=== PATIENT | male | born 1995 | race Caucasian/White ===

== ENCOUNTER 2021-03-04 10:44 | Emergency (ER) | payer BC, SELFPAY ==
[2021-03-04 10:45] VITALS: BP 155/87; PULSE 81; RESP 19; TEMP 36.8; O2SAT 98; BMI 39.4
--- NOTE | 2021-03-04 11:49 | HMH.EDUTC ---
[facility] [place]ression: Exposure to COVID-19 virus Disposition: Home, Self-Care Condition on Discharge: Good Instructions: Preventing the Spread of Coronavirus Discharge Instructions Additional Instructions: You have been tested for COVID19. Based on your history of exposure, please go ahead and assume you are positive and quarantine yourself. [facility] will contact you with further instructions. Referrals: Provider,Referral, [Primary Care Provider] - Time of Disposition: 11:57 Medical Decision Making - Reginald Inquiry Pt receiving controlled substance: No Vital Signs: 03/04/21 10:45 Temperature 98.2 F Temperature Source Oral Pulse Rate [Left Radial] 81 Respiratory Rate 19 Blood Pressure [Right Arm] 155/87 H Blood Pressure Mean [Right Arm] 109 Blood Pressure Source [Right Arm] Automatic Cuff Blood Pressure Position [Right Arm] Sitting 02 Sat by Pulse Oximetry 98 Oxygen Delivery Method Room Air Orders (Tests/Meds): ORDERS Category Date Time Status Covid-19 Nasal PCR ([facility]) Routine Lab 03/04/21 11:10 [place] [facility] [place] - General Stated complaint: covid test Time Seen by Provider: 03/04/21 11:55 Mode of Arrival: Ambulatory Source of Information: Patient Limitations: No Limitations Description of Symptoms (Recalled from Triage Doc. by RN): c/o headache, runny nose, cough, body aches and was exposed to someone with covid HEENT Symptoms (Recalled from RN notes): Yes Resp Symptoms (Recalled from RN notes): Yes Skin Symptoms (Recalled from RN notes): No MS Symptoms (Recalled from RN notes): No Functional Status (Recalled from RN notes): wnl - History of Present Illness Provider Complaint: Headache, runny nose, sore throat, cough. Started yesterday. No fever. Has been exposed to COVID19. Onset (ago): day(s) (1) Location: head Relieving factors: none Exacerbating factors: none Associated symptoms: cough, headaches, malaise Treatments prior to arrival: none - Related Data Allergies Allergy/AdvReac Type Severity Reaction Status Date / Time No Known Allergies Allergy Verified 03/04/21 11:22 - Worker's Comp Is this a Worker's Comp case?: No [facility] History - Hepatitis A Screen Drug use history?: No High risk sexual behaviors?: No History of sexually transmitted infection?: No Currently employed?: No Childcare worker?: No Do you have indoor plumbing?: Yes Do you have electricity?: Yes Attestation statement:: This patient has been screened for Hepatitis A risk factors. I have reviewed the patient's past medical history: Yes ROS Obtained: Yes All systems reviewed & no additional complaints - Constitutional Constitutional: Reports body ache, Reports chills, Reports headache(s), Reports malaise - ENT Ears, Nose, Mouth, and Throat: Reports nasal congestion, Reports sore throat - Respiratory Respiratory: Reports cough Physical Exam - General General appearance: alert, in no apparent distress - Head Head exam: normocephalic - Eye Eye exam: Present: PERRL - ENT ENT exam: Present: normal oropharynx, TM's normal bilaterally - Neck Neck exam: Present: normal inspection. Absent: lymphadenopathy - Chest Chest inspection: Present: symmetric chest wall rise - Respiratory Respiratory exam: Present: normal lung sounds bilaterally - Cardiovascular Cardiovascular exam: Present: regular rate, normal rhythm - Neurological Exam Neurological exam: Present: alert, oriented X3 - Psychiatric Psychiatric exam: Present: normal affect, normal mood - Skin Skin exam: Present: warm, dry, intact
[2021-03-04 12:07] VITALS: BP 155/87; PULSE 81; RESP 19; TEMP 36.8; O2SAT 98
== END 2021-03-04 12:08 | disposition home or self-care (01) ==
PROVIDERS: Emergency Provider Physician Assistant
DX: Z20.822 Contact with and (suspected) exposure to COVID-19 (principal); R05 Cough; R51.9 Headache, unspecified
CPT/HCPCS: 99202; G0463; U0003

== ENCOUNTER 2021-03-09 10:18 | Emergency (ER) | payer BC, SELFPAY ==
[2021-03-09 10:19] VITALS: BP 154/86; PULSE 85; RESP 19; TEMP 37; O2SAT 98; BMI 39.4
--- NOTE | 2021-03-09 11:03 | HMH.EDUTC ---
[facility] [place] Disposition Clinical Impression: Exposure to COVID-19 virus Disposition: Home, Self-Care Condition on Discharge: Good Instructions: DI for COVID-19 (Suspected or Confirmed ), Preventing the Spread of Coronavirus Discharge Instructions Additional Instructions: *Monitor Temp, Over the counter Motrin or Tylenol as directed/as needed Tylenol every 4 hours and Motrin every 6 hours (as long as your family doctor has told you that you can take it) for fever or pain. and straight to ER if unable to lower temp less than 101.0 after medication given *Warm salt water gargles may help to soothe the throat *Throat Lozenges *Warm fluids like tea with honey may help to soothe the throat *Sleep elevated *Humidifier/Vaporizer Follow up IMMEDIATELY for new or worsening symptoms or no Noticeable improvement over the next 48-72 hours. 911 for difficulty breathing or swallowing You were tested for today for COVID19 your test result should be back in the next 24-48 hours, you may call to the [facility] to see if your test results are back in the next 48 hours [phone] [facility] hours are 9am-9pm You was given a handout with instructions for Self Quarantine and Self isolation for while you wait on test results and what to do if they are positive If you are positive the Health Dept will be contacting you also Prescriptions: Brompheniramine/Pseudoephed/Dm [Bromfed Dm Cough Syrup] 5 - 10 ml PO Q46H PRN #200 ml PRN Reason: Cough Transmission Status: Pending to [facility] #[id number] Referrals: Provider,Referral, [Primary Care Provider] - As needed Forms: Work/School Release Time of Disposition: 11:10 Medical Decision Making - Reginald Inquiry Pt receiving controlled substance: No Reginald was queried for this patient: No Vital Signs: 03/09/21 10:19 Temperature 98.6 F Temperature Source Oral Pulse Rate [Left Radial] 85 Respiratory Rate 19 Blood Pressure [Right Arm] 154/86 H Blood Pressure Mean [Right Arm] 108 Blood Pressure Source [Right Arm] Automatic Cuff Blood Pressure Position [Right Arm] Sitting 02 Sat by Pulse Oximetry 98 Oxygen Delivery Method Room Air [facility] [place] HPI - General Stated complaint: covid exposure, symptoms Time Seen by Provider: 03/09/21 11:03 Mode of Arrival: Ambulatory Source of Information: Patient Limitations: No Limitations Description of Symptoms (Recalled from Triage Doc. by RN): c/o runny nose, sore throat since this moring, exposed to friend 3 days ago HEENT Symptoms (Recalled from RN notes): Yes Resp Symptoms (Recalled from RN notes): No Skin Symptoms (Recalled from RN notes): No MS Symptoms (Recalled from RN notes): No Functional Status (Recalled from RN notes): NA - History of Present Illness Provider Complaint: Patient states that he was around friend about 3 days ago that tested positive for COVID States that he woke up this morning with runny nose, sore throat and cough States that he is wanting to get tested for COVID Denies SOA, Denies chest pain - Related Data Previous Rx's Medication Instructions Recorded Brompheniramine/Pseudoephed/Dm 5 - 10 ml PO Q46H PRN #200 ml 03/09/21 [Bromfed Dm Cough Syrup] Allergies Allergy/AdvReac Type Severity Reaction Status Date / Time No Known Allergies Allergy Verified 03/04/21 11:22 - Worker's Comp Is this a Worker's Comp case?: No [facility] History - Hepatitis A Screen Drug use history?: No High risk sexual behaviors?: No History of sexually transmitted infection?: No Currently employed?: No Childcare worker?: No Do you have indoor plumbing?: Yes Do you have electricity?: Yes Attestation statement:: This patient has been screened for Hepatitis A risk factors. I have reviewed the patient's past medical history: Yes ROS Obtained: Yes All systems reviewed & no additional complaints, Yes Systems reviewed as appropriate & no additional complaints - Constitutional Constitutional: Reports system reviewed and no additional co
[2021-03-09 11:34] VITALS: BP 154/86; PULSE 85; RESP 19; TEMP 37; O2SAT 98
== END 2021-03-09 11:36 | disposition home or self-care (01) ==
PROVIDERS: Emergency Provider Nurse Practitioner
DX: Z20.822 Contact with and (suspected) exposure to COVID-19 (principal); R05 Cough; J02.9 Acute pharyngitis, unspecified
CPT/HCPCS: 99202; G0463; U0003

== ENCOUNTER 2021-04-24 08:33 | Emergency (ER) | payer BC, MEDICAID, SELFPAY ==
[2021-04-24 08:34] VITALS: BP 153/87; PULSE 111; RESP 20; TEMP 37; O2SAT 100; BMI 39.9
--- NOTE | 2021-04-24 08:46 | XR_ITS ---
PROCEDURE: XR FOOT RT MIN 3V CLINICAL INDICATION: trauma COMPARISON: No exams were available for comparison FINDINGS: No fracture or dislocation. No lytic or blastic change. There is normal mineralization. The joint spaces are well-preserved. No significant degenerative/arthritic changes. No erosive changes evident. Other findings:None. IMPRESSION: No acute findings. Dictated by: Quan Molina MD 04/24/2021 09:46 Quan Molina MD in [place] 04/24/2021 09:46
--- NOTE | 2021-04-24 09:16 | HMH.EDEXTP ---
ED Disposition Clinical Impression: Sprain of right foot Qualifiers: Encounter type: initial encounter Qualified Code(s): S93.601A - Unspecified sprain of right foot, initial encounter Disposition: Home, Self-Care Condition on Discharge: Good Instructions: DI for Foot Sprain Prescriptions: Ibuprofen [Ibuprofen 800mg Tablet] 800 mg PO TIDP PRN #20 tab PRN Reason: Moderate Pain Transmission Status: Pending to [facility] #[id number] Referrals: Provider,Referral, [Primary Care Provider] - - Critical Care Critical Care Time: No Attestation: On 04/24/21, the high probability of a clinically significant, sudden or life threatening deterioration of the following system(s) required my full and direct attention, intervention and personal management. The time I documented below is in addition to time spent performing reported procedures but includes the following listed in this critical care notation. Medical Decision Making - Medical Records Medical records reviewed: Yes: I reviewed the patient's medical records. - Reginald Inquiry Pt receiving controlled substance: No Vital Signs: 04/24/21 08:34 Temperature 98.6 F Temperature Source Oral Pulse Rate [Left Radial] 111 H Respiratory Rate 20 Blood Pressure [Right Arm] 153/87 H Blood Pressure Mean [Right Arm] 109 Blood Pressure Source [Right Arm] Automatic Cuff Blood Pressure Position [Right Arm] Sitting 02 Sat by Pulse Oximetry 100 Oxygen Delivery Method Room Air Orders (Tests/Meds): ED MEDICATIONS Discontinued Medications Generic Name Dose Route Start Last Admin Trade Name Freq PRN Reason Stop Dose Admin Ibuprofen 800 mg 04/24/21 08:46 04/24/21 08:50 Ibuprofen 400 Mg Tablet PO 04/24/21 08:47 800 mg ONCE ONE Administration - Radiology Data #1 Image(s): Foot/Toes Image Reviewed: Yes I reviewed the patient's radiology results, Yes I reviewed the patient's radiology image, Yes I have reviewed radiologist's interpretation Preliminary Findings: Normal/NAD - Reevaluation(s) Time: 10:00 Reevaluation #1: On reevaluation, patient's pain is improved. There is no evidence of fracture. Patient discharged short course of analgesics. Given musculoskeletal precautions and strict return precautions. Verbalized understanding. Medical Decision Narrative: 25-year-old male presenting with some right foot pain. Patient had an injury on Saturday. Concern for fracture versus sprain. Work-up initiated. Extremity Problem HPI - General Chief complaint: Extremity Problem,Nontraumatic Stated complaint: right foot pain, unknown orgin Time Seen by Provider: 04/24/21 08:40 Mode of Arrival: Ambulatory Limitations: No Limitations Description of Symptoms (Recalled from ER Triage Doc. by RN): c/o right foot pain denies any injury, STates that he stepped off a ladder on Saturday and felt pain in his foot but it went away and then returned Saturday. Some swelling noted to the top of his foot - History of Present Illness HPI Narrative: This is a 25-year-old male presented to the emergency department with some right foot pain. Patient states that he stepped off a ladder on Saturday and felt some pain instantly in the midfoot. He states that the pain slightly improved through the weekend, however when he was working today he felt worsening pain in his foot. He states it is dull in nature. It stays in his foot. No radiation. Worse when he tries to walk. He is not having any swelling. No pain at the ankle. Denies any chest pain or shortness of breath. Abdominal pain or vomiting. No headache or change in vision. - Related Data Previous Rx's Medication Instructions Recorded Brompheniramine/Pseudoephed/Dm 5 - 10 ml PO Q46H PRN #200 ml 03/09/21 [Bromfed Dm Cough Syrup] Ibuprofen [Ibuprofen 800mg 800 mg PO TIDP PRN #20 tab 04/24/21 Tablet] Allergies Allergy/AdvReac Type Severity Reaction Status Date / Time No Known [place]
[2021-04-24 10:21] VITALS: BP 155/70; PULSE 70; RESP 16; TEMP 36.8; O2SAT 98
== END 2021-04-24 10:22 | disposition home or self-care (01) ==
PROVIDERS: Emergency Provider Emergency Medicine
DX: S93.601A Unspecified sprain of right foot, initial encounter (principal); W11.XXXA Fall on and from ladder, initial encounter; Y92.019 Unspecified place in single-family (private) house as the place of occurrence of the external cause
CPT/HCPCS: 73630; 99282

== ENCOUNTER 2021-05-08 20:34 | Emergency (ER) | payer BC, OTHER, SELFPAY ==
[2021-05-08 20:35] VITALS: BP 137/95; PULSE 120; RESP 21; TEMP 36.8; O2SAT 98; BMI 39.9
[2021-05-08 21:00] VITALS: BP 126/93; PULSE 108; O2SAT 97
--- NOTE | 2021-05-08 21:05 | CT_ITS ---
PROCEDURE INFORMATION: Exam: CT Abdomen And Pelvis With Contrast Exam date and time: 05/08/2021 9:05 PM Age: 26 years old Clinical indication: Nausea and vomiting; Abdominal pain; Generalized; Patient HX: Abd pain with n/v TECHNIQUE: Imaging protocol: Computed tomography of the abdomen and pelvis with contrast. Radiation optimization: All CT scans at this facility use at least one of these dose optimization techniques: automated exposure control; mA and/or kV adjustment per patient size (includes targeted exams where dose is matched to clinical indication); or iterative reconstruction. Contrast material: ISOVUE; Contrast volume: 75 ml; Contrast route: IV; Other contrast: Oral, gastro; COMPARISON: No relevant prior studies available. FINDINGS: Lungs: Lung bases are clear. Liver: There is enlargement of the liver, measuring 25 cm. There is a diffuse decrease in hepatic parenchymal density, consistent with fatty infiltration. The liver is otherwise unremarkable. Gallbladder and bile ducts: Normal. No calcified stones. No ductal dilation. Pancreas: Normal. No ductal dilation. Spleen: Normal. No splenomegaly. Adrenal glands: Normal. No mass. Kidneys and ureters: Normal. No hydronephrosis. Stomach and bowel: Unremarkable. No obstruction. No mucosal thickening. Appendix: No evidence of appendicitis. Intraperitoneal space: Unremarkable. No free air. No significant fluid collection. Vasculature: Unremarkable. No abdominal aortic aneurysm. Lymph nodes: Unremarkable. No enlarged lymph nodes. Urinary bladder: Unremarkable as visualized. Reproductive: Unremarkable as visualized. Bones/joints: Unremarkable. No acute fracture. Soft tissues: Unremarkable. IMPRESSION: Negative for acute abdominopelvic pathology.
[2021-05-08 21:09] LABS: Microscopic, Urine URINE MICROSCOPIC (MICROSCOPIC)
[2021-05-08 21:11] LABS: Appearance,Urine CLEAR (Clear); Basophils # 0.1 K/mm3 (0-0.2); Basophils % 0.6 % (0.1-2.0); Bilirubin,Urine Negative (Negative); Blood, Urine TRACE-I (Negative); Color,Urine YELLOW (Yellow); Eosinophils # 0.2 K/mm3 (0.0-0.4); Eosinophils % 0.9 % (0.1-12.0); Glucose,Urine (UA) Negative (Negative); Hematocrit 46.8 % (42.0-52.0); Hemoglobin 15.3 g/dL (14.1-18.0); Ketones,Urine Negative (Negative); Leukocyte Esterase,Urine Negative (Negative); Lymphocytes # 4.7 K/mm3 (0.7-4.5); Lymphocytes % 24.7 % (10-50); Mean Corpuscular HGB Conc 32.8 g/dL (31.8-35.4); Mean Corpuscular Hemoglobin 27.4 pg (27.0-31.2); Mean Corpuscular Volume 83.6 fl (80-94); Mean Platelet Volume 7.2 fl (7.4-10.4); Monocytes # 0.8 K/mm3 (0.1-1.0); Neutrophils # 13.3 K/mm3 (1.8-7.8); Neutrophils % 69.7 % (37.0-80.0); Nitrate,Urine Negative (Negative); PH,Urine 5.5 (5.0-8.5); Platelet Count 536 K/mm3 (142-424); Protein,Urine Negative (Negative); Red Cell Distribution Width 13.4 % (11.5-17.5); Specific Gravity, Urine >= 1.030 (1.005-1.030); Urobilinogen,Urine 0.2 EU/dl (0.2)
--- NOTE | 2021-05-08 21:16 | HMH.EDNVD ---
ED Disposition Clinical Impression: Abdominal pain Qualifiers: Abdominal location: generalized Qualified Code(s): R10.84 - Generalized abdominal pain Disposition: Home, Self-Care Condition on Discharge: Good Instructions: DI for Acute Abdominal Pain Additional Instructions: call gi in am for follow up Referrals: Provider,Referral, [Primary Care Provider] - - Critical Care Critical Care Time: No Attestation: On 05/08/21, the high probability of a clinically significant, sudden or life threatening deterioration of the following system(s) required my full and direct attention, intervention and personal management. The time I documented below is in addition to time spent performing reported procedures but includes the following listed in this critical care notation. Medical Decision Making - Medical Records Medical records reviewed: Yes: I reviewed the patient's medical records. - Reginald Inquiry Pt receiving controlled substance: No Vital Signs: 05/08/21 20:35 05/08/21 21:00 05/08/21 21:30 Temperature 98.2 F Temperature Source Oral Pulse Rate 108 H 96 H Pulse Rate [Right Radial] 120 H Respiratory Rate 21 Blood Pressure 126/93 H 139/76 Blood Pressure [Right Arm] 137/95 H Blood Pressure Mean [Right Arm] 109 Blood Pressure Source [Right Arm] Automatic Cuff Blood Pressure Position [Right Arm] Sitting 02 Sat by Pulse Oximetry 98 97 97 Oxygen Delivery Method Room Air Room Air Room Air 05/08/21 22:00 05/08/21 22:30 Temperature Temperature Source Pulse Rate 89 88 Pulse Rate [Right Radial] Respiratory Rate Blood Pressure 120/78 133/66 Blood Pressure [Right Arm] Blood Pressure Mean [Right Arm] Blood Pressure Source [Right Arm] Blood Pressure Position [Right Arm] 02 Sat by Pulse Oximetry 98 96 Oxygen Delivery Method Room Air Room Air - Lab Data Lab results reviewed: Yes: I reviewed the patient's lab results. Lab Results 05/08/21 20:51: WBC 19.0 H, RBC 5.60, Hgb 15.3, Hct 46.8, MCV 83.6, MCH 27.4, MCHC 32.8, RDW 13.4, Plt Count 536 H, MPV 7.2 L, Neut % (Auto) 69.7, Lymph % (Auto) 24.7, [place] % (Auto) 4.0, Eos % (Auto) 0.9, Baso % (Auto) 0.6, Neut # (Auto) 13.3 H, Lymph # (Auto) 4.7 H, [place] # (Auto) 0.8, Eos # (Auto) 0.2, Baso # (Auto) 0.1, Total Counted 100, Neutrophils % (Manual) 67, Lymphocytes % (Manual) 24, Monocytes % (Manual) 8, Eosinophils % (Manual) 1, Platelet Estimate Slight increase, RBC Morphology Normal, ESR 9 05/08/21 20:51: Sodium 139, Potassium 3.9, Chloride 106, Carbon Dioxide 24, Anion Gap 12.9, BUN 10, Creatinine 0.60 L, Estimated Creat Clear 390 H, Estimated GFR 166, Est GFR ( Amer) 200, Glucose 107 H, Calcium 9.2, Total Bilirubin 1.1, AST 31, ALT 34, Alkaline Phosphatase 68, C-Reactive Protein 8.6 H, Total Protein 8.1, Albumin 4.5, Globulin 3.6 H, Albumin/Globulin Ratio 1.3, Amylase 63, Lipase 45, Procalcitonin 0.064 05/08/21 20:51: Urine Color Yellow, Urine Appearance Clear, Urine pH 5.5, Ur Specific [place] >= 1.030, Urine Protein Negative, Urine Glucose (UA) Negative, Urine Ketones Negative, Urine Blood Trace-i, Urine Nitrate Negative, Urine Bilirubin Negative, Urine Urobilinogen 0.2, Ur Leukocyte Esterase Negative, Urine RBC 3-5, Urine WBC Occasional, Ur Squamous Epith Cells Occasional, Urine Bacteria None Result diagrams: 05/08/21 20:51 05/08/21 20:51 Orders (Tests/Meds): ED MEDICATIONS Generic Name Dose Route Start Last Admin Trade Name Freq PRN Reason Stop Dose Admin Lactated Ringer's 1,000 mls @ 999 mls/hr 05/08/21 21:15 05/08/21 21:15 Lactated Ringer's 1000 Ml Bag IV 05/08/21 22:15 999 mls/hr .Q1H1M ARISTEO Administration Sodium Chloride 8 ml 05/08/21 21:08 Sodium Chloride 0.9% 10ml Vial IV 06/07/21 21:07 NEEDED PRN dilute pepcid Discontinued Medications Generic Name Dose Route Start Last Admin Trade Name Freq PRN Reason Stop Dose Admin Famotidine 20 mg 05/08/21 21:08 05/08/21 21:16 Famoti
--- NOTE | 2021-05-08 21:17 | PC.NURSE ---
Pt finished PO contrast at this time
[2021-05-08 21:19] LABS: MANUAL DIFFERENTIAL MANUAL DIFFERENTIAL (MANUAL DIFF)
[2021-05-08 21:23] LABS: WBC,Urine Occasional #/hpf (0-3)
[2021-05-08 21:24] LABS: Alanine Aminotransferase 34 U/L (12-78); Albumin Level 4.5 g/dl (3.5-5.0); Albumin/Globulin Ratio 1.3 (1.1-1.8); Alkaline Phosphatase 68 U/L (38-126); Amylase 63 U/L (30-110); Anion Gap 12.9 mEq/L (5-15); Aspartate Amino Transferase 31 U/L (17-59); Bilirubin,Total 1.1 mg/dl (0.2-1.3); Blood Urea Nitrogen 10 mg/dl (9-20); Calcium 9.2 mg/dl (8.4-10.2); Carbon Dioxide 24 mmol/L (22.0-30.0); Chloride 106 mmol/L (98-107); Creatinine Clearance Estimated 390 mL/min (50-200); Estimated Glomerular Filt Rate 166 ml/min (>60); GFR (African American) 200 ML/MIN (>60); Globulin 3.6 g/dL (1.3-3.2); Glucose 107 mg/dl (74-100); Lipase 45 U/L (23-300); Potassium 3.9 mmoL/L (3.5-5.1); Sodium 139 mmol/L (136-145); Squamous Epithelial Cell,Urine Occasional #/hpf (0-5); Total Protein,Serum 8.1 g/dl (6.3-8.2)
[2021-05-08 21:30] VITALS: BP 139/76; PULSE 96; O2SAT 97
[2021-05-08 21:31] LABS: Eosinophils % 1 % (0-3); Lymphocytes % 24 % (10-50); Monocytes % 8 % (2-9); Neutrophils % 67 % (42-76); Total Cells Counted 100
[2021-05-08 21:32] LABS: Platelet Estimate Slight Increase; RBC Morphology Normal
[2021-05-08 21:37] LABS: C-Reactive Protein 8.6 mg/L (0-4)
[2021-05-08 21:48] LABS: Erythrocyte Sedimentation Rate 9 mm/hr (0-15)
[2021-05-08 21:50] LABS: Procalcitonin 0.064 ng/mL (0.0-2.0)
[2021-05-08 22:00] VITALS: BP 120/78; PULSE 89; O2SAT 98
[2021-05-08 22:30] VITALS: BP 133/66; PULSE 88; O2SAT 96
[2021-05-09 00:30] VITALS: BP 130/88; PULSE 92; RESP 16; TEMP 36.7; O2SAT 96
== END 2021-05-09 00:33 | disposition home or self-care (01) ==
PROVIDERS: Emergency Provider Emergency Medicine
DX: R10.9 Unspecified abdominal pain (principal)
CPT/HCPCS: 74177; 80053; 81001; 82150; 83690; 84145; 85007; 85025; 85651; 86140; 96365; 96375; 99283; J2405; Q9967

== ENCOUNTER 2021-07-24 11:31 | Emergency (ER) | payer OTHER, SELFPAY ==
[2021-07-24 13:12] VITALS: BP 0/0; PULSE 0; RESP 0; TEMP -17.7; TEMP 0
== END 2021-07-24 13:16 | disposition left against medical advice (07) ==
LOC: UTC 11:33
PROVIDERS: Emergency Provider Nurse Practitioner
DX: Z53.21 Procedure and treatment not carried out due to patient leaving prior to being seen by health care provider (principal)

== ENCOUNTER 2021-07-27 20:21 | Emergency (ER) | payer OTHER, SELFPAY ==
[2021-07-27 20:44] VITALS: BP 160/95; PULSE 102; RESP 14; TEMP 36.8; O2SAT 96; BMI 39.9
--- NOTE | 2021-07-27 20:48 | HMH.EDUTC ---
[facility] – [place], [place] Disposition Clinical Impression: Strep throat Disposition: Home, Self-Care Condition on Discharge: Good Instructions: Strep Throat, DI for Strep Throat Additional Instructions: *Monitor Temp, Over the counter Motrin or Tylenol as directed/as needed Tylenol every 4 hours and Motrin every 6 hours (as long as your family doctor has told you that you can take it) for fever or pain. and straight to ER if unable to lower temp less than 101.0 after medication given *Warm salt water gargles may help to soothe the throat *Throat Lozenges *Warm fluids like tea with honey may help to soothe the throat *Sleep elevated *Humidifier/Vaporizer *If you did not take Penicillin shot or was unable to, start taking antibiotic immediately and make sure that you take it for the FULL length of time although you should start to feel better in 24-48 hours *change toothbrush and toothpaste 24-48 hours after starting to take antibiotics so you do not reinfect yourself Monitor Temp. Tylenol and/or Ibuprofen as needed. ER if fever is no less than 101 despite alternating Tylenol and Ibuprofen * Encourage fluids, water, Gatorade, powerade, pedialyte if infant/toddler/or child *Cold fluids, popsicles and ice cream may feel good on his throat * Follow up IMMEDIATELY for new or worsening symptoms or no Noticeable improvement over the next 48-72 hours. 911 for difficulty breathing or swallowing You were tested for today for COVID19 your test result should be back in the next 24-48 hours, you may check your results on the [facility] My Health Portal if you have trouble logging on you may call You was given a handout with instructions for Self Quarantine and Self isolation for while you wait on test results and what to do if they are positive If you are positive the Health Dept will be contacting you also Make sure to take your Vitamins Vit. C Vit D and Zinc if you can take them Prescriptions: Benzonatate [Benzonatate 100mg cap] 100 mg PO Q8HP PRN #15 cap PRN Reason: Cough Transmission Status: Pending to [facility] # Amoxicillin [Amoxicillin 500mg Cap] 500 mg PO TID #30 cap Transmission Status: Pending to [facility] # Ondansetron [Zofran 4mg ODT] 4 mg PO TIDP PRN #10 tab PRN Reason: Vomiting Transmission Status: Pending to [facility] #[id number] Referrals: Provider,Referral, [Primary Care Provider] - As needed Time of Disposition: 21:29 Medical Decision Making - Reginald Inquiry Pt receiving controlled substance: No Reginald was queried for this patient: No Vital Signs: 07/27/21 20:44 07/27/21 21:17 Temperature 98.2 F 98.2 F Temperature Source Oral Pulse Rate 102 H Pulse Rate [Left] 102 H Respiratory Rate 14 14 Blood Pressure 160/95 H Blood Pressure [Right Arm] 160/95 H Blood Pressure Mean [Right Arm] 116 02 Sat by Pulse Oximetry 96 - Lab Data Lab results reviewed: Yes: I reviewed the patient's lab results. Lab Results 07/27/21 20:48: Influenza Type A Ag Negative, Influenza Type B Ag Negative 07/27/21 20:48: Strep Scn Rapid Clinic Positive A [facility] [place] [place] HPI - General Stated complaint: cough, headache congestion loss of taste, congesti Time Seen by Provider: 07/27/21 20:49 Mode of Arrival: Ambulatory Source of Information: Patient Limitations: No Limitations Description of Symptoms (Recalled from Triage Doc. by RN): pt c/o a fever, cough, loss of taste, sore throat, and n/v/d. pt finished his covid quarentine 07/12 HEENT Symptoms (Recalled from RN notes): Yes (sore throat) Resp Symptoms (Recalled from RN notes): Yes (cough) Skin Symptoms (Recalled from RN notes): No MS Symptoms (Recalled from RN notes): No Functional Status (Recalled from RN notes): wnl - History of Present Illness Provider Complaint: Patient state that he just got off quarantine for COVID on 07/12 States that he hasnt been able to taste States that for the last few days he has been having sore throat and hurts w
[2021-07-27 21:04] LABS: UTC Influenza A Antigen Negative (Negative); UTC Strep Screen (Rapid) Positive (Negative)
[2021-07-27 21:05] LABS: UTC Influenza B Antigen Negative (Negative)
[2021-07-27 21:17] VITALS: BP 160/95; PULSE 102; RESP 14; TEMP 36.8
== END 2021-07-27 21:43 | disposition home or self-care (01) ==
PROVIDERS: Emergency Provider Nurse Practitioner
DX: J02.0 Streptococcal pharyngitis (principal)
CPT/HCPCS: 87804; 87880; 99203; G0463

== ENCOUNTER → 2022-03-16 11:52 | Outpatient (CLI) | payer BC, OTHER, SELFPAY ==
--- NOTE | 2022-03-16 11:58 | XR_ITS ---
FINAL REPORT CLINICAL HISTORY: RT HIP PAIN FINDINGS: RIGHT HIP Two views of the right hip with an AP pelvis demonstrate no acute fracture or dislocation. The joint spaces appear normal. The visualized bony structures are well aligned. No soft tissue abnormality is seen. IMPRESSION: No acute bony abnormality. Reviewed, Interpreted and Dictated by Aubrey Sprague III, MD Transcribed by Caity Martinez Authenticated and . [facility]
== END ==
PROVIDERS: PCP Family Medicine; Visit Provider Family Medicine
DX: M25.551 Pain in right hip (principal)
CPT/HCPCS: 73502

== ENCOUNTER 2022-06-07 08:53 | Emergency (ER) | payer BC, SELFPAY ==
--- NOTE | 2022-06-07 09:16 | EXP.UTC ---
Discharge Plan Disposition Patient Disposition: Home, Self-Care Condition: Good Prescriptions Prescriptions: New srthnuwyhzapbgn-tujmzjfmm-HM [Bromfed DM] 2-30-10 mg/5 mL Syrup 5 ml PO Q6H PRN (Reason: Cough) Qty: 240 0RF amoxicillin-pot clavulanate 875-125 mg Tablet 1 tab PO Q12H Qty: 20 0RF methylprednisolone 4 mg Tablets,Dose Pack 4 mg PO DIRECTED Qty: 21 0RF No Action amoxicillin 500 MG capsule 500 mg PO TID Qty: 30 0RF benzonatate 100 MG capsule 100 mg PO Q8HP PRN (Reason: Cough) Qty: 15 0RF ondansetron 4 MG tablet,disintegrating 4 mg PO TIDP PRN (Reason: Vomiting) Qty: 10 0RF Referrals Follow up/Referrals: Karsten Draper MD [Primary Care Provider] - See instructions Activity Restrictions/Add. Instructions Additional Instructions/Restrictions: Drink plenty of fluids. Take tylenol or ibuprofen for pain or fever. Take the medications as directed. Follow up with your regular doctor. GO TO THE ER FOR ANY WORSENING SYMPTOMS Throw your tooth brush away and get a new one. Clinical Impressions Clinical Impression: Strep throat Instructions Patient Instructions: Strep Throat, DI for Strep Throat Discharge ED Provider: Kyle Galeano [facility] General Stated complaint: Sore throat, fever Time Seen by Provider: 06/07/22 09:16 History of Present Illness Provider Complaint: He states that he has had a sore throat, fever and body aches for the past 2 days. Related Data Previous Rx's Medication Instructions Recorded amoxicillin 500 mg capsule 500 mg PO TID #30 caps 07/27/21 benzonatate 100 mg capsule 100 mg PO Q8HP PRN Cough #15 caps 07/27/21 ondansetron 4 mg disintegrating 4 mg PO TIDP PRN Vomiting #10 tabs 07/27/21 tablet amoxicillin 875 mg-potassium 1 tab PO Q12H #20 tabs 06/07/22 clavulanate 125 mg tablet tcqkehkkfpziewj-ptzjzqrvqhyraad-JZ 5 ml PO Q6H PRN Cough #240 mL 06/07/22 2 mg-30 mg-10 mg/5 mL oral syrup (Bromfed DM) methylprednisolone 4 mg tablets in 4 mg PO DIRECTED #21 tabs 06/07/22 a dose pack Allergies Allergy/AdvReac Type Severity Reaction Status Date / Time No Known Allergies Allergy Verified 06/07/22 09:25 PFSH PFS Social History Smoking Status: Never smoker alcohol intake: never current occupational status: employed Travel in the last 8 weeks: None ROS Obtained: Yes All systems reviewed & no additional complaints except as documented Constitutional Constitutional: Reports chills and Reports fever(s) Eyes Eyes: Denies eye discharge ENT Ears, Nose, Mouth, and Throat: Reports as per HPI Cardiovascular Cardiovascular: Denies chest pain Respiratory Respiratory: Denies chest congestion and Reports cough Gastrointestinal Gastrointestingal: Reports nausea; Denies abdominal pain, constipation, cramping, diarrhea or vomiting Musculoskeletal Musculoskeletal: Denies arthralgias Integumentary/Breasts Skin/Breast: Denies rash Neurologic Neurologic: Denies paresthesias Physical Exam General General appearance: alert and in no apparent distress Head Head exam: atraumatic, normocephalic and normal inspection Eye Eye exam: Present normal appearance, PERRL and EOMI ENT ENT exam: Present mucous membranes moist and normal external ear exam Expanded ENT Exam TM/Canal exam: Bilateral TM: erythema and bulging Nose exam: Absent sinus tenderness Mouth exam: Present normal external inspection; Absent drooling Teeth exam: Present normal inspection Throat exam: Present tonsillar erythema, tonsillomegaly and tonsillar exudate Neck Neck exam: Present normal inspection, full ROM and trachea midline; Absent tenderness, meningismus or lymphadenopathy Chest Chest inspection: Present normal inspection and symmetric chest wall rise; Absent tenderness Respiratory Respiratory exam: Present normal lung sounds bilaterally; Absent respiratory distress, wheezes or stridor Cardiova
[2022-06-07 09:23] VITALS: BP 150/79; PULSE 90; RESP 18; TEMP 36.9; O2SAT 98; BMI 39.1
[2022-06-07 09:29] LABS: UTC Strep Screen (Rapid) Positive (Negative)
[2022-06-07 09:57] VITALS: BP 150/79; PULSE 90; RESP 18; TEMP 36.9
== END 2022-06-07 10:03 | disposition home or self-care (01) ==
PROVIDERS: Emergency Provider Nurse Practitioner Family; PCP Family Medicine
DX: J02.0 Streptococcal pharyngitis (principal); B95.0 Streptococcus, group A, as the cause of diseases classified elsewhere; R50.9 Fever, unspecified; M79.10 Myalgia, unspecified site; R05.9 Cough, unspecified; Z79.52 Long term (current) use of systemic steroids; Z79.899 Other long term (current) drug therapy
CPT/HCPCS: 87880; 99213; G0463

== ENCOUNTER 2022-11-06 19:27 | Emergency (ER) | payer BC, SELFPAY ==
[2022-11-06 19:29] VITALS: BP 171/100; PULSE 115; RESP 20; TEMP 37; O2SAT 99; BMI 40.6
--- NOTE | 2022-11-06 19:37 | CT_ITS ---
PROCEDURE INFORMATION: Exam: CT Head Without Contrast Exam date and time: 11/06/2022 7:58 PM Age: 27 years old Clinical indication: Injury or trauma; Additional info: Hit head TECHNIQUE: Imaging protocol: Computed tomography of the head without contrast. Radiation optimization: All CT scans at this facility use at least one of these dose optimization techniques: automated exposure control; mA and/or kV adjustment per patient size (includes targeted exams where dose is matched to clinical indication); or iterative reconstruction. REPORTING DATA: Count of CT and Cardiac NM exams in prior 12 months: This patient has received 0 known CTs and 0 known cardiac nuclear medicine studies in the 12 months prior to the current study. COMPARISON: No relevant prior studies available. FINDINGS: Brain: Normal. No hemorrhage. Unremarkable white matter. No mass effect. Cerebral ventricles: No ventriculomegaly. Paranasal sinuses: Visualized sinuses are unremarkable. No fluid levels. Mastoid air cells: Visualized mastoid air cells are well aerated. Bones/joints: Unremarkable. No acute fracture. Soft tissues: Unremarkable. IMPRESSION: No acute intracranial abnormality.
[2022-11-06 19:51] LABS: Coronavirus 19, PCR Not Detected (NotDetected); Influenza A, PCR Not Detected (NotDetected); Influenza B, PCR Not Detected (NotDetected)
[2022-11-06 19:56] LABS: Basophils # 0.1 K/mm3 (0-0.2); Basophils % 0.6 % (0.1-2.0); Chloride 100 mmol/L (98-107); Eosinophils # 0.2 K/mm3 (0.0-0.4); Eosinophils % 1.3 % (0.1-12.0); Hematocrit 45.3 % (42.0-52.0); Hemoglobin 14.9 g/dL (14.1-18.0); Lymphocytes # 2.9 K/mm3 (0.7-4.5); Mean Corpuscular HGB Conc 32.9 g/dL (31.8-35.4); Mean Corpuscular Hemoglobin 26.8 pg (27.0-31.2); Mean Corpuscular Volume 81.4 fl (80-94); Monocytes # 0.9 K/mm3 (0.1-1.0); Monocytes % 7.7 % (1.7-9.3); Neutrophils # 7.5 K/mm3 (1.8-7.8); Neutrophils % 65.3 % (37.0-80.0); Platelet Count 439 K/mm3 (142-424); Potassium 3.4 mmoL/L (3.5-5.1); Red Blood Count 5.57 M/mm3 (4.60-6.20); Red Cell Distribution Width 13.5 % (11.5-17.5); Sodium 140 mmol/L (136-145); White Blood Count 11.4 K/mm3 (4.8-10.8)
[2022-11-06 19:58] LABS: Amylase 58 U/L (30-110); Blood Urea Nitrogen 14 mg/dl (9-20); Creatinine Clearance Estimated 235 mL/min (50-200); Estimated Glomerular Filt Rate 91 ml/min (>60); GFR (African American) 110 ML/MIN (>60)
[2022-11-06 19:59] LABS: Alanine Aminotransferase 51 U/L (12-78); Albumin Level 4.7 g/dl (3.5-5.0); Albumin/Globulin Ratio 1.4 (1.1-1.8); Alkaline Phosphatase 67 U/L (38-126); Anion Gap 16.4 mEq/L (5-15); Aspartate Amino Transferase 40 U/L (17-59); Bilirubin,Total 1.5 mg/dl (0.2-1.3); Calcium 8.9 mg/dl (8.4-10.2); Carbon Dioxide 27 mmol/L (22.0-30.0); Globulin 3.3 g/dL (1.3-3.2); Glucose 96 mg/dl (74-100); Lipase 56 U/L (23-300)
[2022-11-06 20:05] LABS: C-Reactive Protein 32.7 mg/L (0-4)
[2022-11-06 20:31] VITALS: BP 129/75; PULSE 98; O2SAT 96
[2022-11-06 20:35] LABS: Procalcitonin 0.161 ng/mL (0.0-2.0)
[2022-11-06 20:42] LABS: Erythrocyte Sedimentation Rate 15 mm/hr (0-15)
[2022-11-06 21:00] VITALS: BP 122/67; PULSE 101; O2SAT 97
--- NOTE | 2022-11-06 21:14 | PC.NURSE ---
in room at this time speaking with patient
--- NOTE | 2022-11-06 21:17 | HMH.EDTRAUMA ---
Discharge Plan Disposition Patient Disposition: Home, Self-Care Chief Complaint: Head Injury Prescriptions Prescriptions: No Action No Known Home Medications Referrals Follow up/Referrals: Karsten Draper MD [Primary Care Provider] - See instructions Clinical Impressions Clinical Impression: Head injury due to trauma, Post-concussional syndrome Instructions Patient Instructions: DI for Closed Head Injury Discharge ED Provider: Corey PEREZ)Ludwig Trauma Alert The Trauma Alert Section documentation for [id number] Justin Lopez was populated with data that defaulted in from the production supervisor in the Trauma Alert Triage Assessment on f_Reg Service Date] to provide within this report, the status of the patient on arrival to the ED during the Trauma Alert. Arrival Mode of Arrival: Ambulatory Information Source: Patient, Spouse and Medical Record Limitations: No Limitations Description of Symptoms (Recalled from ER Triage Doc. by RN): pt states yesterday was bend over and rised up and hit head on mantle. pt c/o KANG, n/v and fever. Height/Weight/BMI Height: 1.91 m Weight: 147.418 kg Body Mass Index: 40.6 Immunization Status Hx Immunizations Up to Date: Yes Trauma HPI General Chief Complaint: Head Injury Stated Complaint: AO 11/05@1300 [address],KANG,Nausa Time Seen by Provider: 11/06/22 21:18 Mode of Arrival: Ambulatory Source of Information: Patient, Spouse and Medical Record Limitations: No Limitations Description of Symptoms (Recalled from ER Triage Doc. by RN): pt states yesterday was bend over and rised up and hit head on mantle. pt c/o KANG, n/v and fever. History of Present Illness HPI narrative: raised up and hit head yesterday at 1300 - no loc but has kang but no neck pain and has nausea and vomiting but no visual or speech sx and no sensory or motor sx - temp of 100 at home complaint: injury Onset (ago): day(s) Loss of Consciousness: no Location: head Severity: moderate Associated symptoms: headaches, nausea and vomiting Related Data Home Medications Medication Instructions Recorded Confirmed No Known Home Medications 11/06/22 11/06/22 Allergies Allergy/AdvReac Type Severity Reaction Status Date / Time No Known Allergies Allergy Verified 06/07/22 09:25 [facility] Disclaimer: The information contained in this section may have been updated after the patient was seen, as this information can be updated by other users. Social History (Updated 06/07/22 @ 09:38 by Kyle Galeano APRN) Smoking Status: Never smoker alcohol intake: never current occupational status: employed Travel in the last 8 weeks: None ROS Obtained: Yes All systems reviewed & no additional complaints except as documented Physical Exam General General appearance: alert Head Head exam: normocephalic and normal inspection Eye Eye exam: Present PERRL and EOMI; Absent nystagmus ENT ENT exam: Present mucous membranes moist Neck Neck exam: Present trachea midline Respiratory Respiratory exam: Present normal lung sounds bilaterally; Absent respiratory distress Cardiovascular Cardiovascular exam: Present regular rate Abdominal Exam Abdominal exam: Present soft Extremities Exam Extremities exam: Present full ROM Neurological Exam Neurological exam: Present alert, oriented X3, CN II-XII intact, normal gait and other (gcs=15); Absent motor sensory deficit Psychiatric Psychiatric exam: Present normal affect Skin Skin exam: Absent rash Medical Decision Making Medical Records Medical records reviewed: Yes I reviewed the patient's medical records. Reginald Inquiry Pt receiving controlled substance: No Vital Signs: 11/06/22 19:29 11/06/22 20:31 Temperature 98.6 F Temperature Source Oral Pulse Rate 98 H Pulse Rate [Right] 115 H Respiratory Rate 20 Blood Pressure 129/75 Blood Pressure [Right Arm] 171/100 H Blood Pressure Mean [Right Arm] 123 02 Sat by Pulse Oximetry
[2022-11-06 21:20] VITALS: BMI 40.6
[2022-11-06 21:30] VITALS: BP 140/78; PULSE 100; O2SAT 96
--- NOTE | 2022-11-06 21:32 | PC.NURSE ---
spoke with dr burnett re: follow up
[2022-11-06 21:36] VITALS: BP 126/80; PULSE 81; RESP 17; TEMP 36.6; O2SAT 98
== END 2022-11-06 21:39 | disposition home or self-care (01) ==
PROVIDERS: Emergency Provider Emergency Medicine; PCP Family Medicine
DX: F07.81 Postconcussional syndrome (principal); R11.0 Nausea; W01.190A Fall on same level from slipping, tripping and stumbling with subsequent striking against furniture, initial encounter
CPT/HCPCS: 70450; 80053; 82150; 83690; 84145; 85025; 85651; 86140; 96360; 96374; 99284; 99285; C9803; J2405; U0003; U0005

== ENCOUNTER → 2023-02-01 13:06 | Outpatient (CLI) | payer BC, SELFPAY | PROVIDERS: PCP Family Medicine; Visit Provider Family Medicine | DX: G47.30 Sleep apnea, unspecified (principal); I10 Essential (primary) hypertension; E66.01 Morbid (severe) obesity due to excess calories | CPT/HCPCS: G0399 ==

== ENCOUNTER → 2023-04-16 16:00 | Outpatient (CLI) | payer BC, SELFPAY ==
[2023-04-16 18:23] LABS: Adenovirus,PCR Not Detected (NotDetected); Bordetella Pertussis Not Detected (NotDetected); Chlamydophila Pneumoniae, PCR Not Detected (NotDetected); Coronavirus 19, PCR Not Detected (NotDetected); Coronavirus 229E Not Detected (NotDetected); Coronavirus NL63 Not Detected (NotDetected); Coronavirus OC43 Not Detected (NotDetected); Coronovirus HKU1,PCR Not Detected (NotDetected); Human Metapneumovirus Not Detected (NotDetected); Influenza A, PCR Not Detected (NotDetected); Influenza AH1, 2009 Not Detected (NotDetected); Influenza AH1, PCR Not Detected (NotDetected); Influenza AH3,PCR Not Detected (NotDetected); Influenza B, PCR Not Detected (NotDetected); Mycoplasma Pneumoniae, PCR Not Detected (NotDetected); Parainfluenza 1, PCR Not Detected (NotDetected); Parainfluenza 2, PCR Not Detected (NotDetected); Parainfluenza 3, PCR Not Detected (NotDetected); Parainfluenza 4, PCR Not Detected (NotDetected); Respiratory Syncytial Virus Not Detected (NotDetected); Rhinovirus/Enterovirus Not Detected (NotDetected)
== END ==
LOC: LAB.DROPOF 04-17 08:01
PROVIDERS: PCP Nurse Practitioner Family; Visit Provider Nurse Practitioner Family
DX: J02.9 Acute pharyngitis, unspecified (principal); R50.9 Fever, unspecified; R19.7 Diarrhea, unspecified
CPT/HCPCS: 87070; 87581; 87632; 87798

== ENCOUNTER 2023-06-04 02:19 | Emergency (ER) | payer BC, SELFPAY ==
[2023-06-04 02:20] VITALS: BP 153/91; PULSE 97; RESP 21; TEMP 36.5; O2SAT 100; BMI 39.9
[2023-06-04 02:49] LABS: Basophils # 0.1 K/mm3 (0-0.2); Basophils % 0.9 % (0.1-2.0); Eosinophils # 0.2 K/mm3 (0.0-0.4); Eosinophils % 1.7 % (0.1-12.0); Hematocrit 44.7 % (42.0-52.0); Hemoglobin 15.1 g/dL (14.1-18.0); Lymphocytes # 5.8 K/mm3 (0.7-4.5); Lymphocytes % 41.5 % (10-50); Mean Corpuscular HGB Conc 33.8 g/dL (31.8-35.4); Mean Corpuscular Hemoglobin 27.9 pg (27.0-31.2); Mean Corpuscular Volume 82.6 fl (80-94); Mean Platelet Volume 7.2 fl (7.4-10.4); Monocytes # 0.8 K/mm3 (0.1-1.0); Monocytes % 5.5 % (1.7-9.3); Neutrophils # 7.1 K/mm3 (1.8-7.8); Neutrophils % 50.5 % (37.0-80.0); Platelet Count 422 K/mm3 (142-424); Red Blood Count 5.41 M/mm3 (4.60-6.20); Red Cell Distribution Width 13.6 % (11.5-17.5)
[2023-06-04 02:51] LABS: Chloride 103 mmol/L (98-107); Potassium 3.7 mmoL/L (3.5-5.1); Sodium 140 mmol/L (136-145)
[2023-06-04 02:53] LABS: Blood Urea Nitrogen 13 mg/dl (9-20); Creatinine Clearance Estimated 287 mL/min (50-200); Estimated Glomerular Filt Rate 117 ml/min (>60); GFR (African American) 141 ML/MIN (>60)
[2023-06-04 02:54] LABS: Alanine Aminotransferase 49 U/L (12-78); Albumin Level 4.6 g/dl (3.5-5.0); Albumin/Globulin Ratio 1.3 (1.1-1.8); Alkaline Phosphatase 63 U/L (38-126); Anion Gap 12.7 mEq/L (5-15); Aspartate Amino Transferase 42 U/L (17-59); Carbon Dioxide 28 mmol/L (22.0-30.0); Globulin 3.5 g/dL (1.3-3.2); Glucose 115 mg/dl (74-100); Lipase 52 U/L (23-300); Total Protein,Serum 8.1 g/dl (6.3-8.2)
--- NOTE | 2023-06-04 04:11 | HMH.EDGENADL ---
Discharge Plan Disposition Patient Disposition: Home, Self-Care Prescriptions Prescriptions: New ondansetron HCl 4 mg tablet 4 mg PO Q8H PRN (Reason: nausea and vomiting) 5 Days Qty: 30 0RF Referrals Follow up/Referrals: Karsten Draper MD [Primary Care Provider] - See instructions Activity Restrictions/Add. Instructions Additional Instructions/Restrictions: Please follow-up with your primary care provider. Please return to the emergency department if you develop any new or worsening symptoms or become concerned for your health. Clinical Impressions Clinical Impression: Abdominal pain Qualifiers: Abdominal location: generalized Qualified Code(s): R10.84 - Generalized abdominal pain Instructions Patient Instructions: DI for Acute Abdominal Pain Discharge ED Provider: Jose Holman Adult HPI General Chief complaint: Abdominal Pain Stated complaint: Stomach pain with vomiting Time Seen by Provider: 06/04/23 02:20 Mode of Arrival: Ambulatory Source of Information: Patient and Spouse Limitations: No Limitations Description of Symptoms (Recalled from ER Triage Doc. by RN): Patient reports diffuse abdominal pain that started approximately 9pm that is intermittent in intensity. Patient has had N/V/D. Patient reports he has had similar episodes approximately 1 year previous with extensive workup and no diagnoses, states that this feels similar. History of Present Illness HPI narrative: 28-year-old male presents with abdominal pain. Reports it is generalized in nature. He is unable to further localize it. He reports that it is associated with nausea vomiting and diarrhea. It began at approximately 9 PM. It was sudden in onset. He reports that he has had numerous episodes like this in the past, it happened much more frequently a few years ago. The episodes always start the same. He reports that he belches a weird taste, and then has onset of abdominal pain vomiting and sometimes has diarrhea. He reports she has been seen by his PCP as well as multiple specialist, has had scopes, scans, blood work, biopsies, without any elucidation of etiology. He reports that every time I come to the ER with the symptoms I get a CT scan and it is always negative . He denies any recent fever or illness. Denies any blood in the vomiting or stool. He reports that the pain will often stop on its own after many hours, but sometimes he cannot take it and he comes to the ER. He reports that morphine usually helps make the pain stop. Related Data Previous Rx's Medication Instructions Recorded ondansetron HCl 4 mg tablet 4 mg PO Q8H PRN nausea and 06/04/23 vomiting 5 days #30 tabs Allergies Allergy/AdvReac Type Severity Reaction Status Date / Time No Known Allergies Allergy Verified 04/16/23 15:55 [facility] Disclaimer: The information contained in this section may have been updated after the patient was seen, as this information can be updated by other users. 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 (Updated 06/04/23 @ 04:11 by Jose Holman MD) Abdominal pain Exposure to COVID-19 virus Head injury due to trauma No significant past medical history Patient left before triage assessment Post-concussional syndrome Sprain of right foot Strep throat Surgical History (Updated 04/16/23 @ 15:56 by Dieter Crowell) No significant past surgical history Family History (Updated 04/16/23 @ 15:56 by Dieter Crowell) Other No significant family history Social History (Updated 06/07/22 @ 09:38 by Kyle Galeano APRN) Smoking Status: Never smoker alcohol intake: never current occupational status: employed Travel in the last 8 weeks: None ROS Obtained: Yes All systems reviewed & no additional complaints except as documented Physical Exam General General appearance: alert, in no apparent distress and obese Head Head exam: atraumatic and normocephalic Eye Eye exam: Present normal appearance, PERRL and EOMI ENT EN
[2023-06-04 04:18] VITALS: BP 130/81; PULSE 80; RESP 15; TEMP 36.6; O2SAT 98
== END 2023-06-04 04:20 | disposition home or self-care (01) ==
PROVIDERS: Emergency Provider Emergency Medicine; PCP Family Medicine
DX: R10.9 Unspecified abdominal pain (principal); R11.2 Nausea with vomiting, unspecified; R19.7 Diarrhea, unspecified
CPT/HCPCS: 80053; 83690; 85025; 96361; 96374; 96375; 99285; J2405

== ENCOUNTER 2023-07-31 16:28 | Emergency (ER) | payer BC, SELFPAY ==
[2023-07-31 17:30] VITALS: BP 158/79; PULSE 95; RESP 18; TEMP 37.1; O2SAT 99; BMI 27.5
[2023-07-31 17:59] LABS: UTC Strep Screen (Rapid) Negative (Negative)
[2023-07-31 18:00] LABS: UTC Influenza A Antigen Negative (Negative); UTC Influenza B Antigen Negative (Negative)
--- NOTE | 2023-07-31 18:01 | EXP.UTC ---
Discharge Plan Disposition Patient Disposition: Home, Self-Care Condition: Good Prescriptions Prescriptions: New bytgysywrthlllu-ppqxdowje-FC [Bromfed DM] 2-30-10 mg/5 mL syrup 5 ml PO QID PRN (Reason: cold symptoms) 3 Days Qty: 118 0RF No Action ondansetron HCl 4 mg tablet 4 mg PO Q8H PRN (Reason: nausea and vomiting) 5 Days Qty: 30 0RF Referrals Follow up/Referrals: Karsten Draper MD [Primary Care Provider] - See instructions Activity Restrictions/Add. Instructions Additional Instructions/Restrictions: No sign of a bacterial infection. Likely viral. Viruses can take 7-14 days to run their course. Nasal saline and bulb syringe or nose Mariela to remove nasal drainage to help with nasal congestion. Hard to eat, drink, sleep with nasal congestion so important to keep this cleaned out. Monitor temp. Tylenol or Motrin as needed for pain or fever Encourage fluids, water, Gatorade, Powerade, Pedialyte if /toddler/child Warm salt water gargles Warm fluids Sore throat lozenges Sleep elevated Humidifier/vaporizer Follow-up immediately for new or worsening symptoms or no noticeable improvement over the next 48-72 hours. Clinical Impressions Clinical Impression: URI (upper respiratory infection) Qualifiers: URI type: unspecified viral URI Qualified Code(s): J06.9 - Acute upper respiratory infection, unspecified Instructions Patient Instructions: DI for Viral Upper Respiratory Infection -- Adult [facility]charge [facility] HPI General Stated complaint: vomiting, rafita Mode of Arrival: Ambulatory Source of Information: Patient Limitations: No Limitations Time Seen by Provider: 07/31/23 18:01 Description of Symptoms (Recalled from Triage Doc. by RN): congestion, vomiting, sore throat, and body aches HEENT Symptoms (Recalled from RN notes): Yes Resp Symptoms (Recalled from RN notes): No Skin Symptoms (Recalled from RN notes): No MS Symptoms (Recalled from RN notes): No Functional Status (Recalled from RN notes): n/a History of Present Illness Provider Complaint: 28 yr old male presents for congestion, vomiting, sore throat, and body aches for 2 days Related Data Previous Rx's Medication Instructions Recorded ondansetron HCl 4 mg tablet 4 mg PO Q8H PRN nausea and 06/04/23 vomiting 5 days #30 tabs xkztjpwhvoxyhju-dxzefkamlbrtwtz-EE 5 ml PO QID PRN cold symptoms 3 07/31/23 2 mg-30 mg-10 mg/5 mL oral syrup days #118 mL (Bromfed DM) Allergies Allergy/AdvReac Type Severity Reaction Status Date / Time No Known Allergies Allergy Verified 07/31/23 17:52 Worker's Comp Is this a Worker's Comp case?: No [facility] Disclaimer: The information contained in this section may have been updated after the patient was seen, as this information can be updated by other users. 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) Smoking Status: Never smoker alcohol intake: never current occupational status: employed Travel in the last 8 weeks: None ROS Obtained: Yes All systems reviewed & no additional complaints except as documented Constitutional Constitutional: Reports system reviewed and no additional complaints, except as documented, Reports as per HPI and Reports body ache Eyes Eyes: Reports system reviewed and no additional complaints, except as documented ENT Ears, Nose, Mouth, and Throat: Reports system reviewed and no additional complaints, except as documented, Reports as per HPI, Reports nasal congestion and Reports sore throat Cardiovascular Cardiovascular: Reports system reviewed and no additional complaints, except as documented Respiratory Respiratory: Reports system reviewed and no additional complaints, except as documented Gastrointestinal Gastrointestingal: Reports system reviewed and no additional complaints, except as documented, as per HPI and vomiting Musculoskeletal Musculoskeletal: Reports system reviewed and no additional complaints, except as documented Neurologic Neurologic: Reports system reviewed and no additional complaints, except as documented Endocrine Endocrine: Reports system reviewed and no additional complaints, except as documented Hematologic/Lymphatic Henatologic/Lymphatic: Reports system reviewed and no additional complaints, except as documented Allergic/Immunologic Allergic/Immunologic: Reports system reviewed and no additional complaints, except as documented Physical Exam General General appearance: alert and in no apparent distress Head Head exam: atraumatic Eye Eye exam: Present normal appearance and PERRL ENT ENT exam: Present normal exam, normal oropharynx, mucous membranes moist and TM's normal bilaterally Respiratory Respiratory exam: Present normal lung sounds bilaterally Cardiovascular Cardiovascular exam: Present regular rate and normal rhythm Neurological Exam Neurological exam: Present alert and oriented X3 Skin Skin exam: Present warm Medical Decision Making Medical Records Medical records reviewed: Yes I reviewed the patient's medical records. Reginald Inquiry Pt receiving controlled substance: No Reginald was queried for this patient: No Vital Signs: 07/31/23 17:30 Temperature 98.8 F Temperature Source Oral Pulse Rate [Right Radial] 95 H Respiratory Rate 18 Blood Pressure [Right Arm] 158/79 H Blood Pressure Mean [Right Arm] 105 Blood Pressure Source [Right Arm] Automatic Cuff Blood Pressure Position [Right Arm] Sitting 02 Sat by Pulse Oximetry 99 Oxygen Delivery Method Room Air Lab Data Lab results reviewed: Yes I reviewed the patient's lab results. Lab Results 07/31/23 17:42: Influenza Type A Ag Negative, Influenza Type B Ag Negative, Strep Scn Rapid Clinic Negative Orders (Tests/Meds): ORDERS Category Date Time Status Strep Screen Confirmation Stat Micro 07/31/23 17:42 Received
[2023-07-31 18:10] VITALS: BP 158/79; PULSE 95; RESP 18; TEMP 37.1; O2SAT 99
[2023-07-31 18:17] LABS: Adenovirus,PCR Not Detected (NotDetected); Coronavirus 19, PCR Not Detected (NotDetected); Coronavirus 229E Not Detected (NotDetected); Coronavirus NL63 Not Detected (NotDetected); Coronavirus OC43 Not Detected (NotDetected); Coronovirus HKU1,PCR Not Detected (NotDetected); Human Metapneumovirus Not Detected (NotDetected); Influenza A, PCR Not Detected (NotDetected); Influenza AH1, 2009 Not Detected (NotDetected); Influenza AH1, PCR Not Detected (NotDetected); Influenza AH3,PCR Not Detected (NotDetected); Influenza B, PCR Not Detected (NotDetected); Parainfluenza 2, PCR Not Detected (NotDetected); Parainfluenza 3, PCR Not Detected (NotDetected); Parainfluenza 4, PCR Not Detected (NotDetected); Rhinovirus/Enterovirus Not Detected (NotDetected)
[2023-08-01 03:48] LABS: Parainfluenza 1, PCR Detected (NotDetected); Respiratory Syncytial Virus Detected (NotDetected)
== END 2023-07-31 18:10 | disposition home or self-care (01) ==
PROVIDERS: Emergency Provider Nurse Practitioner Family; PCP Family Medicine
DX: R11.2 Nausea with vomiting, unspecified (principal); B97.4 Respiratory syncytial virus as the cause of diseases classified elsewhere; R09.81 Nasal congestion; R07.0 Pain in throat; M79.18 Myalgia, other site
CPT/HCPCS: 87581; 87632; 87635; 87798; 87804; 87880; 99212; 99214; G0463

== ENCOUNTER 2024-01-09 16:31 | Emergency (ER) | payer BC, SELFPAY ==
[2024-01-09 16:40] VITALS: BP 156/94; PULSE 120; RESP 21; TEMP 37.6; O2SAT 97; BMI 42.3
[2024-01-09 16:50] LABS: UTC Strep Screen (Rapid) Positive (Negative)
--- NOTE | 2024-01-09 16:50 | EXP.UTC ---
Discharge Plan Disposition Patient Disposition: Home, Self-Care Condition: Good Prescriptions Prescriptions: New azithromycin 500 mg tablet 500 mg PO DAILY 5 Days Qty: 5 0RF No Action pantoprazole 40 mg tablet,delayed release (DR/EC) 40 mg PO DAILY irbesartan 150 mg tablet 150 mg PO DAILY duloxetine 60 mg capsule,delayed release(DR/EC) 60 mg PO DAILY Referrals Follow up/Referrals: Karsten Draper MD [Primary Care Provider] - See instructions Clinical Impressions Clinical Impression: Acute streptococcal pharyngitis Instructions Patient Instructions: DI for Strep Throat Discharge ED Provider: Quyen Valdes [facility] [place] General Stated complaint: Sore throat,Fever Mode of Arrival: Ambulatory Source of Information: Patient Limitations: No Limitations Time Seen by Provider: 01/09/24 16:45 Description of Symptoms (Recalled from Triage Doc. by RN): PATIENT C/O SORE THROAT, FEVER AND BODY ACHES THAT STARTED YESTERDAY HEENT Symptoms (Recalled from RN notes): Yes Resp Symptoms (Recalled from RN notes): No Skin Symptoms (Recalled from RN notes): No MS Symptoms (Recalled from RN notes): No Functional Status (Recalled from RN notes): WNL History of Present Illness Provider Complaint: Pt reports that he started with a sore throat yesterday that became worse today. He states that he now has body aches and fever. He states that he took Tylenol about 2 hours ago. Related Data Home Medications Medication Instructions Recorded Confirmed duloxetine 60 mg capsule,delayed 60 mg PO DAILY 01/09/24 01/09/24 release irbesartan 150 mg tablet 150 mg PO DAILY 01/09/24 01/09/24 pantoprazole 40 mg tablet,delayed 40 mg PO DAILY 01/09/24 01/09/24 release Previous Rx's Medication Instructions Recorded azithromycin 500 mg tablet 500 mg PO DAILY 5 days #5 tabs 01/09/24 Allergies Allergy/AdvReac Type Severity Reaction Status Date / Time No Known Allergies Allergy Verified 07/31/23 17:52 Worker's Comp Is this a Worker's Comp case?: No [facility] Disclaimer: The information contained in this section may have been updated after the patient was seen, as this information can be updated by other users. 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 (Updated 01/09/24 @ 16:56 by Quyen Valdes APRN) GERD (gastroesophageal reflux disease) Hypertension Depression Anxiety Post-concussional syndrome Head injury due to trauma Strep throat Patient left before triage assessment Abdominal pain Sprain of right foot Exposure to COVID-19 virus Surgical History No significant past surgical history Family History , DRAMATIC DIRECTOR) No significant family history Social History , DRAMATIC DIRECTOR) Smoking Status: Never smoker alcohol intake: never current occupational status: employed Travel in the last 8 weeks: None ROS Obtained: Yes All systems reviewed & no additional complaints except as documented Constitutional Constitutional: Reports system reviewed and no additional complaints, except as documented, Reports fever(s) and Reports malaise Eyes Eyes: Reports system reviewed and no additional complaints, except as documented ENT Ears, Nose, Mouth, and Throat: Reports system reviewed and no additional complaints, except as documented and Reports sore throat Cardiovascular Cardiovascular: Reports system reviewed and no additional complaints, except as documented Respiratory Respiratory: Reports system reviewed and no additional complaints, except as documented Gastrointestinal Gastrointestingal: Reports system reviewed and no additional complaints, except as documented Genitourinary Male Genitourinary: Reports system reviewed and no additional complaints, except as documented Musculoskeletal Musculoskeletal: Reports system reviewed and no additional complaints, except as documented Integumentary/Breasts Skin/Breast: Reports system reviewed and no additional complaints, except as documented Neurologic Neurologic: Reports system reviewed and no additional complaints, except as documented Endocrine Endocrine: Reports system reviewed and no additional complaints, except as documented Hematologic/Lymphatic Henatologic/Lymphatic: Reports system reviewed and no additional complaints, except as documented Allergic/Immunologic Allergic/Immunologic: Reports system reviewed and no additional complaints, except as documented Physical Exam General General appearance: alert Comment: ill appearing Head Head exam: atraumatic and normocephalic Eye Eye exam: Present normal appearance Expanded ENT Exam External ear exam: Present normal external inspection Nasal speculum exam: Bilateral: normal Mouth exam: Present normal external inspection Teeth exam: Present normal inspection Throat exam: Present tonsillar erythema, tonsillomegaly and tonsillar exudate Comment: Tonsils 3+ Neck Neck exam: Present lymphadenopathy Chest Chest inspection: Present normal inspection and symmetric chest wall rise Respiratory Respiratory exam: Present normal lung sounds bilaterally Cardiovascular Cardiovascular exam: Present tachycardia and normal heart sounds Abdominal Exam Abdominal exam: Present soft and normal bowel sounds Extremities Exam Extremities exam: Present normal inspection Back Exam Back exam: Present normal inspection Neurological Exam Neurological exam: Present alert and oriented X3 Psychiatric Psychiatric exam: Present normal affect and normal mood Skin Skin exam: Present warm, dry and intact Lymphatic Lymphatic Findings: no adenopathy Medical Decision Making Reginald Inquiry Pt receiving controlled substance: No Reginald was queried for this patient: No Vital Signs: 01/09/24 16:40 Temperature 99.6 F Temperature Source Oral Pulse Rate [Left Brachial] 120 H Respiratory Rate 21 Blood Pressure [Left Arm] 156/94 H Blood Pressure Mean [Left Arm] 114 Blood Pressure Source [Left Arm] Automatic Cuff Blood Pressure Position [Left Arm] Sitting 02 Sat by Pulse Oximetry 97 Oxygen Delivery Method Room Air Lab Data Lab results reviewed: Yes I reviewed the patient's lab results.
[2024-01-09 16:57] VITALS: BP 156/94; PULSE 120; RESP 21; TEMP 37.6; O2SAT 97
== END 2024-01-09 17:00 | disposition home or self-care (01) ==
PROVIDERS: Emergency Provider Nurse Practitioner Family; PCP Family Medicine
DX: J02.0 Streptococcal pharyngitis (principal); R07.0 Pain in throat; R50.9 Fever, unspecified
CPT/HCPCS: 87880; 99212; 99214; G0463

== ENCOUNTER 2024-03-02 12:32 | Outpatient (CLI) | payer BC, SELFPAY ==
[2024-03-03 08:54] LABS: Estradiol 21.6 pg/mL (7.6-42.6); FSH 2.8 mIU/mL (1.5-12.4); LH 3.8 mIU/mL (1.7-8.6); Testosterone,Total 181 ng/dL (264-916)
[2024-03-18 15:28] LABS: Dihydrotestosterone DHT 7.7
== END 2024-03-02 23:59 | disposition home or self-care (01) ==
LOC: LAB 12:32
PROVIDERS: PCP Family Medicine; Visit Provider Urology
DX: R68.82 Decreased libido (principal); R53.83 Other fatigue
CPT/HCPCS: 36415; 82626; 82670; 83001; 83002; 84146; 84270; 84403

== ENCOUNTER 2024-03-11 13:55 | Emergency (ER) | payer BC, SELFPAY ==
[2024-03-11 14:00] VITALS: BP 162/79; PULSE 128; RESP 23; TEMP 37.5; O2SAT 98; BMI 42.3
--- NOTE | 2024-03-11 14:06 | EXP.UTC ---
Discharge Plan Disposition Patient Disposition: Home, Self-Care Condition: Good Prescriptions Prescriptions: New amoxicillin 875 mg tablet 875 mg PO Q12H Qty: 20 0RF [id number]-[id number] [Bromfed DM] 2-30-10 mg/5 mL Syrup 5 ml PO Q6H PRN (Reason: Cough) Qty: 240 0RF ondansetron 4 mg Tablet,Disintegrating 4 mg PO Q8H PRN (Reason: Nausea) Qty: 12 0RF No Action pantoprazole 40 mg tablet,delayed release (DR/EC) 40 mg PO DAILY irbesartan 150 mg tablet 150 mg PO DAILY duloxetine 60 mg capsule,delayed release(DR/EC) 60 mg PO DAILY Referrals Follow up/Referrals: Karsten Draper MD [Primary Care Provider] - See instructions Activity Restrictions/Add. Instructions Additional Instructions/Restrictions: Drink plenty of fluids. Take tylenol or ibuprofen for pain or fever. Take the medications as directed. Follow up with your regular doctor. GO TO THE ER FOR ANY WORSENING SYMPTOMS Clinical Impressions Clinical Impression: Sinusitis, Acute viral syndrome Stand Alone Forms Stand Alone Forms: Work/School Release Instructions Patient Instructions: Sinusitis, DI for Sinusitis Print Language Print Language: [place] Discharge ED Provider: Kyle Galeano [facility] General Stated complaint: fever, diarrhea, congestion Time Seen by Provider: 03/11/24 14:06 Related Data Home Medications ?Medication ?Instructions ?Recorded ?Confirmed duloxetine 60 mg capsule,delayed 60 mg PO DAILY 01/09/24 03/11/24 release irbesartan 150 mg tablet 150 mg PO DAILY 01/09/24 03/11/24 pantoprazole 40 mg tablet,delayed 40 mg PO DAILY 01/09/24 03/11/24 release Previous Rx's ?Medication ?Instructions ?Recorded amoxicillin 875 mg tablet 875 mg PO Q12H #20 tabs 03/11/24 rejfibikybhepmd-dzgqldwfwaopnav-WV 5 ml PO Q6H PRN Cough #240 mL 03/11/24 2 mg-30 mg-10 mg/5 mL oral syrup (Bromfed DM) ondansetron 4 mg disintegrating 4 mg PO Q8H PRN Nausea #12 tabs 03/11/24 tablet Allergies Allergy/AdvReac Type Severity Reaction Status Date / Time No Known Allergies Allergy Verified 03/02/24 11:34 [facility] Disclaimer: The information contained in this section may have been updated after the patient was seen, as this information can be updated by other users. 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 GERD (gastroesophageal reflux disease) Hypertension Depression Anxiety Post-concussional syndrome Head injury due to trauma Strep throat Patient left before triage assessment Abdominal pain Sprain of right foot Exposure to COVID-19 virus Surgical History No significant past surgical history Family History Other No significant family history Social History Smoking Status: Never smoker alcohol intake: never current occupational status: employed Travel in the last 8 weeks: None ROS Obtained: Yes All systems reviewed & no additional complaints except as documented Constitutional Constitutional: Reports chills and Reports fever(s) Eyes Eyes: Denies eye discharge ENT Ears, Nose, Mouth, and Throat: Reports as per HPI Cardiovascular Cardiovascular: Denies chest pain Respiratory Respiratory: Denies chest congestion and Reports cough Gastrointestinal Gastrointestingal: Reports nausea; Denies abdominal pain, constipation, cramping, diarrhea or vomiting Musculoskeletal Musculoskeletal: Denies arthralgias Integumentary/Breasts Skin/Breast: Denies rash Neurologic Neurologic: Denies paresthesias Physical Exam General General appearance: alert and in no apparent distress Head Head exam: atraumatic, normocephalic and normal inspection Eye Eye exam: Present normal appearance, PERRL and EOMI ENT ENT exam: Present mucous membranes moist and normal external ear exam Expanded ENT Exam TM/Canal exam: Bilateral TM: erythema and bulging Nose exam: Absent sinus tenderness Mouth exam: Present normal external inspection; Absent drooling Teeth exam: Present normal inspection Throat exam: Present tonsillar erythema, tonsillomegaly and tonsillar exudate Neck Neck exam: Present normal inspection, full ROM and trachea midline; Absent tenderness, meningismus or lymphadenopathy Chest Chest inspection: Present normal inspection and symmetric chest wall rise; Absent tenderness Respiratory Respiratory exam: Present normal lung sounds bilaterally; Absent respiratory distress, wheezes, stridor or accessory muscle use Cardiovascular Cardiovascular exam: Present regular rate and normal rhythm; Absent systolic murmur or diastolic murmur Abdominal Exam Abdominal exam: Present soft and normal bowel sounds; Absent distention, tenderness, guarding, rebound or rigidity Extremities Exam Extremities exam: Present normal inspection and normal capillary refill; Absent calf tenderness Back Exam Back exam: Present normal inspection and full ROM; Absent tenderness, CVA tenderness (R) or CVA tenderness (L) Neurological Exam Neurological exam: Present alert, oriented X3 and CN II-XII intact Psychiatric Psychiatric exam: Present normal affect and normal mood Skin Skin exam: Present warm, dry, intact and normal color Medical Decision Making Medical Records Medical records reviewed: No I reviewed the patient's medical records. Reginald Inquiry Pt receiving controlled substance: No Lab Data Lab results reviewed: Yes I reviewed the patient's lab results.
[2024-03-11 14:21] LABS: UTC Influenza A Antigen Negative (Negative)
[2024-03-11 14:22] LABS: UTC Influenza B Antigen Negative (Negative)
[2024-03-11 14:59] VITALS: BP 162/79; PULSE 128; RESP 23; TEMP 37.5
== END 2024-03-11 15:01 | disposition home or self-care (01) ==
PROVIDERS: Emergency Provider Nurse Practitioner Family; PCP Family Medicine
DX: J01.90 Acute sinusitis, unspecified (principal); R50.9 Fever, unspecified; B34.9 Viral infection, unspecified
CPT/HCPCS: 87635; 87804; 99212; 99214; G0463

== ENCOUNTER 2024-04-13 09:07 | Outpatient (CLI) | payer BC, SELFPAY ==
[2024-04-13 09:35] LABS: Basophils # 0.1 K/mm3 (0-0.2); Basophils % 0.9 % (0.1-2.0); Eosinophils # 0.1 K/mm3 (0.0-0.4); Eosinophils % 1.2 % (0.1-12.0); Hematocrit 46.3 % (42.0-52.0); Hemoglobin 14.4 g/dL (14.1-18.0); Lymphocytes # 3.6 K/mm3 (0.7-4.5); Lymphocytes % 29.9 % (10-50); Mean Corpuscular Hemoglobin 26.1 pg (27.0-31.2); Mean Corpuscular Volume 84.3 fl (80-94); Mean Platelet Volume 7.4 fl (7.4-10.4); Monocytes # 0.6 K/mm3 (0.1-1.0); Monocytes % 5.2 % (1.7-9.3); Neutrophils # 7.5 K/mm3 (1.8-7.8); Neutrophils % 62.7 % (37.0-80.0); Platelet Count 423 K/mm3 (142-424); Red Blood Count 5.49 M/mm3 (4.60-6.20); Red Cell Distribution Width 14.3 % (11.5-17.5)
[2024-04-14 08:35] LABS: Sex Hormone Binding Globulin 17.3 nmol/L (16.5-55.9); Testosterone,Total 509 ng/dL (264-916)
== END 2024-04-13 23:59 | disposition home or self-care (01) ==
LOC: LAB 09:09
PROVIDERS: PCP Family Medicine; Visit Provider Urology
DX: R79.89 Other specified abnormal findings of blood chemistry (principal); N39.0 Urinary tract infection, site not specified
CPT/HCPCS: 36415; 84270; 84403; 85025

== ENCOUNTER 2024-05-06 09:41 | Emergency (ER) | payer BC, SELFPAY ==
[2024-05-06 09:42] VITALS: BP 151/100; PULSE 100; RESP 20; TEMP 36.6; O2SAT 96; BMI 42.5
--- NOTE | 2024-05-06 09:59 | HMH.EDGENADL ---
Discharge Plan Disposition Patient Disposition: Home, Self-Care Prescriptions Prescriptions: New ondansetron 4 mg tablet,disintegrating 4 mg PO Q8H PRN (Reason: nausea and vomiting) 4 Days Qty: 12 0RF No Action clomiphene citrate [Clomid] 50 mg tablet 50 mg PO .COMPLEX 30 Days Qty: 30 3RF Rx Instructions: 50 mg orally; Take one every other day. pantoprazole 40 mg tablet,delayed release (DR/EC) 40 mg PO DAILY irbesartan 150 mg tablet 150 mg PO DAILY duloxetine 60 mg capsule,delayed release(DR/EC) 60 mg PO DAILY Referrals Follow up/Referrals: Karsten Draper MD [Primary Care Provider] - See instructions Clinical Impressions Clinical Impression: Gastroenteritis, Abdominal pain, Nausea vomiting and diarrhea, Enteritis Stand Alone Forms Stand Alone Forms: Work/School Release Instructions Patient Instructions: DI for Acute Abdominal Pain Print Language Print Language: Albanian Discharge ED Provider: Neo Ortega General Adult HPI General Chief complaint: Abdominal Pain Stated complaint: severe stomach pain, nausea, diarrhea, vomiting Time Seen by Provider: 05/06/24 09:59 Mode of Arrival: Ambulatory Source of Information: Patient Limitations: No Limitations Description of Symptoms (Recalled from ER Triage Doc. by RN): pt woke up with central abd pain that is achy in nature, pt has had n/v/d this morning, pt states it starte at 0600 got better at 0730 but then got worse again at 0800 History of Present Illness HPI narrative: Neo Lopez is a 29y male with past medical history significant for recurrent nausea, vomiting and diarrhea and abdominal pain, GERD, obesity presents to the emergency department for complaints of abdominal pain, nausea, vomiting and diarrhea that occurred suddenly at 0600 this morning. Patient said he woke up and then began to have severe mid abdominal pain as well as 1 episode of nonbloody nonbilious vomiting after this. He does report that he has had nonbloody diarrhea since his pain started. He has not taken any medications for it. He notes that he has had episodes like this intermittently over the past 10 years, most recently 1 year ago. He reports that he is followed by gastroenterology and had upper and lower scopes done and was put on a PPI but was told that everything else looked okay. He denies any known history of IBS or Crohn's disease. He denies any chest pain or fevers. He states that morphine typically helps his pain with these episodes in the past. Related Data Home Medications ?Medication ?Instructions ?Recorded ?Confirmed duloxetine 60 mg capsule,delayed 60 mg PO DAILY 01/09/24 04/13/24 release irbesartan 150 mg tablet 150 mg PO DAILY 01/09/24 04/13/24 pantoprazole 40 mg tablet,delayed 40 mg PO DAILY 01/09/24 04/13/24 release Previous Rx's ?Medication ?Instructions ?Recorded clomiphene citrate 50 mg tablet 50 mg PO .COMPLEX 30 days #30 tabs 04/13/24 (Clomid) ondansetron 4 mg disintegrating 4 mg PO Q8H PRN nausea and 05/06/24 tablet vomiting 4 days #12 tabs Allergies Allergy/AdvReac Type Severity Reaction Status Date / Time No Known Allergies Allergy Verified 04/13/24 08:49 [facility] Disclaimer: The information contained in this section may have been updated after the patient was seen, as this information can be updated by other users. 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 GERD (gastroesophageal reflux disease) Hypertension Depression Anxiety Post-concussional syndrome Head injury due to trauma Strep throat Patient left before triage assessment Abdominal pain Sprain of right foot Exposure to COVID-19 virus Surgical History No significant past surgical history Family History Other No significant family history Social History Smoking Status: Never smoker alcohol intake: never current occupational status: employed Travel in the last 8 weeks: None Other 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 Have you received the Flu Vaccine for this season: No Have you received the Pneumonia Vaccine: No ROS Obtained: Yes Systems reviewed as appropriate & no additional complaints except as documented Physical Exam General General appearance: alert and obese Comment: Appears uncomfortable, diaphoretic Head Head exam: atraumatic Eye Eye exam: Present normal appearance ENT ENT exam: Present normal external ear exam Neck Neck exam: Present full ROM Chest Chest inspection: Present symmetric chest wall rise Respiratory Respiratory exam: Present normal lung sounds bilaterally; Absent respiratory distress, wheezes or stridor Cardiovascular Cardiovascular exam: Present regular rate and normal rhythm Abdominal Exam Abdominal exam: Present soft and tenderness; Absent distention or guarding Abdominal tenderness: Present epigastrium and diffuse exam: Present deferred Extremities Exam Extremities exam: Present normal inspection Back Exam Back exam: Present normal inspection Neurological Exam Neurological exam: Present alert and oriented X3 Psychiatric Psychiatric exam: Present normal affect Skin Skin exam: Present warm, dry and diaphoresis Medical Decision Making Medical Records Medical records reviewed: Yes I reviewed the patient's medical records. Screening: Per USPSTF and CDC recommendations, given the prevalence of disease in our region, it is our hospital?s policy to screen for HIV and viral Hepatitis for all patients aged 18 and over and those with ongoing risk factors. Reginald Inquiry Pt receiving controlled substance: No Vital Signs: 05/06/24 09:42 05/06/24 10:16 Temperature 97.9 F Temperature Source Oral Pulse Rate 111 H Pulse Rate [Right Radial] 100 H Respiratory Rate 20 Blood Pressure 171/110 H Blood Pressure [Right Arm] 151/100 H Blood Pressure Mean 128 Blood Pressure Mean [Right Arm] 117 02 Sat by Pulse Oximetry 96 99 Oxygen Delivery Method Room Air Room Air Lab Data Lab Results 05/06/24 09:47: Urine Color Yellow, Urine Appearance Clear, Urine pH 6.0, Ur Specific Gallion >= 1.030, Urine Protein Negative, Urine Glucose (UA) Negative, Urine Ketones Negative, Urine Blood Negative, Urine Nitrate Negative, Urine Bilirubin Negative, Urine Urobilinogen 0.2, Ur Leukocyte Esterase Negative, Urine RBC None, Urine WBC None, Ur Squamous Epith Cells None, Urine Bacteria None 05/06/24 10:00: WBC 8.7, RBC 5.92, Hgb 16.0, Hct 47.8, MCV 80.8, MCH 27.0, MCHC 33.5, RDW 14.2, Plt Count 374, MPV 6.7 L, Neut % (Auto) 66.4, Lymph % (Auto) 25.3, Mcdonough % (Auto) 5.8, Eos % (Auto) 1.5, Baso % (Auto) 1.0, Neut # (Auto) 5.8, Lymph # (Auto) 2.2, Mcdonough # (Auto) 0.5, Eos # (Auto) 0.1, Baso # (Auto) 0.1, Sodium 138, Potassium 4.0, Chloride 104, Carbon Dioxide 24, Anion Gap 14.0, BUN 12, Creatinine 0.70, Estimated Creat Clear 189, Estimated GFR 135, Est GFR ( Amer) 164, Glucose 118 H, Calcium 9.3, Total Bilirubin 0.8, AST 42, ALT 43, Alkaline Phosphatase 78, Total Protein 7.7, Albumin 4.3, Globulin 3.4 H, Albumin/Globulin Ratio 1.3, Lipase 59 05/06/24 10:00 05/06/24 10:00 Orders (Tests/Meds): ED MEDICATIONS Discontinued Medications Generic Name Dose Route Start Last Admin Trade Name Freq PRN Reason Stop Dose Admin Dicyclomine HCl 20 mg 05/06/24 10:24 05/06/24 10:26 Dicyclomine 10mg Capsule PO 05/06/24 10:25 20 mg ONCE ONE Administration Iopamidol 75 ml 05/06/24 10:37 05/06/24 10:40 Iopamidol-370 (76%);100ml Bottle IV 05/06/24 10:38 75 ml ONCE ONE Administration Morphine Sulfate 4 mg 05/06/24 10:06 05/06/24 10:12 Morphine 4mg/Ml Syringe IV 05/06/24 10:07 4 mg ONCE ONE Administration Ondansetron HCl 4 mg 05/06/24 10:06 05/06/24 10:12 Ondansetron 4mg/2ml Vial IV 05/06/24 10:07 4 mg ONCE ONE Administration Sodium Chloride 10 ml 05/06/24 10:37 05/06/24 10:40 Sodium Chloride 0.9% 10ml Syr (Rad Only) IV 05/06/24 10:38 10 ml ONCE ONE Administration ORDERS Category Date Time Status CT abdomen pelvis w con Stat Cat Scan 05/06/24 10:06 Completed CBC w/Auto Diff [Complete Blood Count Auto Diff] Stat Lab 05/06/24 10:00 Completed CMP [Comprehensive Metabolic Panel] Stat Lab 05/06/24 10:00 Completed HIV (1&2) Antibody Rapid Stat Lab 05/06/24 10:00 Received Hep C Ab with Reflex to RNA Stat Lab 05/06/24 10:00 Received Lipase Stat Lab 05/06/24 10:00 Completed Urinalysis and Microscopic Stat Lab 05/06/24 09:47 Completed Medical Decision Narrative: Justin Lopez is a 29-year-old male with a history of hypertension, depression, anxiety, GERD, recurrent abdominal pain/nausea/vomiting/diarrhea presenting to the emergency department for acute onset abdominal pain, nausea, vomiting and diarrhea at 0600 this morning. Patient reports that this episode feels similar to previous episodes in the past. On arrival, patient is tachycardic with heart rate of 111, hypertensive with blood pressure 171/110, breathing comfortably on room air with oxygen saturation at 99%. Afebrile. Physical exam, stated above, revealed an obese male who appears uncomfortable and is mildly diaphoretic. He has diffuse abdominal tenderness more focal in the epigastric region. He denies any history of abdominal surgeries. Differential diagnosis includes: Crohn's disease, acute cholecystitis, pancreatitis, small bowel obstruction, GERD, viral gastroenteritis, appendicitis, peptic ulcer disease, among others. Patient was initially treated with 4 mg of IV Zofran as well as 4 mg of IV morphine for pain, however his pain worsened and he was given 20 mg p.o. Bentyl after this for spasms. Patient's workup included: CBC with differential, CMP, lipase, urinalysis, CT abdomen pelvis with IV contrast Patient's workup in the emergency department normal white blood cell count, no anemia, electrolytes within normal limits, no LANETTE, liver enzymes within normal limits, lipase normal at 59, urine without evidence of infection or blood. CT abdomen pelvis with IV contrast was interpreted by me personally. There is multiple fluid-filled bowel loops could represent enteritis. Radiology report concurs that these findings are worrisome for enteritis. Given the patient's nausea, nonbloody vomiting and diarrhea in the setting of abdominal pain that began this morning, it is likely that this is viral in nature and will improve over time with symptomatic treatment. Patient was encouraged to continue hydrating well by drinking plenty of fluids and is being sent with a prescription for Zofran to help with nausea and vomiting. He was instructed to take Tylenol and ibuprofen to help with symptomatic relief. He was also instructed to follow-up with his primary care physician and set up mold technician as he may need workup for H. pylori. Return precautions were given, then included over 10 episodes of diarrhea in a 24-hour period, bloody diarrhea, fever. All questions were answered. He demonstrated understanding and was in agreement this plan and on reassessment, he had some improvement of his symptoms. Given this, is felt that he is appropriate for discharge at this time and patient was subsequently discharged from the emergency department in stable condition. Critical Care Critical Care Time Critical Care Time: No
--- NOTE | 2024-05-06 10:06 | CT_ITS ---
FINAL REPORT CLINICAL HISTORY: Abdominal pain, epigastric, N/V/D COMPARISON: 05/09/2021 FINDINGS: CT OF THE ABDOMEN AND PELVIS WITH CONTRAST Axial CT images of the abdomen and pelvis were obtained after the administration of oral and iv contrast. Coronal reformatted images were also obtained and reviewed.This study was performed with techniques to keep radiation doses as low as reasonably achievable (ALARA). Individualized dose reduction techniques using automated exposure control or adjustment of mA and/or kV according to the patient's size were employed. Abdomen: The lung bases are clear. The heart is normal in size. There is mild fatty and felt patient of the liver. The spleen is unremarkable. No adrenal mass is present. The pancreas has an unremarkable appearance. The kidneys are normal, without evidence of mass or hydronephrosis. The aorta is normal in caliber. There are multiple fluid-filled bowel loops which are nonspecific and worrisome for enteritis. Multiple mildly enlarged mesenteric lymph nodes are seen and were present on the prior exam. These are favored to be reactive. No mass or abnormal fluid collection is seen. Pelvis: The appendix normal. The urinary bladder is unremarkable. No inflammatory process is seen. There is no evidence of mass or adenopathy. There is no evidence of bowel obstruction. IMPRESSION: Findings worrisome for enteritis. Reviewed, Interpreted and Dictated by Aubrey Sprague III, MD Transcribed by Mildred Curry Authenticated and [facility]
[2024-05-06] MEDS: MORPHINE 4MG/ML SYRINGE 4 MG IV (10:12)
[2024-05-06] MEDS: ONDANSETRON 4MG/2ML VIAL 4 MG IV (10:12)
[2024-05-06 10:13] LABS: Microscopic, Urine URINE MICROSCOPIC (MICROSCOPIC)
[2024-05-06 10:15] LABS: Basophils # 0.1 K/mm3 (0-0.2); Eosinophils # 0.1 K/mm3 (0.0-0.4); Eosinophils % 1.5 % (0.1-12.0); Hematocrit 47.8 % (42.0-52.0); Lymphocytes # 2.2 K/mm3 (0.7-4.5); Lymphocytes % 25.3 % (10-50); Mean Corpuscular HGB Conc 33.5 g/dL (31.8-35.4); Mean Corpuscular Volume 80.8 fl (80-94); Mean Platelet Volume 6.7 fl (7.4-10.4); Monocytes # 0.5 K/mm3 (0.1-1.0); Monocytes % 5.8 % (1.7-9.3); Neutrophils # 5.8 K/mm3 (1.8-7.8); Neutrophils % 66.4 % (37.0-80.0); Platelet Count 374 K/mm3 (142-424); Red Blood Count 5.92 M/mm3 (4.60-6.20); Red Cell Distribution Width 14.2 % (11.5-17.5); White Blood Count 8.7 K/mm3 (4.8-10.8)
[2024-05-06 10:16] VITALS: BP 171/110; PULSE 111; O2SAT 99
[2024-05-06 10:17] LABS: Albumin Level 4.3 g/dl (3.5-5.0); Chloride 104 mmol/L (98-107); Sodium 138 mmol/L (136-145)
[2024-05-06 10:20] LABS: Alanine Aminotransferase 43 U/L (12-78); Albumin/Globulin Ratio 1.3 (1.1-1.8); Alkaline Phosphatase 78 U/L (38-126); Aspartate Amino Transferase 42 U/L (17-59); Bilirubin,Total 0.8 mg/dl (0.2-1.3); Blood Urea Nitrogen 12 mg/dl (9-20); Calcium 9.3 mg/dl (8.4-10.2); Carbon Dioxide 24 mmol/L (22.0-30.0); Creatinine Clearance Estimated 189 mL/min (50-200); Estimated Glomerular Filt Rate 135 ml/min (>60); GFR (African American) 164 ML/MIN (>60); Globulin 3.4 g/dL (1.3-3.2); Glucose 118 mg/dl (74-100); Lipase 59 U/L (23-300); Total Protein,Serum 7.7 g/dl (6.3-8.2)
[2024-05-06 10:22] LABS: Appearance,Urine CLEAR (Clear); Bilirubin,Urine Negative (Negative); Blood, Urine Negative (Negative); Color,Urine YELLOW (Yellow); Glucose,Urine (UA) Negative (Negative); Ketones,Urine Negative (Negative); Leukocyte Esterase,Urine Negative (Negative); Nitrate,Urine Negative (Negative); Protein,Urine Negative (Negative); Specific Gravity, Urine >= 1.030 (1.005-1.030); Urobilinogen,Urine 0.2 EU/dl (0.2)
[2024-05-06] MEDS: DICYCLOMINE 10MG CAPSULE 20 MG PO (10:26)
--- NOTE | 2024-05-06 10:31 | PC.NURSE ---
patient gone to CT at this time.
[2024-05-06] MEDS: IOPAMIDOL-370 (76%);100ML BOTTLE 75 ML IV (10:40)
[2024-05-06] MEDS: SODIUM CHLORIDE 0.9% 10ML SYR (RAD ONLY) 10 ML IV (10:40)
--- NOTE | 2024-05-06 10:43 | PC.NURSE ---
Patient is back in the room from CT at this time.
[2024-05-06 11:56] VITALS: BP 130/72; PULSE 98; RESP 20; TEMP 36.7; O2SAT 95
[2024-05-06 14:41] LABS: HIV (1&2) Antibody Rapid NONREACTIVE (NONREACTIVE)
[2024-05-07 05:14] LABS: HCV Ab Non Reactive (Non Reactive)
== END 2024-05-06 11:57 | disposition home or self-care (01) ==
PROVIDERS: Emergency Provider Student in an Organized Health Care Education/Training Program; PCP Family Medicine
DX: K52.9 Noninfective gastroenteritis and colitis, unspecified (principal); R10.9 Unspecified abdominal pain; R11.2 Nausea with vomiting, unspecified
CPT/HCPCS: 74177; 80053; 81001; 83690; 85025; 86803; 87389; 96374; 96375; 99285; J2270; J2405; Q9967

== ENCOUNTER 2024-05-07 06:03 | Emergency (ER) | payer BC, SELFPAY ==
[2024-05-07 06:12] VITALS: BP 155/94; PULSE 115; RESP 16; TEMP 36.9; O2SAT 98; BMI 42.5
--- NOTE | 2024-05-07 06:15 | ED_ITS ---
Discharge Plan Disposition Patient Disposition: Home, Self-Care Chief Complaint: Abdominal Pain Prescriptions Prescriptions: No Action clomiphene citrate [Clomid] 50 mg tablet 50 mg PO .COMPLEX 30 Days Qty: 30 3RF Rx Instructions: 50 mg orally; Take one every other day. pantoprazole 40 mg tablet,delayed release (DR/EC) 40 mg PO DAILY irbesartan 150 mg tablet 150 mg PO DAILY duloxetine 60 mg capsule,delayed release(DR/EC) 60 mg PO DAILY ondansetron 4 mg tablet,disintegrating 4 mg PO Q8H PRN (Reason: nausea and vomiting) 4 Days Qty: 12 0RF Referrals Follow up/Referrals: Karsten Draper MD [Primary Care Provider] - See instructions Aroldo Dawkins II, MD [Staff Physician] - See instructions (Random recurrent episodes of midepigastric pain radiating to the back with nausea, vomiting but reassuring workups) Activity Restrictions/Add. Instructions Additional Instructions/Restrictions: Call your family doctor to establish care for this visit to the emergency department and schedule follow-up within 48 hours to ensure improvement. If you have any worsening of your condition or any other concerning signs or symptoms, return to the emergency department or your primary care doctor for further evaluation. Gastroenterology information with Dr. Dawkins is here, call for further evaluation. Clinical Impressions Clinical Impression: Abdominal pain, Vomiting Instructions Patient Instructions: DI for Acute Abdominal Pain Print Language Print Language: Frisian Discharge ED Provider: Roscoe Mcgee General Adult HPI <Raghav Lobo MD - Last Filed: 05/07/24 07:33> General Chief complaint: Abdominal Pain Stated complaint: adb pain, vomitting Time Seen by Provider: 05/07/24 06:05 History of Present Illness HPI narrative: 29-year-old male with history of stomach problems on duloxetine and pantoprazole presents to the ER for mid abdominal/epigastric abdominal pain with 2 episodes of vomiting. Patient presented for the same symptoms yesterday. He had broad workup including CT that demonstrated findings of enteritis but reassuring lab workup according to my review of that visit. He reports the antispasm medication he received yesterday improved his symptoms. He states he went home feeling somewhat better and through the day continued to feel improved. Last night he ate a normal dinner but this morning around 5 AM he woke up with the severe cramping sensation in his mid upper abdomen again. He had emesis of dark material with a few white balls in it that he does not know what they are. Patient states anytime he gets these episodes he has a similar tasting/smelling burp and his symptoms are always the exact same. He states he has been evaluated multiple times and followed up with GI previously without an answer as to what causes his symptoms. He came to the ER due to significant pain. He states the pain does not radiate he has no chest pain or shortness of breath, no headache or dizziness, no numbness, tingling, weakness. No diarrhea or constipation. He states symptoms are 100% identical to those that he presented with yesterday. Related Data Home Medications ?Medication ?Instructions ?Recorded ?Confirmed duloxetine 60 mg capsule,delayed 60 mg PO DAILY 01/09/24 04/13/24 release irbesartan 150 mg tablet 150 mg PO DAILY 01/09/24 04/13/24 pantoprazole 40 mg tablet,delayed 40 mg PO DAILY 01/09/24 04/13/24 release Previous Rx's ?Medication ?Instructions ?Recorded clomiphene citrate 50 mg tablet 50 mg PO .COMPLEX 30 days #30 tabs 04/13/24 (Clomid) ondansetron 4 mg disintegrating 4 mg PO Q8H PRN nausea and 05/06/24 tablet vomiting 4 days #12 tabs Allergies Allergy/AdvReac Type Severity Reaction Status Date / Time No Known Allergies Allergy Verified 04/13/24 08:49 [facility] <Raghav Lobo MD - Last Filed: 05/07/24 07:33> [facility] Disclaimer: The information contained in this section may have been updated after the patient was seen, as this information can be updated by other users. 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 GERD (gastroesophageal reflux disease) Hypertension Depression Anxiety Post-concussional syndrome Head injury due to trauma Strep throat Patient left before triage assessment Abdominal pain Sprain of right foot Exposure to COVID-19 virus Surgical History No significant past surgical history Family History Other No significant family history Social History Smoking Status: Never smoker alcohol intake: never current occupational status: employed Travel in the last 8 weeks: None Other 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 Have you received the Flu Vaccine for this season: No Have you received the Pneumonia Vaccine: No <Raghav Lobo MD - Last Filed: 05/07/24 07:33> ROS Obtained: Yes All systems reviewed & no additional complaints except as documented Positive ROS per HPI Physical Exam <Raghav Lobo MD - Last Filed: 05/07/24 07:33> General General appearance: alert, in no apparent distress and obese Head Head exam: atraumatic and normocephalic Eye Eye exam: Present PERRL and EOMI ENT ENT exam: Present mucous membranes moist Neck Neck exam: Present normal inspection and full ROM Chest Chest inspection: Present symmetric chest wall rise Respiratory Respiratory exam: Absent respiratory distress or stridor Cardiovascular Cardiovascular exam: Present regular rate and normal rhythm Abdominal Exam Abdominal exam: Present soft; Absent distention, tenderness, guarding or rebound Extremities Exam Extremities exam: Present full ROM Back Exam Back exam: Absent CVA tenderness (R) or CVA tenderness (L) Neurological Exam Neurological exam: Present alert and oriented X3; Absent motor sensory deficit Psychiatric Psychiatric exam: Present normal affect and normal mood Skin Skin exam: Present warm and dry Medical Decision Making <Raghav Lobo MD - Last Filed: 05/07/24 07:33> Medical Records Medical records reviewed: Yes I reviewed the patient's medical records. Screening: Per USPSTF and CDC recommendations, given the prevalence of disease in our region, it is our hospital?s policy to screen for HIV and viral Hepatitis for all patients aged 18 and over and those with ongoing risk factors. MR Comment: See HPI for details Reginald Inquiry Pt receiving controlled substance: No Vital Signs: 05/07/24 06:12 05/07/24 07:05 05/07/24 07:30 Temperature 98.5 F Temperature Source Oral Pulse Rate 103 H 101 H Pulse Rate [Left Radial] 115 H Respiratory Rate 16 18 24 Blood Pressure 135/74 144/80 H Blood Pressure [Right Arm] 155/94 H Blood Pressure Mean [Right Arm] 114 Blood Pressure Source [Right Arm] Automatic Cuff 02 Sat by Pulse Oximetry 98 96 96 Oxygen Delivery Method Room Air 05/07/24 08:00 Temperature Temperature Source Pulse Rate 105 H Pulse Rate [Left Radial] Respiratory Rate 22 Blood Pressure 136/86 Blood Pressure [Right Arm] Blood Pressure Mean [Right Arm] Blood Pressure Source [Right Arm] 02 Sat by Pulse Oximetry 96 Oxygen Delivery Method Lab Data Lab Results 05/07/24 06:28: WBC 10.4, RBC 5.62, Hgb 15.5, Hct 46.0, MCV 81.9, MCH 27.5, MCHC 33.6, RDW 14.2, Plt Count 376, MPV 6.9 L, Neut % (Auto) 62.6, Lymph % (Auto) 26.5, [place] % (Auto) 7.5, Eos % (Auto) 2.6, Baso % (Auto) 0.8, Neut # (Auto) 6.5, Lymph # (Auto) 2.7, [place] # (Auto) 0.8, Eos # (Auto) 0.3, Baso # (Auto) 0.1, Sodium 138, Potassium 3.8, Chloride 104, Carbon Dioxide 23, Anion Gap 14.8, BUN 14, Creatinine 0.70, Estimated Creat Clear 189, Estimated GFR 135, Est GFR ( Amer) 164, Glucose 138 H, Lactate 1.3, Calcium 8.8, Total Bilirubin 0.9, AST 34, ALT 40, Alkaline Phosphatase 66, Troponin I < 0.01, Total Protein 7.3, Albumin 4.1, Globulin 3.2, Albumin/Globulin Ratio 1.3, Lipase 54 05/07/24 06:28 05/07/24 06:28 Orders (Tests/Meds): ED MEDICATIONS Discontinued Medications Generic Name Dose Route Start Last Admin Trade Name Rosa PRN Reason Stop Dose Admin Acetaminophen 1,000 mg 05/07/24 06:34 05/07/24 06:36 Acetaminophen 500mg Tab PO 05/07/24 06:35 1,000 mg ONCE ONE Administration Dicyclomine HCl 10 mg 05/07/24 06:14 05/07/24 06:35 Dicyclomine 10mg Capsule PO 05/07/24 06:15 10 mg ONCE ONE Administration Droperidol 2.5 mg 05/07/24 06:51 05/07/24 06:59 Droperidol 5mg/2ml Vial IV 05/07/24 06:52 2.5 mg ONCE ONE Administration Ketorolac Tromethamine 15 mg 05/07/24 06:31 05/07/24 06:35 Ketorolac 30mg/Ml Vial IV 05/07/24 06:32 15 mg ONCE ONE Administration Ondansetron HCl 4 mg 05/07/24 06:14 05/07/24 06:35 Ondansetron 4mg/2ml Vial IV 05/07/24 06:15 4 mg ONCE ONE Administration ORDERS Category Date Time Status CBC w/Auto Diff [Complete Blood Count Auto Diff] Stat Lab 05/07/24 06:28 Completed CMP [Comprehensive Metabolic Panel] Stat Lab 05/07/24 06:28 Completed HIV (1&2) Antibody Rapid Stat Lab 05/07/24 06: Received Hep C Ab with Reflex to RNA Stat Lab 05/07/24 06:28 Received Lactic Acid Stat Lab 05/07/24 06:28 Completed Lipase Stat Lab 05/07/24 06:28 Completed Trop I [Troponin I] Stat Lab 05/07/24 06:28 Completed Troponin I Q3H Lab 05/07/24 09:30 Ordered Troponin I Q3H Lab 05/07/24 12:30 Ordered Medical Decision Narrative: In summary, this 29-year-old male with comorbidities as listed in HPI presents to the emergency department today with midepigastric abdominal pain with vomiting. On initial evaluation patient is hemodynamically stable, afebrile, despite the location of patient's pain, he has no tenderness to palpation even on deep palpation, no CVA tenderness, cardiopulmonary exam benign, remainder of exam reassuring. Differential diagnosis includes but is not limited to enteritis, viral syndrome, electrolyte abnormality, pancreatitis, lactic acidosis, I considered the possibility of biliary pathology, mass, among others however patient had broad workup yesterday which included his reassuring CT scan that did not demonstrate acute intra-abdominal pathology. I considered performing CT today however with reassuring scan yesterday and symptoms identical to those today I have extremely low suspicion for new intra-abdominal pathology that would be identified on reimaging today so it will not be performed. Based on these concerns, I ordered serum labs. Patient is never been evaluated for cardiac abnormality and it is possible though much less likely that this is an atypical presentation of ACS so ECG, troponin will be ordered. Since patient symptoms really started yesterday, if initial troponin is not detectable, serial troponin should not be indicated Patient had received dicyclomine yesterday which he reported improved symptoms. This is being administered to the patient along with Zofran. He continue complaining of pain and received Tylenol, Toradol. Labs personally reviewed demonstrate CBC with no leukocytosis or anemia, normal platelets, CMP with no findings of kidney dysfunction or electrolyte abnormality, initial troponin undetectably low at less than 0.01, significantly reassuring in the setting of patient not actually having chest pain as well as having multiple days of symptoms. Lipase normal at 54, reassuring against pancreatitis. ECG personally interpreted demonstrates normal sinus rhythm, rate 98, normal axis, normal MO and QTc, no STEMI. On reassessment after initial medications, he continued complaining of discomfort and nausea. Droperidol administered. Patient was placed into ED observation at 0730 for continued symptomatic monitoring and management in an attempt to control his symptoms to preclude unnecessary admission. Patient added off to Dr. Mcgee for continued management and disposition. <Roscoe Mcgee MD - Last Filed: 05/07/24 08:41> Vital Signs: 05/07/24 06:12 05/07/24 07:05 05/07/24 07:30 Temperature 98.5 F Temperature Source Oral Pulse Rate 103 H 101 H Pulse Rate [Left Radial] 115 H Respiratory Rate 16 18 24 Blood Pressure 135/74 144/80 H Blood Pressure [Right Arm] 155/94 H Blood Pressure Mean [Right Arm] 114 Blood Pressure Source [Right Arm] Automatic Cuff 02 Sat by Pulse Oximetry 98 96 96 Oxygen Delivery Method Room Air 05/07/24 08:00 Temperature Temperature Source Pulse Rate 105 H Pulse Rate [Left Radial] Respiratory Rate 22 Blood Pressure 136/86 Blood Pressure [Right Arm] Blood Pressure Mean [Right Arm] Blood Pressure Source [Right Arm] 02 Sat by Pulse Oximetry 96 Oxygen Delivery Method Lab Data Lab Results 05/07/24 06:28: WBC 10.4, RBC 5.62, Hgb 15.5, Hct 46.0, MCV 81.9, MCH 27.5, MCHC 33.6, RDW 14.2, Plt Count 376, MPV 6.9 L, Neut % (Auto) 62.6, Lymph % (Auto) 26.5, [place] % (Auto) 7.5, Eos % (Auto) 2.6, Baso % (Auto) 0.8, Neut # (Auto) 6.5, Lymph # (Auto) 2.7, [place] # (Auto) 0.8, Eos # (Auto) 0.3, Baso # (Auto) 0.1, Sodium 138, Potassium 3.8, Chloride 104, Carbon Dioxide 23, Anion Gap 14.8, BUN 14, Creatinine 0.70, Estimated Creat Clear 189, Estimated GFR 135, Est GFR ( Amer) 164, Glucose 138 H, Lactate 1.3, Calcium 8.8, Total Bilirubin 0.9, AST 34, ALT 40, Alkaline Phosphatase 66, Troponin I < 0.01, Total Protein 7.3, Albumin 4.1, Globulin 3.2, Albumin/Globulin Ratio 1.3, Lipase 54 Orders (Tests/Meds): ED MEDICATIONS Discontinued Medications Generic Name Dose Route Start Last Admin Trade Name Freq PRN Reason Stop Dose Admin Acetaminophen 1,000 mg 05/07/24 06:34 05/07/24 06:36 Acetaminophen 500mg Tab PO 05/07/24 06:35 1,000 mg ONCE ONE Administration Dicyclomine HCl 10 mg 05/07/24 06:14 05/07/24 06:35 Dicyclomine 10mg Capsule PO 05/07/24 06:15 10 mg ONCE ONE Administration Droperidol 2.5 mg 05/07/24 06:51 05/07/24 06:59 Droperidol 5mg/2ml Vial IV 05/07/24 06:52 2.5 mg ONCE ONE Administration Ketorolac Tromethamine 15 mg 05/07/24 06:31 05/07/24 06:35 Ketorolac 30mg/Ml Vial IV 05/07/24 06:32 15 mg ONCE ONE Administration Ondansetron HCl 4 mg 05/07/24 06:14 05/07/24 06:35 Ondansetron 4mg/2ml Vial IV 05/07/24 06:15 4 mg ONCE ONE Administration ORDERS Category Date Time Status CBC w/Auto Diff [Complete Blood Count Auto Diff] Stat Lab 05/07/24 06:28 Completed CMP [Comprehensive Metabolic Panel] Stat Lab 05/07/24 06:28 Completed HIV (1&2) Antibody Rapid Stat Lab 05/07/24 06:28 Received Hep C Ab with Reflex to RNA Stat Lab 05/07/24 06:28 Received Lactic Acid Stat Lab 05/07/24 06:28 Completed Lipase Stat Lab 05/07/24 06:28 Completed Trop I [Troponin I] Stat Lab 05/07/24 06:28 Completed Troponin I Q3H Lab 05/07/24 09:30 Ordered Troponin I Q3H Lab 05/07/24 12:30 Ordered Medical Decision Narrative: In summary, this 29-year-old male with comorbidities as listed in HPI presents to the emergency department today with midepigastric abdominal pain with vomiting. On initial evaluation patient is hemodynamically stable, afebrile, despite the location of patient's pain, he has no tenderness to palpation even on deep palpation, no CVA tenderness, cardiopulmonary exam benign, remainder of exam reassuring. Differential diagnosis includes but is not limited to enteritis, viral syndrome, electrolyte abnormality, pancreatitis, lactic acidosis, I considered the possibility of biliary pathology, mass, among others however patient had broad workup yesterday which included his reassuring CT scan that did not demonstrate acute intra-abdominal pathology. I considered performing CT today however with reassuring scan yesterday and symptoms identical to those today I have extremely low suspicion for new intra-abdominal pathology that would be identified on reimaging today so it will not be performed. Based on these concerns, I ordered serum labs. Patient is never been evaluated for cardiac abnormality and it is possible though much less likely that this is an atypical presentation of ACS so ECG, troponin will be ordered. Since patient symptoms really started yesterday, if initial troponin is not detectable, serial troponin should not be indicated Patient had received dicyclomine yesterday which he reported improved symptoms. This is being administered to the patient along with Zofran. He continue complaining of pain and received Tylenol, Toradol. Labs personally reviewed demonstrate CBC with no leukocytosis or anemia, normal platelets, CMP with no findings of kidney dysfunction or electrolyte abnormality, initial troponin undetectably low at less than 0.01, significantly reassuring in the setting of patient not actually having chest pain as well as having multiple days of symptoms. Lipase normal at 54, reassuring against pancreatitis. ECG personally interpreted demonstrates normal sinus rhythm, rate 98, normal axis, normal MO and QTc, no STEMI. On reassessment after initial medications, he continued complaining of discomfort and nausea. Droperidol administered. Patient was placed into ED observation at 0730 for continued symptomatic monitoring and management in an attempt to control his symptoms to preclude unnecessary admission. Patient added off to Dr. Mcgee for continued management and disposition. Everardo: I assumed primary responsibility for this patient after signout from previous physician. On my evaluation, patient states that he is feeling better, ambulated to the restroom. Patient remains tachycardic, after chart review, patient pretty consistently tachycardic and states that his heart rate usually runs high. Not currently in pain. I feel he is appropriate for outpatient management. Dr. Dawkins, gastroenterology, information referral was placed. Patient was observed for a period of nearly 2 hours after droperidol with return to baseline. Independent interpretation of workup with nonactionable hematologic labs. Because patient at baseline without signs or symptoms of clinical decompensation, deemed appropriate for discharge. Results were relayed to patient who voiced understanding and were agreeable to outpatient management and follow up. I discussed my clinical impression with patient and answered all questions. At this time, the evidence for any other entities in the differential is insufficient to warrant any further testing or ED observation. This was explained as well. Advisory was given that persistent or worsening symptoms require further evaluation. I confirmed the understanding of this discussion. Critical Care <Raghav Lobo MD - Last Filed: 05/07/24 07:33> Critical Care Time Critical Care Time: No
[2024-05-07] MEDS: DICYCLOMINE 10MG CAPSULE 10 MG PO (06:35)
[2024-05-07] MEDS: ONDANSETRON 4MG/2ML VIAL 4 MG IV (06:35)
[2024-05-07] MEDS: KETOROLAC 30MG/ML VIAL 15 MG IV (06:35)
[2024-05-07] MEDS: ACETAMINOPHEN 500MG TAB 1000 MG PO (06:36)
[2024-05-07 06:45] LABS: Basophils # 0.1 K/mm3 (0-0.2); Basophils % 0.8 % (0.1-2.0); Eosinophils # 0.3 K/mm3 (0.0-0.4); Eosinophils % 2.6 % (0.1-12.0); Hemoglobin 15.5 g/dL (14.1-18.0); Lymphocytes # 2.7 K/mm3 (0.7-4.5); Lymphocytes % 26.5 % (10-50); Mean Corpuscular HGB Conc 33.6 g/dL (31.8-35.4); Mean Corpuscular Hemoglobin 27.5 pg (27.0-31.2); Mean Corpuscular Volume 81.9 fl (80-94); Mean Platelet Volume 6.9 fl (7.4-10.4); Monocytes # 0.8 K/mm3 (0.1-1.0); Monocytes % 7.5 % (1.7-9.3); Neutrophils # 6.5 K/mm3 (1.8-7.8); Neutrophils % 62.6 % (37.0-80.0); Platelet Count 376 K/mm3 (142-424); Red Blood Count 5.62 M/mm3 (4.60-6.20); Red Cell Distribution Width 14.2 % (11.5-17.5); White Blood Count 10.4 K/mm3 (4.8-10.8)
[2024-05-07 06:51] LABS: Albumin Level 4.1 g/dl (3.5-5.0); Chloride 104 mmol/L (98-107); Sodium 138 mmol/L (136-145)
[2024-05-07 06:52] LABS: Potassium 3.8 mmoL/L (3.5-5.1)
[2024-05-07 06:54] LABS: Alanine Aminotransferase 40 U/L (12-78); Albumin/Globulin Ratio 1.3 (1.1-1.8); Alkaline Phosphatase 66 U/L (38-126); Anion Gap 14.8 mEq/L (5-15); Aspartate Amino Transferase 34 U/L (17-59); Bilirubin,Total 0.9 mg/dl (0.2-1.3); Blood Urea Nitrogen 14 mg/dl (9-20); Carbon Dioxide 23 mmol/L (22.0-30.0); Creatinine Clearance Estimated 189 mL/min (50-200); Estimated Glomerular Filt Rate 135 ml/min (>60); GFR (African American) 164 ML/MIN (>60); Globulin 3.2 g/dL (1.3-3.2); Lipase 54 U/L (23-300); Total Protein,Serum 7.3 g/dl (6.3-8.2)
[2024-05-07 06:55] LABS: Calcium 8.8 mg/dl (8.4-10.2); Glucose 138 mg/dl (74-100)
[2024-05-07 06:56] LABS: Lactic Acid 1.3 mmol/L (0.7-2.1)
--- NOTE | 2024-05-07 06:56 | ECG_ITS ---
APPROVED REPORT Exam: Resting ECG HR:98 bpm ECG Measurements Heart Rate 98 AXES HI 148 P 32 QRSd 101 QRS 26 QT 327 T 4 QTc 382 Conclusion SINUS RHYTHM NONSPECIFIC T-WAVE ABNORMALITY No STEMI Electronically signed by : MADELEINE WATSON, 05/08/2024 03:22:00
[2024-05-07] MEDS: droPERidol 5MG/2ML VIAL 2.5 MG IV (06:59)
[2024-05-07 07:05] VITALS: BP 135/74; PULSE 103; RESP 18; O2SAT 96
[2024-05-07 07:07] LABS: Troponin I < 0.01 ng/ml (0.00-0.034)
[2024-05-07 07:30] VITALS: BP 144/80; PULSE 101; RESP 24; O2SAT 96
[2024-05-07 08:00] VITALS: BP 136/86; PULSE 105; RESP 22; O2SAT 96
--- NOTE | 2024-05-07 08:21 | PC.NURSE ---
pt assisted to br
[2024-05-07 08:50] VITALS: BP 163/101; PULSE 120; RESP 18; TEMP 36.7; O2SAT 99
[2024-05-07 15:57] LABS: HIV (1&2) Antibody Rapid NONREACTIVE (NONREACTIVE)
[2024-05-08 09:15] LABS: HCV Ab Non Reactive (Non Reactive)
== END 2024-05-07 08:50 | disposition home or self-care (01) ==
PROVIDERS: Emergency Medicine; Emergency Provider Emergency Medicine; PCP Family Medicine
DX: R10.13 Epigastric pain (principal); R11.11 Vomiting without nausea
CPT/HCPCS: 80053; 83605; 83690; 84484; 85025; 86803; 87389; 93005; 96374; 96375; 99283; J1790; J1885; J2405

== ENCOUNTER 2024-05-08 21:54 | Observation (INO) | payer BC, SELFPAY ==
[2024-05-08 22:02] VITALS: BP 149/106; PULSE 103; RESP 18; TEMP 36.8; O2SAT 97; BMI 42.5
[2024-05-08 22:16] LABS: Basophils # 0.1 K/mm3 (0-0.2); Basophils % 0.7 % (0.1-2.0); Eosinophils # 0.3 K/mm3 (0.0-0.4); Eosinophils % 2.3 % (0.1-12.0); Hematocrit 47.7 % (42.0-52.0); Hemoglobin 15.8 g/dL (14.1-18.0); Lymphocytes # 4.7 K/mm3 (0.7-4.5); Lymphocytes % 32.7 % (10-50); Mean Corpuscular HGB Conc 33.2 g/dL (31.8-35.4); Mean Corpuscular Hemoglobin 27.1 pg (27.0-31.2); Mean Corpuscular Volume 81.7 fl (80-94); Mean Platelet Volume 6.9 fl (7.4-10.4); Monocytes # 0.9 K/mm3 (0.1-1.0); Neutrophils # 8.4 K/mm3 (1.8-7.8); Neutrophils % 58.3 % (37.0-80.0); Platelet Count 397 K/mm3 (142-424); Red Blood Count 5.85 M/mm3 (4.60-6.20); Red Cell Distribution Width 14.2 % (11.5-17.5); White Blood Count 14.4 K/mm3 (4.8-10.8)
[2024-05-08] MEDS: ACETAMINOPHEN 500MG TAB 1000 MG PO (22:18)
[2024-05-08] MEDS: KETOROLAC 30MG/ML VIAL 15 MG IV (22:18)
[2024-05-08] MEDS: PROMETHAZINE HCL 25MG/ML 1ML VIAL 25 MG IV (22:18)
[2024-05-08] MEDS: SODIUM CHLORIDE 0.9% 25ML BAG 25 ML IV (22:19)
--- NOTE | 2024-05-08 22:20 | ED_ITS ---
Discharge Plan Disposition Patient Disposition: Admitted Clinical Impressions Clinical Impression: Nausea & vomiting, Abdominal pain Discharge ED Provider: Roscoe Mcgee General Adult HPI <Roscoe Mcgee MD - Last Filed: 05/08/24 23:13> General Chief complaint: Abdominal Pain Stated complaint: Stomach pain with vomiting,diarrhea Time Seen by Provider: 05/08/24 22:04 Mode of Arrival: Ambulatory Source of Information: Patient Limitations: No Limitations Description of Symptoms (Recalled from ER Triage Doc. by RN): Patient complains of abdominal pain and vomiting for four days. States it has happened in the past. Pain located in the mid abdomen History of Present Illness HPI narrative: Please note that above description of symptoms, in this electronic medical record under categorization of recalled from ER triage doctor by RN are reflective of an initial nursing assessment, however, is not reflective of my full history and physical exam that was personally taken and clarified. Consequentially, this preceding description of symptoms, which may include the patient's categorized chief complaint in the EMR, do not reflect my personal clinical impression, and the ultimate description of history of present illness and patient stated complaints should be deferred to this section of the note. Unless stated otherwise or congruent with this section of the note, additional signs, symptoms, or incongruence should be interpreted as inaccurate with my clinical impression. Related Data Home Medications ?Medication ?Instructions ?Recorded ?Confirmed duloxetine 60 mg capsule,delayed 60 mg PO BID 01/09/24 05/09/24 release pantoprazole 40 mg tablet,delayed 40 mg PO DAILY 01/09/24 05/09/24 release clomiphene citrate 50 mg tablet 50 mg PO Q48H 05/09/24 05/09/24 (Clomid) dicyclomine 20 mg tablet 20 mg PO QID 05/09/24 05/09/24 famotidine 20 mg tablet 20 mg PO BID 05/09/24 05/09/24 irbesartan 300 mg tablet 300 mg PO DAILY 05/09/24 05/09/24 ondansetron 4 mg disintegrating 4 mg PO Q8HP PRN nausea and 05/09/24 05/09/24 tablet vomiting Allergies Allergy/AdvReac Type Severity Reaction Status Date / Time No Known Allergies Allergy Verified 04/13/24 08:49 PFSH <Roscoe Mcgee MD - Last Filed: 05/08/24 23:13> PFS Disclaimer: The information contained in this section may have been updated after the patient was seen, as this information can be updated by other users. 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 (Updated 05/09/24 @ 08:56 by Karsten Draper MD) Vitamin D deficiency GERD (gastroesophageal reflux disease) Hypertension Depression Anxiety Post-concussional syndrome Head injury due to trauma Strep throat Abdominal pain Sprain of right foot Exposure to COVID-19 virus Surgical History No significant past surgical history Family History No significant family history Social History Smoking Status: Never smoker alcohol intake: never current occupational status: employed Travel in the last 8 weeks: None Other 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 Have you received the Flu Vaccine for this season: No Have you received the Pneumonia Vaccine: No <Roscoe Mcgee MD - Last Filed: 05/08/24 23:13> ROS Obtained: Yes All systems reviewed & no additional complaints except as documented Physical Exam <Roscoe Mcgee MD - Last Filed: 05/08/24 23:13> General General appearance: alert Head Head exam: atraumatic and normocephalic Eye Eye exam: Present normal appearance, PERRL and EOMI Neck Neck exam: Present normal inspection, full ROM and trachea midline Respiratory Respiratory exam: Absent respiratory distress, wheezes, stridor, accessory muscle use or prolonged expiratory phase Cardiovascular Cardiovascular exam: Present normal rhythm, tachycardia and other (Pulses equal symmetric in upper and lower extremities) Abdominal Exam Abdominal exam: Present soft and tenderness; Absent distention, guarding, rebound, rigidity, Crenshaw's sign, tenderness at McBurney's Point or pulsatile mass Abdominal tenderness: Present diffuse and mild Extremities Exam Extremities exam: Absent edema Neurological Exam Neurological exam: Present alert, oriented X3 and CN II-XII intact; Absent motor sensory deficit Skin Skin exam: Present warm and dry; Absent diaphoresis or erythema Medical Decision Making <Roscoe Mcgee MD - Last Filed: 05/08/24 23:13> Medical Records Medical records reviewed: Yes I reviewed the patient's medical records. Screening: Per USPSTF and CDC recommendations, given the prevalence of disease in our region, it is our hospital?s policy to screen for HIV and viral Hepatitis for all patients aged 18 and over and those with ongoing risk factors. Reginald Inquiry Pt receiving controlled substance: No Reginald was queried for this patient: No Vital Signs: 05/08/24 22:02 05/09/24 00:00 05/09/24 00:17 Temperature 98.2 F 98.2 F Temperature Source Oral Pulse Rate 92 H Pulse Rate [Right Radial] 103 H 92 H Respiratory Rate 18 16 16 Blood Pressure 104/79 L Blood Pressure [Right Arm] 149/106 H 104/79 L Blood Pressure Mean [Right Arm] 120 87 Blood Pressure Source [Right Arm] Automatic Cuff Automatic Cuff Blood Pressure Position [Right Arm] Supine 02 Sat by Pulse Oximetry 97 99 Oxygen Delivery Method Room Air Room Air Lab Data Lab Results 05/08/24 22:06: WBC 14.4 H D, RBC 5.85, Hgb 15.8, Hct 47.7, MCV 81.7, MCH 27.1, MCHC 33.2, RDW 14.2, Plt Count 397, MPV 6.9 L, Neut % (Auto) 58.3, Lymph % (Auto) 32.7, [place] % (Auto) 6.0, Eos % (Auto) 2.3, Baso % (Auto) 0.7, Neut # (Auto) 8.4 H, Lymph # (Auto) 4.7 H, [place] # (Auto) 0.9, Eos # (Auto) 0.3, Baso # (Auto) 0.1, ESR 1, PT 10.9, INR 0.97, APTT 29.3, Sodium 139, Potassium 3.7, C hloride 109 H, Carbon Dioxide 19 L, Anion Gap 14.7, BUN 13, Creatinine 0.80, Estimated Creat Clear 166, Estimated GFR 116, Est GFR ( Amer) 140, G lucose 122 H, Hemoglobin A1c 6.0, Lactate 1.4, Calcium 9.3, Magnesium 1.6, Total Bilirubin 1.1, AST 35, ALT 40, Alkaline Phosphatase 64, Troponin I < 0.01, C- Reactive Protein 11.3 H, Total Protein 7.7, Albumin 4.3, Globulin 3.4 H, Albumin/Globulin Ratio 1.3, Triglycerides 241 H 05/08/24 22:06: Triglycerides 242 H, Cholesterol 185, LDL Cholesterol Direct 125.09, VLDL Cholesterol 48 H, HDL Cholesterol 26 L, Cholesterol/HDL Ratio 7.1 H , Lipase 52 05/08/24 22:06 05/08/24 22:06 Orders (Tests/Meds): ED MEDICATIONS Generic Name Dose Route Start Last Admin Trade Name Rosa PRN Reason Stop Dose Admin Acetaminophen 650 mg 05/09/24 09:02 05/09/24 18:20 Acetaminophen 325mg Tab PO 06/08/24 09:01 650 mg Q6HP PRN Administration Fever or Mild Pain (1-3) Famotidine 20 mg 05/09/24 09:00 05/09/24 20:07 Famotidine 20mg Tablet PO 06/08/24 08:59 20 mg BID ARISTEO Administration Azithromycin 500 mg/ Sodium 250 mls @ 250 mls/hr 05/09/24 09:00 05/09/24 09:33 Chloride IV 05/19/24 08:59 250 mls/hr Q24H ARISTEO Administration Potassium Chloride/Dextrose/Sod Cl 1,000 mls @ 50 mls/hr 05/09/24 09:15 05/10/24 05:30 Kcl 20meq In D5w-0.45% Nacl IV 06/08/24 09:14 50 mls/hr .Q20H ARISTEO Administration Irbesartan 300 mg 05/09/24 09:00 05/09/24 09:33 Irbesartan 300mg Tablet PO 06/08/24 08:59 300 mg DAILY ARISTEO Administration Ondansetron HCl 4 mg 05/09/24 09:00 05/09/24 09:35 Ondansetron 4mg Odt PO 06/08/24 08:59 4 mg Q8HP PRN Administration nausea and vomiting Simethicone 80 mg 05/09/24 21:00 Simethicone 80mg Chewable Tablet PO 06/08/24 20:59 Q6HP PRN Gas Pain and Discomfort Sodium Chloride 10 ml 05/09/24 09:10 Sodium Chloride 0.9% 10ml Flush Syringe IV 06/08/24 09:09 NEEDED PRN Maintain IV Site Discontinued Medications Generic Name Dose Route Start Last Admin Trade Name Rosa PRN Reason Stop Dose Admin Acetaminophen 1,000 mg 05/08/24 22:04 05/08/24 22:18 Acetaminophen 500mg Tab PO 05/08/24 22:05 1,000 mg ONCE ONE Administration Al Hydrox/Mg Hydrox/Simethicone 30 ml 05/08/24 23:12 05/08/24 23:16 Aluminum/Magnesium/Simethicone 30ml Udc PO 05/08/24 23:13 30 ml ONCE ONE Administration Belladonna Alkaloids 60 ml 05/08/24 23:02 05/08/24 23:05 Belladonna Alkaloids 60 Ml Ml PO 05/08/24 23:03 60 ml ONCE ONE Administration Dextrose 250 ml 05/08/24 23:44 05/09/24 07:22 Dextrose 5% In Water 250ml IV 05/08/24 23:45 Not Given ONCE ONE Dextrose 500 ml 05/08/24 23:44 05/08/24 23:58 Dextrose 5% In Water 250ml IV 05/08/24 23:45 500 ml ONCE ONE Administration Dicyclomine HCl 10 mg 05/08/24 23:32 05/08/24 23:35 Dicyclomine 10mg Capsule PO 05/08/24 23:33 10 mg ONCE ONE Administration Hydromorphone HCl 0.5 mg 05/08/24 22:58 05/08/24 23:05 Hydromorphone 2mg/Ml Syringe IV 05/08/24 22:59 0.5 mg ONCE ONE Administration Metronidazole 500 mg in 100 mls @ 100 mls/hr 05/08/24 23:48 05/08/24 23:58 Flagyl 500mg/100ml Ivpb IV 05/09/24 00:47 100 mls/hr ONCE ONE Administration Ketorolac Tromethamine 15 mg 05/08/24 22:04 05/08/24 22:18 Ketorolac 30mg/Ml Vial IV 05/08/24 22:05 15 mg ONCE ONE Administration Ondansetron HCl 4 mg 05/08/24 23:41 05/09/24 07:21 Ondansetron 4mg/2ml Vial IV 05/08/24 23:42 Not Given ONCE ONE Prochlorperazine Edisylate 5 mg 05/08/24 23:50 05/09/24 07:22 Prochlorperazine 10mg/2ml Vial IV 05/08/24 23:51 Not Given ONCE ONE Prochlorperazine Edisylate 10 mg 05/08/24 23:52 05/08/24 23:58 Prochlorperazine 10mg/2ml Vial IV 05/08/24 23:53 10 mg ONCE ONE Administration Promethazine HCl 25 mg 05/08/24 22:04 05/08/24 22:18 Promethazine Hcl 25mg/Ml 1ml Vial IV 05/08/24 22:05 25 mg ONCE ONE Administration Sodium Chloride 25 ml 05/08/24 22:04 05/08/24 22:19 Sodium Chloride 0.9% 25ml Bag IV 05/08/24 22:05 25 ml ONCE ONE Administration ORDERS Category Date Time Status POCUS Point of Care (ER Only) Stat Exams 05/08/24 22:58 Completed CRP [C-Reactive Protein] Stat Lab 05/08/24 22:06 Completed Complete Blood Count Auto Diff Stat Lab 05/08/24 22:06 Completed Comprehensive Metabolic Panel Stat Lab 05/08/24 22:06 Completed Diarrhea 6-11 Panel, Cdiff PCR Stat Lab 05/09/24 01:20 Completed ESR [Erythrocyte Sedimentation Rate] Stat Lab 05/08/24 22:06 Completed HIV (1&2) Antibody Rapid Stat Lab 05/08/24 22:06 Completed Hemoglobin A1C Stat Lab 05/08/24 22:06 Completed Hep C Ab with Reflex to RNA Stat Lab 05/08/24 22:06 Received Lactic Acid Stat Lab 05/08/24 22:06 Completed Lipase Stat Lab 05/08/24 22:06 Completed Lipid Panel Stat Lab 05/08/24 22:06 Completed Magnesium Stat Lab 05/08/24 22:06 Completed PT INR [Prothrombin Time INR] Stat Lab 05/08/24 22:06 Completed PTT [Activated Partial Thrombo Time] Stat Lab 05/08/24 22:06 Completed Triglycerides Stat Lab 05/08/24 22:06 Completed Troponin I Q3H Lab 05/09/24 00:35 Completed Troponin I Q3H Lab 05/09/24 04:20 Completed Troponin I Stat Lab 05/08/24 22:06 Completed Medical Decision Narrative: 29-year-old male history of chronic abdominal pain, hypertension presenting with abdominal pain and vomiting. Patient states that he has these episodes where he vomits for no apparent reason for a day or 2 every few months. This episode started 4 days prior to this. Nonbloody, nonbilious vomit and stool. He states that vomit and stool are in oranges color, though. No fevers or chills, urinary symptoms. States that he has been seen by gastroenterology in the past, unable to figure out why this is happening. Takes Bentyl and Protonix daily. Currently having periumbilical pain that feels like my guts are twisting. Does not radiate. History was obtained via conversation with patient. On arrival, patient hemodynamically stable, alert, oriented x4, appropriate, GCS 15, moving all extremities spontaneously, pupils equal and reactive to light. Full physical exam performed and significant for hypertensive, tachycardic, uncomfortable appearing male holding vomitus bag. Abdomen is soft, mildly tender in periumbilical region, but not peritonitic. Normal bowel sounds. Cardiopulmonary exam normal. Negative Crenshaw sign and negative McBurney's point tenderness. Differential includes gastritis, gastroenteritis, malabsorption, pancreatitis, PUD, ACS, among others. Patient placed on continuous cardiac monitoring and continuous pulse ox with initial blood pressure 149/106, heart rate 103, saturation 97% on room air. Patient was given Phenergan, Toradol for symptomatic management and correction of underlying abnormalities. Workup independently interpreted and significant for mild leukocytosis, otherwise nonactionable labs.. CT scan performed 2 days prior to this with enteritis, no other acute abnormalities. I feel the risk of radiation outweighs the potential benefit given negative abdominal exam. See radiology read for further interpretation. Bedside [id number] ultrasound performed, this demonstrated normal gallbladder. lots of bowel gas. Patient tolerated some p.o. intake here. Able to keep down acetaminophen as well. GI cocktail administered. Dilaudid also given. 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 [employer]ellite [employer] Operator disclaimer Much of this encounter note is an electronic balancing machine operator spoken language to printed text. Electronic balancing machine operator of the spoken language may permit errors. Although I have reviewed the note, some errors may still exist. <Raghav Lobo MD - Last Filed: 05/10/24 06:24> Vital Signs: 05/08/24 22:02 05/09/24 00:00 05/09/24 00:17 Temperature 98.2 F 98.2 F Temperature Source Oral Pulse Rate 92 H Pulse Rate [Right Radial] 103 H 92 H Respiratory Rate 18 16 16 Blood Pressure 104/79 L Blood Pressure [Right Arm] 149/106 H 104/79 L Blood Pressure Mean [Right Arm] 120 87 Blood Pressure Source [Right Arm] Automatic Cuff Automatic Cuff Blood Pressure Position [Right Arm] Supine 02 Sat by Pulse Oximetry 97 99 Oxygen Delivery Method Room Air Room Air Lab Data Lab Results 05/08/24 22:06: WBC 14.4 H D, RBC 5.85, Hgb 15.8, Hct 47.7, MCV 81.7, MCH 27.1, MCHC 33.2, RDW 14.2, Plt Count 397, MPV 6.9 L, Neut % (Auto) 58.3, Lymph % (Auto) 32.7, [place] % (Auto) 6.0, Eos % (Auto) 2.3, Baso % (Auto) 0.7, Neut # (Auto) 8.4 H, Lymph # (Auto) 4.7 H, [place] # (Auto) 0.9, Eos # (Auto) 0.3, Baso # (Auto) 0.1, ESR 1, PT 10.9, INR 0.97, APTT 29.3, Sodium 139, Potassium 3.7, C hloride 109 H, Carbon Dioxide 19 L, Anion Gap 14.7, BUN 13, Creatinine 0.80, Estimated Creat Clear 166, Estimated GFR 116, Est GFR ( Amer) 140, G lucose 122 H, Hemoglobin A1c 6.0, Lactate 1.4, Calcium 9.3, Magnesium 1.6, Total Bilirubin 1.1, AST 35, ALT 40, Alkaline Phosphatase 64, Troponin I < 0.01, C- Reactive Protein 11.3 H, Total Protein 7.7, Albumin 4.3, Globulin 3.4 H, Albumin/Globulin Ratio 1.3, Triglycerides 241 H 05/08/24 22:06: Triglycerides 242 H, Cholesterol 185, LDL Cholesterol Direct 125.09, VLDL Cholesterol 48 H, HDL Cholesterol 26 L, Cholesterol/HDL Ratio 7.1 H , Lipase 52 Orders (Tests/Meds): ED MEDICATIONS Generic Name Dose Route Start Last Admin Trade Name Freq PRN Reason Stop Dose Admin Acetaminophen 650 mg 05/09/24 09:02 05/09/24 18:20 Acetaminophen 325mg Tab PO 06/08/24 09:01 650 mg Q6HP PRN Administration Fever or Mild Pain (1-3) Famotidine 20 mg 05/09/24 09:00 05/09/24 20:07 Famotidine 20mg Tablet PO 06/08/24 08:59 20 mg BID ARISTEO Administration Azithromycin 500 mg/ Sodium 250 mls @ 250 mls/hr 05/09/24 09:00 05/09/24 09:33 Chloride IV 05/19/24 08:59 250 mls/hr Q24H ARISTEO Administration Potassium Chloride/Dextrose/Sod Cl 1,000 mls @ 50 mls/hr 05/09/24 09:15 05/10/24 05:30 Kcl 20meq In D5w-0.45% Nacl IV 06/08/24 09:14 50 mls/hr .Q20H ARISTEO Administration Irbesartan 300 mg 05/09/24 09:00 05/09/24 09:33 Irbesartan 300mg Tablet PO 06/08/24 08:59 300 mg DAILY ARISTEO Administration Ondansetron HCl 4 mg 05/09/24 09:00 05/09/24 09:35 Ondansetron 4mg Odt PO 06/08/24 08:59 4 mg Q8HP PRN Administration nausea and vomiting Simethicone 80 mg 05/09/24 21:00 Simethicone 80mg Chewable Tablet PO 06/08/24 20:59 Q6HP PRN Gas Pain and Discomfort Sodium Chloride 10 ml 05/09/24 09:10 Sodium Chloride 0.9% 10ml Flush Syringe IV 06/08/24 09:09 NEEDED PRN Maintain IV Site Discontinued Medications Generic Name Dose Route Start Last Admin Trade Name Freq PRN Reason Stop Dose Admin Acetaminophen 1,000 mg 05/08/24 22:04 05/08/24 22:18 Acetaminophen 500mg Tab PO 05/08/24 22:05 1,000 mg ONCE ONE Administration Al Hydrox/Mg Hydrox/Simethicone 30 ml 05/08/24 23:12 05/08/24 23:16 Aluminum/Magnesium/Simethicone 30ml Udc PO 05/08/24 23:13 30 ml ONCE ONE Administration Belladonna Alkaloids 60 ml 05/08/24 23:02 05/08/24 23:05 Belladonna Alkaloids 60 Ml Ml PO 05/08/24 23:03 60 ml ONCE ONE Administration Dextrose 250 ml 05/08/24 23:44 05/09/24 07:22 Dextrose 5% In Water 250ml IV 05/08/24 23:45 Not Given ONCE ONE Dextrose 500 ml 05/08/24 23:44 05/08/24 23:58 Dextrose 5% In Water 250ml IV 05/08/24 23:45 500 ml ONCE ONE Administration Dicyclomine HCl 10 mg 05/08/24 23:32 05/08/24 23:35 Dicyclomine 10mg Capsule PO 05/08/24 23:33 10 mg ONCE ONE Administration Hydromorphone HCl 0.5 mg 05/08/24 22:58 05/08/24 23:05 Hydromorphone 2mg/Ml Syringe IV 05/08/24 22:59 0.5 mg ONCE ONE Administration Metronidazole 500 mg in 100 mls @ 100 mls/hr 05/08/24 23:48 05/08/24 23:58 Flagyl 500mg/100ml Ivpb IV 05/09/24 00:47 100 mls/hr ONCE ONE Administration Ketorolac Tromethamine 15 mg 05/08/24 22:04 05/08/24 22:18 Ketorolac 30mg/Ml Vial IV 05/08/24 22:05 15 mg ONCE ONE Administration Ondansetron HCl 4 mg 05/08/24 23:41 05/09/24 07:21 Ondansetron 4mg/2ml Vial IV 05/08/24 23:42 Not Given ONCE ONE Prochlorperazine Edisylate 5 mg 05/08/24 23:50 05/09/24 07:22 Prochlorperazine 10mg/2ml Vial IV 05/08/24 23:51 Not Given ONCE ONE Prochlorperazine Edisylate 10 mg 05/08/24 23:52 05/08/24 23:58 Prochlorperazine 10mg/2ml Vial IV 05/08/24 23:53 10 mg ONCE ONE Administration Promethazine HCl 25 mg 05/08/24 22:04 05/08/24 22:18 Promethazine Hcl 25mg/Ml 1ml Vial IV 05/08/24 22:05 25 mg ONCE ONE Administration Sodium Chloride 25 ml 05/08/24 22:04 05/08/24 22:19 Sodium Chloride 0.9% 25ml Bag IV 05/08/24 22:05 25 ml ONCE ONE Administration ORDERS Category Date Time Status POCUS Point of Care (ER Only) Stat Exams 05/08/24 22:58 Completed CRP [C-Reactive Protein] Stat Lab 05/08/24 22:06 Completed Complete Blood Count Auto Diff Stat Lab 05/08/24 22:06 Completed Comprehensive Metabolic Panel Stat Lab 05/08/24 22:06 Completed Diarrhea 6-11 Panel, Cdiff PCR Stat Lab 05/09/24 01:20 Completed ESR [Erythrocyte Sedimentation Rate] Stat Lab 05/08/24 22:06 Completed HIV (1&2) Antibody Rapid Stat Lab 05/08/24 22:06 Completed Hemoglobin A1C Stat Lab 05/08/24 22:06 Completed Hep C Ab with Reflex to RNA Stat Lab 05/08/24 22:06 Received Lactic Acid Stat Lab 05/08/24 22:06 Completed Lipase Stat Lab 05/08/24 22:06 Completed Lipid Panel Stat Lab 05/08/24 22:06 Completed Magnesium Stat Lab 05/08/24 22:06 Completed PT INR [Prothrombin Time INR] Stat Lab 05/08/24 22:06 Completed PTT [Activated Partial Thrombo Time] Stat Lab 05/08/24 22:06 Completed Triglycerides Stat Lab 05/08/24 22:06 Completed Troponin I Q3H Lab 05/09/24 00:35 Completed Troponin I Q3H Lab 05/09/24 04:20 Completed Troponin I Stat Lab 05/08/24 22:06 Completed Medical Decision Narrative: 29-year-old male history of chronic abdominal pain, hypertension presenting with abdominal pain and vomiting. Patient states that he has these episodes where he vomits for no apparent reason for a day or 2 every few months. This episode started 4 days prior to this. Nonbloody, nonbilious vomit and stool. He states that vomit and stool are in oranges color, though. No fevers or chills, urinary symptoms. States that he has been seen by gastroenterology in the past, unable to figure out why this is happening. Takes Bentyl and Protonix daily. Currently having periumbilical pain that feels like my guts are twisting. Does not radiate. History was obtained via conversation with patient. On arrival, patient hemodynamically stable, alert, oriented x4, appropriate, GCS 15, moving all extremities spontaneously, pupils equal and reactive to light. Full physical exam performed and significant for hypertensive, tachycardic, uncomfortable appearing male holding vomitus bag. Abdomen is soft, mildly tender in periumbilical region, but not peritonitic. Normal bowel sounds. Cardiopulmonary exam normal. Negative Crenshaw sign and negative McBurney's point tenderness. Differential includes gastritis, gastroenteritis, malabsorption, pancreatitis, PUD, ACS, among others. Patient placed on continuous cardiac monitoring and continuous pulse ox with initial blood pressure 149/106, heart rate 103, saturation 97% on room air. Patient was given Phenergan, Toradol for symptomatic management and correction of underlying abnormalities. Workup independently interpreted and significant for mild leukocytosis, otherwise nonactionable labs.. CT scan performed 2 days prior to this with enteritis, no other acute abnormalities. I feel the risk of radiation outweighs the potential benefit given negative abdominal exam. See radiology read for further interpretation. Bedside [id number] ultrasound performed, this demonstrated normal gallbladder. lots of bowel gas. Patient tolerated some p.o. intake here. Able to keep down acetaminophen as well. GI cocktail administered. Dilaudid also given. 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 [employer]ellite [employer] Operator disclaimer Much of this encounter note is an electronic balancing machine operator spoken language to printed text. Electronic balancing machine operator of the spoken language may permit errors. Although I have reviewed the note, some errors may still exist. Lobo: Upon my assumption of care patient continues to have discomfort. Labs are very reassuring today and on his recent workups in the last 2 days. I do not believe repeat imaging is indicated at this time. Patient continued having symptoms, multiple additional medications were administered in an attempt to control his symptoms. None of these were successful. Patient received D5 in hopes of breaking a likely cycle of ketosis and to assist in his symptoms. At this time I believe he requires admission to the hospital for intractable abdominal pain, nausea, vomiting. I discussed this case with Dr. Draper. He agrees with the plan for admission, he recommended Flagyl for empiric administration since patient has developed more of a leukocytosis until infection has been fully ruled out. He agrees with the plan for diarrhea panel. He graciously accepted the patient for admission. Patient admitted in stable condition Critical Care <Roscoe Mcgee MD - Last Filed: 05/08/24 23:13> Critical Care Time Critical Care Time: No
[2024-05-08 22:23] LABS: Albumin Level 4.3 g/dl (3.5-5.0); Chloride 109 mmol/L (98-107)
[2024-05-08 22:24] LABS: Potassium 3.7 mmoL/L (3.5-5.1); Sodium 139 mmol/L (136-145)
[2024-05-08 22:26] LABS: Alanine Aminotransferase 40 U/L (12-78); Albumin/Globulin Ratio 1.3 (1.1-1.8); Alkaline Phosphatase 64 U/L (38-126); Anion Gap 14.7 mEq/L (5-15); Aspartate Amino Transferase 35 U/L (17-59); Bilirubin,Total 1.1 mg/dl (0.2-1.3); Blood Urea Nitrogen 13 mg/dl (9-20); Calcium 9.3 mg/dl (8.4-10.2); Carbon Dioxide 19 mmol/L (22.0-30.0); Creatinine Clearance Estimated 166 mL/min (50-200); Estimated Glomerular Filt Rate 116 ml/min (>60); GFR (African American) 140 ML/MIN (>60); Globulin 3.4 g/dL (1.3-3.2); Glucose 122 mg/dl (74-100); Lactic Acid 1.4 mmol/L (0.7-2.1); Total Protein,Serum 7.7 g/dl (6.3-8.2)
[2024-05-08 22:27] LABS: Activated Partial Thrombo Time 29.3 seconds (22.8-30.6); Cholesterol 185 mg/dl (140-200); Lipase 52 U/L (23-300); Magnesium 1.6 mg/dl (1.6-2.3); Triglycerides 241 mg/dl (30-150); Triglycerides 242 mg/dl (30-150); VLDL Cholesterol 48 mg/dL (0-40)
[2024-05-08 22:28] LABS: Chol/HDL Ratio 7.1 (1-3.5); HDL Cholesterol 26 mg/dl (40-60); INR 0.97 (0.9-1.1); Prothrombin Time 10.9 seconds (10.1-12.5)
[2024-05-08 22:32] LABS: C-Reactive Protein 11.3 mg/L (0-4)
[2024-05-08 22:38] LABS: Direct LDL Cholesterol 125.09 mg/dL (100-129); Troponin I < 0.01 ng/ml (0.00-0.034)
[2024-05-08 22:39] LABS: Erythrocyte Sedimentation Rate 1 mm/hr (0-15)
[2024-05-08] MEDS: HYDROMORPHONE 2MG/ML SYRINGE 0.5 MG IV (23:05)
[2024-05-08] MEDS: BELLADONNA ALKALOIDS 60 ML ML PO (23:05)
[2024-05-08] MEDS: ALUMINUM/MAGNESIUM/SIMETHICONE 30ML UDC 30 ML PO (23:16)
[2024-05-08] MEDS: DICYCLOMINE 10MG CAPSULE 10 MG PO (23:35)
[2024-05-08] MEDS: PROCHLORPERAZINE 10MG/2ML VIAL 10 MG IV (23:58)
[2024-05-08] MEDS: DEXTROSE 5% IN WATER 250ML 500 ML IV (23:58)
[2024-05-08] MEDS: METRONIDAZ/SOD CHL 500 MG/100 ML PIGGYBACK 100 MG IV (23:58)
[2024-05-09] VITALS (7 sets, daily range): BP systolic 104–153; BP diastolic 61–87; PULSE 83–92; RESP 16–18; TEMP 36.6–37.2; O2SAT 96–100; BMI 39.7
--- NOTE | 2024-05-09 00:10 | PC.NURSE ---
report called to FRIEDA Aguirre
--- NOTE | 2024-05-09 00:19 | PC.NURSE ---
Pt arrived to floor via wheelchair from ED at 0018.
[2024-05-09 01:06] LABS: Troponin I < 0.01 ng/ml (0.00-0.034)
[2024-05-09 01:28] LABS: Adenovirus F 40/41, stool Not Detected (NotDetected); Astrovirus Not Detected (NotDetected); Campylobacter Not Detected (NotDetected); Clostridium Difficile A/B, PCR Not Detected (NotDetected); Cryptosporidium Not Detected (NotDetected); Cyclospora Cayetanesis Not Detected (NotDetected); Entamoeba histolytica Not Detected (NotDetected); Enteroaggregative E coli Not Detected (NotDetected); Enterotoxigenic E coli Not Detected (NotDetected); Giardia lamblia Not Detected (NotDetected); Norovirus Not Detected (NotDetected); Plesimonas Shigalloides, PCR Not Detected (NotDetected); Rotavirus A Not Detected (NotDetected); Salmonella, PCR Not Detected (NotDetected); Sapovirus Not Detected (NotDetected); Shiga-like toxin E coli Not Detected (NotDetected); Shigella Enterovasive E coli Not Detected (NotDetected); Vibrio Cholerae Not Detected (NotDetected); Vibrio, PCR Not Detected (NotDetected); Yersinia Entercolitica, PCR Not Detected (NotDetected)
[2024-05-09 03:26] LABS: Enteropathogenic E coli Detected (NotDetected)
--- NOTE | 2024-05-09 04:24 | PC.NURSE ---
29 yo male pt admitted to the floor with uncontrolled abdominal pain, N/V/D. Stool sample obtained and sent for diarrhea panel. Upon arrival to floor pt reported pain and continued nausea however, he did go to sleep and was able to rest the remainder of shift. VS not obtained at 4 am to allow pt to rest. It was given in report from ER nurse that pt has been in the ER the past 3 days due to the same complaints. . Pt is able to ambulate to BR without assist, at bedside.
[2024-05-09 04:34] LABS: HIV (1&2) Antibody Rapid NONREACTIVE (NONREACTIVE)
[2024-05-09 04:54] LABS: Troponin I < 0.01 ng/ml (0.00-0.034)
--- NOTE | 2024-05-09 08:49 | EXP.HP ---
History of Present Illness *Admission Date: 05/08/24 *Reason for visit:: Abd pain, vomiting and diarrhea *History of present illness: Mr. Lopez is a 29 year old male patient of [facility], who has presented to [facility] ER last night for the third time in three days complaining of abdominal pain, vomiting and diarrhea. He states his symptoms started fairly suddenly three days ago. Pain is al over his abdomen, emesis consists of ingested food and drink and his stool has been brown and watery. He had a CT scan done during his first ER visit, which was consistent with enteritis. He has taken numerous medications to control his symptoms but none have worked very well. He denies recent sick contacts and travel. Diet has not changed. [facility] Disclaimer: The information contained in this section may have been updated after the patient was seen, as this information can be updated by other users. 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 (Updated 05/09/24 @ 08:56 by Karsten Draper MD) Vitamin D deficiency GERD (gastroesophageal reflux disease) Hypertension Depression Anxiety Post-concussional syndrome Head injury due to trauma Strep throat Abdominal pain Sprain of right foot Exposure to COVID-19 virus Surgical History No significant past surgical history Family History No significant family history Social History Smoking Status: Never smoker alcohol intake: never current occupational status: employed Travel in the last 8 weeks: None Other 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 Have you received the Flu Vaccine for this season: No Have you received the Pneumonia Vaccine: No Review of Systems Constitutional Constitutional: Denies chills and Denies fever(s) ENT Ears, Nose, Mouth, and Throat: Denies dizziness *Cardiovascular Cardiovascular: Denies chest pain and Denies dyspnea *Respiratory Respiratory: Denies dyspnea *Gastrointestinal Gastrointestinal: Reports as per HPI *Genitourinary Genitourinary: Denies difficulty urinating *Musculoskeletal Musculoskeletal: Denies arthralgias *Neurologic Neurologic: Denies dizziness Meds Home Medications and Allergies Home Medications ?Medication ?Instructions ?Recorded ?Confirmed ?Type duloxetine 60 mg capsule,delayed 60 mg PO BID 01/09/24 05/09/24 History release pantoprazole 40 mg tablet,delayed 40 mg PO DAILY 01/09/24 05/09/24 History release clomiphene citrate 50 mg tablet 50 mg PO Q48H 05/09/24 05/09/24 History (Clomid) dicyclomine 20 mg tablet 20 mg PO QID 05/09/24 05/09/24 History famotidine 20 mg tablet 20 mg PO BID 05/09/24 05/09/24 History irbesartan 300 mg tablet 300 mg PO DAILY 05/09/24 05/09/24 History ondansetron 4 mg disintegrating 4 mg PO Q8HP PRN nausea and 05/09/24 05/09/24 History tablet vomiting New Prescriptions to Start Prescriptions: Allergies Allergy/AdvReac Type Severity Reaction Status Date / Time No Known Allergies Allergy Verified 04/13/24 08:49 Exam Data for Last 24 hours Vital signs and Labs for Last 24 Hours: Temp Pulse Resp BP Pulse Ox O2 Del Method 98.9 F 90 18 153/87 H 96 Room Air 05/09/24 07:58 05/09/24 07:58 05/09/24 07:58 05/09/24 07:58 05/09/24 07:58 05/09/24 07:58 Laboratory Results - last 24 hr 05/08/24 22:06: WBC 14.4 H D, RBC 5.85, Hgb 15.8, Hct 47.7, MCV 81.7, MCH 27.1, MCHC 33.2, RDW 14.2, Plt Count 397, MPV 6.9 L, Neut % (Auto) 58.3, Lymph % (Auto) 32.7, [place] % (Auto) 6.0, Eos % (Auto) 2.3, Baso % (Auto) 0.7, Neut # (Auto) 8.4 H, Lymph # (Auto) 4.7 H, [place] # (Auto) 0.9, Eos # (Auto) 0.3, Baso # (Auto) 0.1, ESR 1, PT 10.9, INR 0.97, APTT 29.3, Sodium 139, Potassium 3.7, Chloride 109 H, Carbon Dioxide 19 L, Anion Gap 14.7, BUN 13, Creatinine 0.80, Estimated Creat Clear 166, Estimated GFR 116, Est GFR ( Amer) 140, Glucose 122 H, Hemoglobin A1c 6.0, Lactate 1.4, Calcium 9.3, Magnesium 1.6, Total Bilirubin 1.1, AST 35, ALT 40, Alkaline Phosphatase 64, Troponin I < 0.01, C-Reactive Protein 11.3 H, Total Protein 7.7, Albumin 4.3, Globulin 3.4 H, Albumin/Globulin Ratio 1.3, Triglycerides 241 H 05/08/24 22:06: Triglycerides 242 H, Cholesterol 185, LDL Cholesterol Direct 125.09, VLDL Cholesterol 48 H, HDL Cholesterol 26 L, Cholesterol/HDL Ratio 7.1 H, Lipase 52 05/09/24 00:35: Troponin I < 0.01, HIV 1&2 Antibody Rapid Nonreactive 05/09/24 01:20: Stl Aeromonas (PCR) Not detected, Stl C. cayetanensis PCR Not detected, Stool Rotavirus (PCR) Not detected, Stl Adenov F 40/41 PCR Not detected, Stool Astrovirus (PCR) Not detected, Stool Campylobacter PCR Not detected, Stl C.difficile Tox PCR Not detected, Stool Cryptosporidium PCR Not detected, Stl E.coli Shiga Tox PCR Not detected, Stool E coli O157 PCR Not detected, Stl Enterotoxigenic E PCR Not detected, Stool EPEC (PCR) Detected A, Stool EAEC (PCR) Not detected, Stl E. histolytica PCR Not detected, Stool Giardia Lamblia PCR Not detected, Stool Salmonella PCR Not detected, Stool Sapovirus (PCR) Not detected, Stl P. shigelloides PCR Not detected, Stl Shigella/EIEC PCR Not detected, St Y.enterocolitica PCR Not detected, Stool Vibrio (PCR) Not detected, Stl Vibrio cholerae PCR Not detected, Stl Norovirus GI/GII PCR Not detected 05/09/24 04:20: Troponin I < 0.01 I & O for Last 24 hours: Intake & Output 05/06/24 05/07/24 05/08/24 05/09/24 23:59 23:59 23:59 23:59 Weight 340 lb 320 lb 0.015 oz Constitutional Constitutional: no acute distress *Routine HEENT Exam Head: Present normocephalic Eye: Present EOMI and PERRL ENT: Present mucous membranes moist *Routine Neck Exam Neck: Present supple; Absent lymphadenopathy *Routine Respiratory Exam Respiratory: Present CTA bilaterally *Routine Cardiovascular Exam Cardiovascular: Present RRR *Routine Abdominal Exam Abdominal: Present soft, normoactive bowel sounds, tenderness (diffusely tender to deep palpation) and obese; Absent guarding, rigid or mass *Routine Rectal Exam Rectal:: deferred *Routine Genitalia Exam Genitalia:: deferred *Routine Extremities Exam Extremities: Absent cyanosis, clubbing or edema *Routine Skin Exam Skin: Present warm; Absent rash *Routine Neurological Exam Neurological: Present alert and oriented X3 Assessment and Plan *Assessment and plan (1) Enteropathogenic Escherichia coli infection: Status: Acute Category: Medical Code(s): A04.0 - Enteropathogenic Escherichia coli infection (2) Abdominal pain: Status: Acute Category: Medical Code(s): R10.9 - Unspecified abdominal pain (3) Nausea & vomiting: Status: Acute Category: Medical Code(s): R11.2 - Nausea with vomiting, unspecified (4) Diarrhea: Status: Acute Category: Medical Code(s): R19.7 - Diarrhea, unspecified Plan Patient admitted for further evaluation and management. Stool PCR panel shows EPEC infection. Will change antibiotic treatment to Azithromycin today, continue supportive care. Start clear liquids.
--- NOTE | 2024-05-09 08:50 | HMH.PHAINT1 ---
Pharmacy Intervention Comments: MEDICATION RECONCILIATION COMPLETED ON PATIENT USING EXTERNAL FILL HISTORY FROM PHARMACY AND UROLOGY VISIT NOTE. -CRISTIAN BROCK, HERNAND
[2024-05-09] MEDS: IRBESARTAN 300MG TABLET 300 MG PO (09:33)
[2024-05-09] MEDS: AZITHROMYCIN 500 MG in 0.9 % SODIUM CHLORIDE 250 ML 250 MG IV (09:33)
[2024-05-09] MEDS: FAMOTIDINE 20MG TABLET 20 MG PO ×2 (09:33→20:07)
[2024-05-09] MEDS: ONDANSETRON 4MG ODT 4 MG PO (09:35)
[2024-05-09] MEDS: D5W/0.45% NaCl w/20mEq KCL 1,000 ML 50 ML IV (10:30)
--- NOTE | 2024-05-09 17:28 | PC.NURSE ---
Pt alert and oriented x4. Pt c/o nausea one time this shift and was medicated per MAR. Pt has had no complaints of nausea since. Pt tolerating clear liquid diet well. Pt has had a few loose stools this afternoon. no c/o abdominal pain this shift. Pt up to bedside chair with family, no complaints at this time.
[2024-05-09] MEDS: ACETAMINOPHEN 325MG TAB 650 MG PO (18:20)
[2024-05-10 04:00] VITALS: BP 126/66; PULSE 76; RESP 16; TEMP 36.5; O2SAT 97; BMI 40.3
--- NOTE | 2024-05-10 04:30 | PC.NURSE ---
Patient is alert and oriented x4. Patient was observed to have eyes closed, respirations even and unlabored on room air, and no apparent distress throughout the night. Patient's remained at bedside. Dr Draper paged me at around 20:30 yesterday evening to check in on the patient. Updates were given and new orders were received; simethicone (chewable tablet) and an advancement to a full liquid diet were initiated this shift. Thus far, patient has not asked for any PRN medications. Patient continued to report having frequent loose stools and mild internal abdominal pain. Patient has not complained of any nausea or vomiting thus far this shift. Patient has been tolerating the previous clear liquid diet, and was given a chocolate pudding and a vanilla pudding cup for the diet advancement; patient tolerated this as well. He has not had any further complaints this shift. Upon auscultation, his bowel sounds were very active, S1/S2 heart sounds could be heard, and lung sounds were clear. Patient has been ambulating independently to/from the bathroom and in his room; patient self-turns in bed. He has received his scheduled medications per SEP. A bag of D5W/0.45% NaCl w/ 20 meq KCl is still currently infusing at 50 mL/hr. Vital signs have remained stable this shift. At this time, he is currently resting supine in bed. No acute changes noted thus far. Call light within reach.
[2024-05-10] MEDS: D5W/0.45% NaCl w/20mEq KCL 1,000 ML 50 ML IV (05:30)
--- NOTE | 2024-05-10 07:51 | EXP.ACUTE.PN ---
Subjective *Date: 05/10/24 *Time: 07:51 Interval history: Patient feels better this morning. He is tolerating a full liquid diet, still having some diarrhea. Medical Exam Vital signs and Labs for Last 24 Hours: Vital Signs Temp Pulse Resp BP Pulse Ox O2 Del Method 05/10/24 06:40 Room Air 05/10/24 05:00 Room Air 05/10/24 04:00 97.7 F 76 16 126/66 97 Room Air 05/10/24 03:00 Room Air 05/10/24 01:00 Room Air 05/09/24 23:00 Room Air 05/09/24 21:00 Room Air 05/09/24 20:00 83 16 97 Room Air 05/09/24 19:38 98.0 F 83 16 129/61 97 Room Air 05/09/24 18:31 Room Air 05/09/24 17:00 Room Air 05/09/24 16:00 98 F 90 17 119/64 100 Room Air 05/09/24 15:00 Room Air 05/09/24 13:00 Room Air 05/09/24 11:00 Room Air 05/09/24 09:00 Room Air 05/09/24 08:00 Room Air 05/09/24 07:58 98.9 F 90 18 153/87 H 96 Room Air Intake and Output 05/09/24 05/09/24 05/10/24 15:59 23:59 07:59 Intake Total 550 / 1768 460 / 1768 758 / 758 Output Total 0 / 0 0 / 0 0 / 0 Balance 550 / 1768 460 / 1768 758 / 758 Intake: Intake, Oral Amount 550 / 1210 460 / 1210 200 / 200 Infusion Intake 558 / 558 D5W/0.45% NaCl w/20mEq KCL 1, 558 / 558 000 ml @ 50 mls/hr IV .Q20H [facility] Rx#:[id number] Output: Output, Urine Amount 0 / 0 0 / 0 0 / 0 Other: Number of Unmeasured Voids 1 Number of Bowel Movements 1 1 Weight 324 lb 3.2 oz Patient Weight 05/10/24 23:59 Weight 324 lb 3.2 oz I & O for Labs for Last 24 Hours: Intake & Output 10/10/24 10/11/24 10/12/24 10/13/24 23:59 23:59 23:59 23:59 Intake Total 1010 / 1768 758 / 758 Output Total 0 / 0 0 / 0 Balance 1010 / 1768 758 / 758 Weight 340 lb 320 lb 0.015 oz 324 lb 3.2 oz Constitutional: Present no acute distress Respiratory: Present normal respiratory effort Cardiac: Present Reg Rate and Rhythm GI: Present normal bowel sounds; Absent tenderness Extremities: Present normal inspection and full ROM Skin: Present intact; Absent erythema Neuro: Present Grossly Intact and moves all extremities Assessment and Plan *Assessment and plan (1) Enteropathogenic Escherichia coli infection: Status: Acute Category: Medical Code(s): A04.0 - Enteropathogenic Escherichia coli infection (2) Abdominal pain: Status: Acute Category: Medical Code(s): R10.9 - Unspecified abdominal pain (3) Nausea & vomiting: Status: Acute Category: Medical Code(s): R11.2 - Nausea with vomiting, unspecified (4) Diarrhea: Status: Acute Category: Medical Code(s): R19.7 - Diarrhea, unspecified Plan Patient has improved. Plan to discharge home today after his Zithromax dose, will continue Zithromax by mouth for 3 more days. Plan office f/u in 5 days.
[2024-05-10] MEDS: IRBESARTAN 300MG TABLET 300 MG PO (08:02)
[2024-05-10] MEDS: AZITHROMYCIN 500 MG in 0.9 % SODIUM CHLORIDE 250 ML 250 MG IV (08:02)
[2024-05-10] MEDS: FAMOTIDINE 20MG TABLET 20 MG PO (08:02)
--- NOTE | 2024-05-10 10:50 | P.DS_ITS ---
General Admission date:: 05/09/24 Discharge date: 05/10/24 HPI HPI HPI: Mr. Lopez is a 29 year old male patient of [facility], who has presented to [facility] ER last night for the third time in three days complaining of abdominal pain, vomiting and diarrhea. He states his symptoms started fairly suddenly three days ago. Pain is al over his abdomen, emesis consists of ingested food and drink and his stool has been brown and watery. He had a CT scan done during his first ER visit, which was consistent with enteritis. He has taken numerous medications to control his symptoms but none have worked very well. He denies recent sick contacts and travel. Diet has not changed. Hospital Course Hospital Course Hospital Course: On admission patient was given IV fluids. He was initially started on metronidazole and this was changed to Zithromax. Stool was noted positive for E. coli. Nausea and pain management were initiated. He was started on clear liquids which he tolerated well and diet was advanced. By the p.m. of admission he was feeling better. The following day on 05/10/2024 he was tolerating a full liquid diet. He continue to have some diarrhea but otherwise was feeling much better. He was stable to be discharged. He was to continue with p.o. Zithromax for 3 more days and to follow-up in the office of [facility] in 5 days. Exam Data for Last 24 hours Vital signs and Labs for Last 24 Hours: Temp Pulse Resp BP Pulse Ox O2 Del Method 97.7 F 76 16 126/66 97 Room Air 05/10/24 04:00 05/10/24 04:00 05/10/24 04:00 05/10/24 04:00 05/10/24 04:00 05/10/24 09:00 I & O for Last 24 hours: Intake & Output 05/07/24 05/08/24 05/09/24 05/10/24 11:59 11:59 11:59 11:59 Intake Total 0 / 0 2868 / 2868 Output Total 0 / 0 Balance 0 / 0 2868 / 2868 Weight 320 lb 0.015 oz 324 lb 3.2 oz Narrative: Constitutional: Present no acute distress Respiratory: Present normal respiratory effort Cardiac: Present Reg Rate and Rhythm GI: Present normal bowel sounds; Absent tenderness Extremities: Present normal inspection and full ROM Skin: Present intact; Absent erythema Neuro: Present Grossly Intact and moves all extremities Results Data Completed and Pending Completed studies during hospitalization [Text1]: 05/06/2024 CT abd/pelvis FINDINGS: CT OF THE ABDOMEN AND PELVIS WITH CONTRAST Axial CT images of the abdomen and pelvis were obtained after the administration of oral and iv contrast. Coronal reformatted images were also obtained and reviewed.This study was performed with techniques to keep radiation doses as low as reasonably achievable (ALARA). Individualized dose reduction techniques using automated exposure control or adjustment of mA and/or kV according to the patient's size were employed. Abdomen: The lung bases are clear. The heart is normal in size. There is mild fatty and felt patient of the liver. The spleen is unremarkable. No adrenal mass is present. The pancreas has an unremarkable appearance. The kidneys are normal, without evidence of mass or hydronephrosis. The aorta is normal in caliber. There are multiple fluid-filled bowel loops which are nonspecific and worrisome for enteritis. Multiple mildly enlarged mesenteric lymph nodes are seen and were present on the prior exam. These are favored to be reactive. No mass or abnormal fluid collection is seen. Pelvis: The appendix normal. The urinary bladder is unremarkable. No inflammatory process is seen. There is no evidence of mass or adenopathy. There is no evidence of bowel obstruction. IMPRESSION: Findings worrisome for enteritis. 05/08/24 22:06: WBC 14.4 H D, RBC 5.85, Hgb 15.8, Hct 47.7, MCV 81.7, MCH 27.1, MCHC 33.2, RDW 14.2, Plt Count 397, MPV 6.9 L, Neut % (Auto) 58.3, Lymph % (Auto) 32.7, [place] % (Auto) 6.0, Eos % (Auto) 2.3, Baso % (Auto) 0.7, Neut # (Auto) 8.4 H, Lymph # (Auto) 4.7 H, [place] # (Auto) 0.9, Eos # (Auto) 0.3, Baso # (Auto) 0.1, ESR 1, PT 10.9, INR 0.97, APTT 29.3, Sodium 139, Potassium 3.7, Chloride 109 H, Carbon Dioxide 19 L, Anion Gap 14.7, BUN 13, Creatinine 0.80, Estimated Creat Clear 166, Estimated GFR 116, Est GFR ( Amer) 140, Glucose 122 H, Hemoglobin A1c 6.0, Lactate 1.4, Calcium 9.3, Magnesium 1.6, Total Bilirubin 1.1, AST 35, ALT 40, Alkaline Phosphatase 64, Troponin I < 0.01, C-Reactive Protein 11.3 H, Total Protein 7.7, Albumin 4.3, Globulin 3.4 H, Albumin/Globulin Ratio 1.3, Triglycerides 241 H 05/08/24 22:06: Triglycerides 242 H, Cholesterol 185, LDL Cholesterol Direct 125.09, VLDL Cholesterol 48 H, HDL Cholesterol 26 L, Cholesterol/HDL Ratio 7.1 H , Lipase 52 05/09/24 00:35: Troponin I < 0.01, HIV 1&2 Antibody Rapid Nonreactive 05/09/24 01:20: Stl Aeromonas (PCR) Not detected, Stl C. cayetanensis PCR Not detected, Stool Rotavirus (PCR) Not detected, Stl Adenov F 40/41 PCR Not detected, Stool Astrovirus (PCR) Not detected, Stool Campylobacter PCR Not detected, Stl C.difficile Tox PCR Not detected, Stool Cryptosporidium PCR Not detected, Stl E.coli Shiga Tox PCR Not detected, Stool E coli O157 PCR Not detected, Stl Enterotoxigenic E PCR Not detected, Stool EPEC (PCR) Detected A, Stool EAEC (PCR) Not detected, Stl E. histolytica PCR Not detected, Stool Giardia Lamblia PCR Not detected, Stool Salmonella PCR Not detected, Stool Sapovirus (PCR) Not detected, Stl P. shigelloides PCR Not detected, Stl Shigella/EIEC PCR Not detected, St Y.enterocolitica PCR Not detected, Stool Vibrio (PCR) Not detected, Stl Vibrio cholerae PCR Not detected, Stl Norovirus GI/GII PCR Not detected 05/09/24 04:20: Troponin I < 0.01 DS: Diagnosis Discharge Diagnosis (1) Enteropathogenic Escherichia coli infection: Status: Acute Code(s): A04.0 - Enteropathogenic Escherichia coli infection (2) Abdominal pain: Status: Acute Code(s): R10.9 - Unspecified abdominal pain (3) Nausea & vomiting: Status: Acute Code(s): R11.2 - Nausea with vomiting, unspecified (4) Diarrhea: Status: Acute Code(s): R19.7 - Diarrhea, unspecified Meds Home Medications and Allergies Home Medications ?Medication ?Instructions ?Recorded ?Confirmed ?Type duloxetine 60 mg capsule,delayed 60 mg PO BID 01/09/24 05/09/24 History release pantoprazole 40 mg tablet,delayed 40 mg PO DAILY 01/09/24 05/09/24 History release clomiphene citrate 50 mg tablet 50 mg PO Q48H 05/09/24 05/09/24 History (Clomid) dicyclomine 20 mg tablet 20 mg PO QID 05/09/24 05/09/24 History famotidine 20 mg tablet 20 mg PO BID 05/09/24 05/09/24 History irbesartan 300 mg tablet 300 mg PO DAILY 05/09/24 05/09/24 History ondansetron 4 mg disintegrating 4 mg PO Q8HP PRN nausea and 05/09/24 05/09/24 History tablet vomiting azithromycin 500 mg tablet 500 mg PO DAILY 3 days #3 tabs 05/10/24 Rx (Zithromax TRI-LUNA) New Prescriptions to Start Prescriptions: azithromycin [Zithromax TRI-LUNA] Karsten Draper Allergies Allergy/AdvReac Type Severity Reaction Status Date / Time No Known Allergies Allergy Verified 04/13/24 08:49 Discharge Plan Disposition Patient Disposition: Home, Self-Care Condition: Good Follow up Plan Prescriptions/Medication Reconciliation: New azithromycin [Zithromax TRI-LUNA] 500 mg tablet 500 mg PO DAILY 3 Days Qty: 3 0RF Continued pantoprazole 40 mg tablet,delayed release (DR/EC) 40 mg PO DAILY duloxetine 60 mg capsule,delayed release(DR/EC) 60 mg PO BID famotidine 20 mg tablet 20 mg PO BID dicyclomine 20 mg tablet 20 mg PO QID irbesartan 300 mg tablet 300 mg PO DAILY clomiphene citrate [Clomid] 50 mg tablet 50 mg PO Q48H ondansetron 4 mg tablet,disintegrating 4 mg PO Q8HP PRN (Reason: nausea and vomiting) Problem Reconciliation Problems Reviewed?: Yes Patient Discharge Instructions ACTIVITY: Continue current activity DIET: advance to your usual diet Additional Instructions: [place], soft diet for the next 3 days Patient Instructions: DI for Abdominal Pain-Adult, DI for Vomiting -- Adult Print Language: Thai Providers Primary Care Provider: Karsten Draper Admit Provider: Karsten Draper Attending Provider: Karsten Draper
[2024-05-10 11:11] LABS: HCV Ab Non Reactive (Non Reactive)
--- NOTE | 2024-05-12 11:54 | CARE MANAGER ---
Unable to reach patient via phone to discuss recent discharge. Call attempted X 2 and VM left with call back information.
== END 2024-05-10 09:29 | disposition home or self-care (01) ==
LOC: ER 23:52 → 2ND 05-09 00:20
PROVIDERS: Emergency Medicine; Admitting Provider Family Medicine; Emergency Provider Emergency Medicine; PCP Family Medicine; Visit Provider Family Medicine
DX: A04.0 Enteropathogenic Escherichia coli infection (principal); Z79.899 Other long term (current) drug therapy; E55.9 Vitamin D deficiency, unspecified; R10.9 Unspecified abdominal pain; R11.2 Nausea with vomiting, unspecified
CPT/HCPCS: 36415; 80053; 80061; 83036; 83605; 83690; 83735; 84478; 84484; 85025; 85610; 85651; 85730; 86140; 86803; 87389; 87506; 99285; G0378; J0456; J0780; J1171; J1885; J2550; J7050; J7060; Q0162

== ENCOUNTER 2024-07-02 20:06 | Outpatient (CLI) | payer BC, SELFPAY ==
[2024-07-03 02:32] LABS: Semen Viscosity Normal (Normal)
[2024-07-03 02:33] LABS: 3Hr Motility Quality Rapid Progression (Mod-Rapid); 3Hr Sperm Motility 50 % (50-60); Motility Quality Rapid Progression (Mod-Rapid); PH,Semen 8.5 (7.3-8.3); Sperm Count 13925 mil/mm3 (20-160); Sperm Motility 75 % (50-90); WBCs,Semen Negative
[2024-07-03 05:44] LABS: Sperm Morphology Normal (Normal)
== END 2024-07-02 23:59 | disposition home or self-care (01) ==
LOC: LAB.DROPOF 20:06
PROVIDERS: PCP Obstetrics & Gynecology; Visit Provider Obstetrics & Gynecology
DX: N46.9 Male infertility, unspecified (principal)
CPT/HCPCS: 89320

== ENCOUNTER 2024-10-08 18:02 | Outpatient (CLI) | payer BC, SELFPAY ==
[2024-10-08 20:34] LABS: Coronavirus 19, PCR Not Detected (NotDetected); Human Rhinovirus Not Detected (NotDetected); Influenza B, PCR Not Detected (NotDetected); Respiratory Syncytial Virus Not Detected (NotDetected)
[2024-10-09 04:16] LABS: Influenza A, PCR Detected (NotDetected)
== END 2024-10-08 23:59 | disposition home or self-care (01) ==
LOC: LAB.DROPOF 10-09 11:57
PROVIDERS: PCP Nurse Practitioner; Visit Provider Nurse Practitioner
DX: J09.X9 Influenza due to identified novel influenza A virus with other manifestations (principal); R52 Pain, unspecified
CPT/HCPCS: 87631

== ENCOUNTER 2025-01-08 16:17 | Outpatient (CLI) | payer BC, SELFPAY ==
--- OUTSIDE RECORDS SUMMARY | 2024-11-30 13:00 | XMS_ITS ---
Author Organization Jen Address [address] [facility] [address] [place] [id number] Care Team Providers Care Vocational Teacher Name Role Phone Bonny Karsten Unavailable [phone] Allergies No Known Allergies REASON FOR VISIT weight loss Medications Medication SIG (Take, Route, Frequency, Duration) Notes Start Date End Date Status Pantoprazole Sodium 40 MG 1 tablet Orall y Once a day for 30 day(s) Active Vitamin D3 1.25 MG (50692 UT) 1 capsule Orally Once a week 02/12/2024 Active DULoxetine HCl 60 MG 2 capsule Orally On ce a day for 30 day(s) 10/14/2023 Active Irbesartan 300 MG 1 tablet Orally Once a day 02/10/2024 Active Problems Problem Type SNOMED Code ICD Code Onset Dates Problem Status W/U Status Risk Notes Problem 61664499 Essential hypertension (I10) Active confirmed Problem 894173239 Gastroesophageal reflux disease, unspecified whether esophagitis present (K21.9) Active confirmed Problem 866040961 BMI 40.0-44.9, a dult (Z68.41) Active confirmed Vital Signs Weight 348.2 lbs 11/30/2024 Blood pressure systolic 160 mm Hg 12/01/19 25 Blood pressure diastolic 84 mm Hg 025 Heart Rate 104 /min 11/30/2024 Height 75 in 11/30/2024 BMI 43.52 kg/m2 11/30/2024 Encounters Encounter Location Date Provider Diagnosis Jen [address] [place] [id number] 11/30/2024 Karsten Draper Morbid obesity E66.0 1 ; Essential hypertension I10 ; Gastroesophageal reflux disease, unspecified whether esophagitis present K21.9 and BMI 40.0-44.9, adult Z68.41 Assessments Encounter Date Diagnosis (ICD Code) Assessment Notes Treatment Notes Treatment Clinical Notes Section Notes 11/30/2024 Morbid obesity (ICD-10 - E66.01) Discussed starting Wegovy 11/30/2024 Essential hypertension (ICD-10 - I10) 11/30/2024 Gastroesophageal reflux disease, unspecified whether esophagitis present (ICD-10 - K21.9) 11/30/2024 BMI 40.0-44.9, adult (ICD-10 - Z68.41) Plan Of Treatment Medication Medication Name Sig Start Date Stop Date Notes Pantoprazole Sodium 40 MG 1 tablet Orall y Once a day for 30 day(s) Irbesartan 300 MG 1 tablet Orally Once a day 02/10/2024 Treatment Notes Assessment Notes Morbid obesity Discussed starting W egbeverly Next Appt Details Follow Up: 2 Months fasting, Reason: Provider Name:Karsten potts, 01/08/2025 04:00:00 PM, [address] [facility] 36 [facility], [facility] [address], [place], [place], [phone], Provider Name:Karsten potts, 02/02/2025 09:00:00 AM, [address] [facility] 36 [facility], [facility] [address], [place], [place], [phone], Progress Notes * KASIA BEST ADOB:1995 (29 yo M)Acc No.[id number]:11/30/2024 Progress Notes Patient: KASIA STROUD Provider: Arina Draper M.D. :1995 A ge:29 Y S ex:Male Date:11/30/2024 Address:[address] [place], [place] [phone] Subjective: * Chief Complaints: * 1 . Weight loss. * HPI: C ardiology: 29 year old male presents with c/o Blood Pressure Elevated P t here to f/u on hypertension. Pt states he has not taken bp medication since due to forgetting to pick refill up. * ROS: D ERMATOLOGY: no R moira. n o H sergei. G ASTROENTEROLOGY: no N ausea. n o V omiting. U ROLOGY: no D ifficulty urinating. n o B lood in urine. * 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: I rritable Bowel Syndrome, Hypertension, Vitamin D deficiency. * Surgical History: D enies Past Surgical History. * Hospitalization/Major Diagno stic Procedure: H ER - Abdominal Pain w/ Vomiting 06/04/2023. * Family History: F ather: alive 56 yrs, diagnosed with Hypertension. M other: alive 55 yrs, diagnosed with Diabetes. 2 sister(s) - healthy. . * Social History: C URRENT TOBACCO USE: No . C affeine: yes, frequency: 2 to 3 pops daily. Home smoke detector use: yes. Marital Status: . Alcohol: no. Sexually active: yes. * Medications: T aking Irbesartan 300 MG Tablet 1 tablet Orally Once a day , Taking DULoxetine HCl 60 MG Capsule Delayed Release Particles 2 capsule Orally Once a day , Taking Vitamin D3 1.25 MG (98736 UT) Capsule 1 capsule Orally Once a week , Not-Taking Pantoprazole Sodium 40 MG Tablet Delayed Release 1 tablet Orally Once a day , Medication List reviewed and reconciled with the patient * Allergies: N .K.D.A. Objective: * Vitals: W t: 348.2, Temp: 97.8, BP: 160/84, HR: 104, Nurse: kiara, Ht: 75, BMI:43.52. * Examination: C ardiology: General Appearance: p leasant, NAD. HEENT: u nremarkable. Heart sounds: R RR, normal S1, S2. Lungs: c lear, no rales or wheezes. Extremities: n o leg edema. Peripheral pulses: 2 plus bilateral. ? Assessment: * Assessment: 1. M orbid obesity - E66.01 (Primary) 2 . E ssential hypertension - I10? 3. G astroesophageal reflux disease, unspecified whether esophagitis present - K21.9 4 . B VA 40.0-44.9, adult - Z68.41 Plan: * Treatment: 2. E ssential hypertension Continue Irbesartan Tablet, 300 MG, 1 tablet, Orally, Once a day. 3. G astroesophageal reflux disease, unspecified whether esophagitis present Refill Pantoprazole Sodium Tablet Delayed Release, 40 MG, 1 tablet, Orally, Once a day, 30 day(s), 30, Refills 5. * Procedure Codes: 3 077F SYST BP = 140 MM HG6 IT, 3079F DIAST BP 80-89 MM HG * Follow Up: 2 Months fasting * Billing Information: * Visit Code: 54209 Office Visit, Est Pt., Level 4. * Procedure Codes: 3077F SYST BP = 140 MM HG6 IT. 3079F DIAST BP 80-89 MM HG. * Electronic signature of Michelle Draper MD on 01/08/2025 at 04:20 PM EDT Sign off status: Pending * Provider: Arina Draper M.D. Date: 0 11/30/2024 Generated for Nelson hunter/Héctor/Rusty on: 0 01/08/2025 04:20 PM EDT History and Physical Notes * HPI (History of Present Illness) Category Sub-Category Detail Notes Category Not es Cardiology Blood Pressure Elevated Pt here to f/u on hypertension. Pt states he has not taken bp medication since due to forgetting to pick refill up Examination Category Sub-Category Detail Notes Category Not es Cardiology Lungs: clear, no rales or wheezes HEENT: unremarkable Heart sounds: RRR, normal S1, S2 Extremities: no leg edema Peripheral pulses: 2 plus bilateral General Appearance: pleasant, NAD
--- OUTSIDE RECORDS SUMMARY | 2025-01-01 11:45 | XMS_ITS ---
Author Organization [place]icia Address [address] [place] [phone] Care Team Providers Care Gas Pumping Station Helper Name Role Phone Karsten Draper Unavailable [phone] Allergies No Known Allergies REASON FOR VISIT back pain Medications Medication SIG (Take, Route, Frequency, Duration) Notes Start Date End Date Status dexAMETHasone 4 MG 1 tablet Orally twic a day for 5 days 01/01/2025 Active DULoxetine HCl 60 MG 2 capsule Orally On ce a day for 30 day(s) 10/14/2023 Active Wegovy 0.25 MG/0.5ML 0.5 mL Subcutaneous once a week for 30 days 12/02/2024 Active Irbesartan 300 MG 1 tablet Orally Once a day 02/10/2024 Active Cyclobenzaprine HCl 5 MG 1 or 2 tablets as needed Orally 3 times a day 01/01/2025 Active Pantoprazole Sodium 40 MG 1 tablet Orall y Once a day for 30 day(s) Active Vitamin D3 1.25 MG (96394 UT) 1 capsule Orally Once a week 02/12/2024 Active Vital Signs Weight 336.8 lbs 01/01/2025 Blood pressure systolic 150 mm Hg 01/02/20 25 Blood pressure diastolic 789 mm Hg 025 Heart Rate 99 /min 01/01/2025 Height 75 in 01/01/2025 BMI 42.09 kg/m2 01/01/2025 Encounters Encounter Location Date Provider Diagnosis [facility] [address] [place] [phone] 01/01/2025 Karsten Draper Acute midline low ba [...] MG 1 tablet Orally twic e a day for 5 days 01/01/2025 Cyclobenzaprine HCl 5 MG 1 or 2 tablets as needed Orally 3 times a day 01/01/2025 Treatment Notes Assessment Notes Acute midline low back pain, unspecified whether sciatica present heating pad to affected areas 2 to 3 zion es a day TENS unit OTC recommended Next Appt Details Follow Up: prn, Reason: Provider Name:Karsten potts, 01/08/2025 04:00:00 PM, 1210 [facility] 36 [facility], [facility] [address], [place], [place], [phone], Provider Name:Karsten potts, 02/02/2025 09:00:00 AM, [address], [facility] [address], [place], [place], [phone], Progress Notes * KASIA BEST ADOB:1995 (29 yo M)Acc No.[id number]:01/01/2025 Progress Notes Patient: KASIA STROUD Provider: Arina Draper M.D. :1995 A ge:29 Y S ex:Male Date:01/01/2025 Address:[address] [place], [place] [phone] Subjective: * Chief Complaints: * 1 . [...] Medications: T aking Vitamin D3 1.25 MG (82518 UT) Capsule 1 capsule Orally Once a [...] back: Inspection: n ormal curvature of spine. Palpation: b ilateral lower lumbar paraspinal spasms. Straight leg raising test: n egative bilaterally. Gait: s tands and moves slowly due to pain. ? Assessment: * Assessment: 1. A cute midline low back pain, unspecified whether sciatica present - M54.50 (Primary) ? Plan: * Treatment: * Follow Up: p rn * Billing Information: * Visit Code: 61531 Office Visit, Est Pt., Level 3. * Procedure Codes: * Electronic signature of Michelle Draper MD on 01/08/2025 at 04:19 PM EDT Sign off status: Pending * Provider: Arina Draper M.D. Date: 0 01/01/2025 Generated for Nelson hunter/Héctor/Rusty on: 0 01/08/2025 04:19 PM EDT History and Physical Notes * [...]
--- NOTE | 2025-01-08 | XR_ITS ---
PROCEDURE INFORMATION: Exam: XR Lumbosacral Spine Exam date and time: 01/08/2025 4:26 PM Age: 29 years old Clinical indication: Other: Acute midline low back pain TECHNIQUE: Imaging protocol: Radiologic exam of the lumbosacral spine. Views: 4 or 5 views. COMPARISON: CT ABDOMEN PELVIS W CON 05/06/2024 10:39 AM FINDINGS: Bones/joints: Vertebral body heights appear preserved without compression fractures. No acute posttraumatic osseous injury. No compression fractures. No significant degenerative changes. No significant intervertebral disc space narrowing. No spondylolisthesis or spondylolytic defect. Soft tissues: Paraspinal soft tissues appear within range of normal. IMPRESSION: No acute posttraumatic abnormality.
--- OUTSIDE RECORDS SUMMARY | 2025-01-08 16:19 | XMS_ITS | Data Portability ---
Author Organization [place] [facility] [place] [facility] Address [address] [place] [address] Care Team Providers Care Cutting Table Operator Name Role Phone LEIGH ANN YU Primary Care Provider Assessment Encounter Date Assessment Date Assessment LastModified by Organization Details LastModified Time 08/29/2023 08/29/2023 28-year-old male with episodes of intermittent foul-tasting burps, followed by immediate vomiting, followed by sharp epigastric pain: -Will perform EGD for further evaluation -Will prescribe pantoprazole 40 mg once daily PO at bedtime - Take PPI 30 minutes before eating for it to be effective - Elevation of head of the bed - Remain upright 2 to 3 hours after eating - Dietary modification: Avoidance of triggers such as fatty foods, caffeine, chocolate, spicy foods, food with high fat content, carbonated beverages, peppermint, acidic and citrus items - Avoidance of tight fitting garments - Promotion of salivation through oral lozenges/chewin g gum to neutralize refluxed acid - Avoidance of tobacco and alcohol Follow up after EGD [email or web address] Not available 08/30/2023 17:31:39 Plan of Treatment Reminders Order Date Submit Date Provider Last Modified By Organization Details Last Modified Time Details Appointments None recorded. Lab None recorded. Referral None recorded. Procedures None recorded. Surgeries None recorded. Imaging None recorded. Medication Orders pantoprazol e 40 mg tablet,rossana yed release 2023 024 CARMEN [place] [facility], [facility] [place] [address] Elvira MaganaMilner [place], [id number], 15:37:26 Patient TargetsNo targets recorded. Patient InstructionsNo instructions recorded. Reason for Referral None Reported. Medical Equipment None Reported. Allergies No known drug allergies Medications Name Sig Start Date Stop Date Status Note LastModified by Organization Details LastModified Time azithromycin 250 mg tablet active Not Available Not Availabl e Not Available ondansetron HCl 4 mg tablet active Not Available Not Available Not Available pantoprazole 40 mg tablet,delayed release Take 1 tablet every day by oral route at bedtime for 30 days. active Not Available Not Available No t Available methylprednisol one 4 mg tablets in a dose pack active Not Available Not Available No t Available brompheniramine -pseudoephedrin e-DM 2 mg-30 mg-10 mg/5 mL oral syrup active Not Available Not Available N ot Available ondansetron 4 mg disintegrating tablet active Not Available Not Available Not Available amoxicillin 875 mg-potassium clavulanate 125 mg tablet active Not Available Not Available No t Available Vitals Date Recorded Body weight Body mass index (BMI) Body height Body temperature Oxygen saturation Oxygen saturation in Arterial blood by Pulse oximetry Heart rate Heart rate Systolic blood pressure Diastolic blood pressure Provider Name and Address Organization Details Last Updated DateTime 4 128239. 88 g 41.9 kg/m2 190.5 cm 99 [degF] 98 % 98 % 96 /min 105 /min 155 mm[Hg] 83 mm[Hg] Sania Wilson [facility] [place] 14:40:57 Social History Question Answer Notes LastModified by [employer] Details LastModified Time Tobacco Smoking Status Never Smoker Sania Wilson [facility] 08/29/2023 14:41:50 What Is Your Level Of Caffeine Consumption? Moderate [email or web address] Information not available 08/29/2023 Sex: Unknown Functional Status Question Answer Note LastModified by [employer] Details LastModified Time Do you use any illicit or recreational drugs? No [email or web address] Information not available 08/29/2023 Do you or have you ever used any other forms of tobacco or nicotine? No Information not available 08/29/2023 What is your level of alcohol consumption? None Information not available 08/29/2023 Mental Status None recorded. Family History Nothing Reported. 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 No medical history recorded. Past Encounters Encounter ID Performer Location Encounter Start Date Encounter Closed Date Diagnosis/Indication Diagnosis SNOMED-CT Code Diagnosis ICD10 Code Diagnosis Note [id number] Manuel Guerrero MD [facility] [address] [place] [address] 08/29/2023 14:22:08 08/29/2023 16:15:19 Epigastric pain 96539729 R10.13 Health Concerns Section Related Observation LastModified by Organization Detai ls LastModified Time None Recorded Concern Status LastModified by Organization Details LastModified Time None Recorded Advance Directives Directive None Recorded Payers Insurance Date Sequence Insurance Name Policy Number Policy Mills Covered Member ID Mills Member ID Guarantor Name 09/20/2023 1 [place] [id number] Justin Lopez [id number] Justin Lopez Notes Date Note Type Note Provider Name and Address Organization Details Recorded Time 08/29/2023 text/html CURRENT (08/29/23 Nikole Nava): Mr. Lopez is a 28-year-old male who presents to the clinic today complaining of severe intermittent abdominal pain that has been ongoing the past 4-5 years. He describes these episodes as experiencing a foul tasting burp, followed by immediately vomiting and sharp abdominal epigastric pain. He reports these instances always happen at night. These episodes have happened intermittently over the last 4-5 years and have increased recently. He denies any alleviating or exacerbating factors. He denies any dietary triggers. He reports a normal HIDA scan recently as well as CT with IV and oral contrast that was unremarkable at outside ER. He underwent colonoscopy at [facility] approximately 3-4 years ago which he reports was unremarkable. He currently takes omeprazole 20 mg once daily. He denies excessive NSAID use, alcohol use, hematemesis, hematochezia or melena. DYLAN NAVA MSN, WARP TYING MACHINE KNOTTER, LEAD QA ANALYST-C [address] [facility], [place], [address], [facility] [place] [facility] [place] & [place] 08/30/2023 17:31:59
--- OUTSIDE RECORDS SUMMARY | 2025-01-08 16:20 | XMS_ITS ---
Author Organization Unknown Medications Medication Instructions Effective Dates (start - stop) Status celecoxib 200 MG Oral Capsule 19-04-1500:00:00.000+00: 00 - Completed {21 (methylprednisolone 4 MG Oral Tablet) } Pack [id number]:00:00.000+00: 00 - Completed losartan potassium 50 MG Ora l Tablet [id number]:00:00.000+00: 00 - Completed celecoxib 200 MG Oral Capsule 19-03-1900:00:00.000+00: 00 - Completed amoxicillin 875 MG / clavula frannie 125 MG Oral Tablet [id number]:00:00.000+00: 00 - Completed brompheniramine maleate 0.4 MG/ML / dextromethorphan hydrobromide 2 MG/ML / pseudoephedrine hydrochloride 6 MG/ML Oral Solution [id number]:00:0 0.000+00: 00 - Completed Patient Care team information Name Category Status Period Participants - - Proposed period not known -
--- OUTSIDE RECORDS SUMMARY | 2025-01-08 16:20 | XMS_ITS | Patient Health Record ---
Author Organization [facility] Address [address] [id number] Care Team Providers Care Vibrator Operator Name Role Phone Karsten Draper Unavailable [phone] Allergies No Known Allergies Results Component Value Reference Range Notes P-Vitamin D 25-Hydroxy Reviewed date:02/12/2024 09:17:19 AM Interpretation:20.2 Performing Lab: Notes/Report: Test performed by [facility] [address] [place] [address] , [place] [address] Bernardino Gutierrez MD, Industrial Fabric Cutter CLIA: [id number] Vitamin D 25-Hydroxy 20.2 30.0-100.0 ng/mL Interpretation of Vitamin D 25 OH: < 20 ng/mL - Deficiency 20 - 29 ng/mL - Insufficiency 30 - 100 ng/mL - Sufficiency > 100 ng/mL - Super-therapeutic- toxicity may occur above this level. Clinical correlation required. P-Testosterone Total (Adult Male) Reviewed date:02/12/2024 09:17:19 AM Interpretation:126 Performing Lab: Notes/Report: Test performed by [facility] [address] [place], [place] [address] [place] , [address], [place] [address] Bernardino Gutierrez MD, Industrial Fabric Cutter CLIA: [id number] Testosterone Total 126.00 264.00-916.00 ng/dL P-Basic Metabolic Panel (BMP ) Reviewed date:02/12/2024 09:17:19 AM Interpretation:gluc 143 Performing Lab: Notes/Report: Test performed by [facility] [address] [place], [place] [address] [place] , [address], [place] [address] Bernardino Gutierrez MD, Industrial Fabric Cutter CLIA: [id number] Sodium 140 135-145 mmol/L Potassium 4.0 3.5-5.3 mmol/L Chloride 103 97-108 mmol/L CO2 24 22-32 mmol/L Glucose 143 65-99 mg/dL BUN 13 6-20 mg/dL Creatinine 0.83 0.70-1.30 mg/dL Calcium 9.3 8.6-10.4 mg/dL eGFR by Creatinine 123 >59 mL/min/1.73m2 Reason For Referral Diagnosis 1 Testosterone deficie ncy in male (E29.1) Referral Organization [facility] Referring Provider First Name Karsten Referring Provider Last Name Bonny Referring Provider [facility] ctice Referred Provider Urology, Urology Referred Provider Specialty Urology General Notes Alice Malik 02/12/20 2:55:26 PM > ask patient which urologist he wants to see, Emily Belcher 02/12/2024 3:29:11 PM > Patient would like to try Dr. Norman at [facility], Alice Malik 02/12/2024 3:44:31 PM > [facility], Alice Malik 02/13/2024 10:28:28 AM > [facility] at 11:00am; pt informed Referral Priority Routine Reason patient requests to be seen at [facility] Gastroenterology Diagnosis 1 Generalized abdomina l pain (R10.84) Diagnosis 2 History of IBS (Z87. 19) Referral Organization [facility] Referring Provider First Name Karsten Referring Provider Last Name Bonny Referring Provider [facility] ctice Referred Provider Specialty Gastroentero logy General Notes Alice Malik 024 4:03:53 PM > faxed referral to [facility] Gastroenterology Referral Priority Routine Medications Medication SIG (Take, Route, Frequency, Duration) Notes Start Date End Date Status Irbesartan 300 MG 1 tablet Orally Once a day 02/09 Active tiZANidine HCl 2 MG 1 or 2 tablets as ne eded Orally 3 times a day 01/08/2025 Active Pantoprazole Sodium 40 MG 1 tablet Orall y Once a day for 30 day(s) Active Meloxicam 15 MG 1 tablet Orally Once a day for 30 days 01/08/2025 Active Vitamin D3 1.25 MG (44627 UT) 1 capsule Orally Once a week 02/12/2024 Active DULoxetine HCl 60 MG 2 capsule Orally On ce a day for 30 day(s) 10/14/2023 Active Wegovy 0.25 MG/0.5ML 0.5 mL Subcutaneous once a week for 30 days 12/02/2024 Active Immunizations Vaccine Route Administration Date Status Comme nts Hep A- Pediatric Unknown 03/02/2009 Administered Tetanus Tdap-Adacel (over 7yrs) Unknown 03/02/2009 Admi nistered Varivax Unknown 03/02/2009 Administered Problems Problem Type SNOMED Code ICD Code Onset Dates Problem Status W/U Status Risk Notes Problem 89763138 Vitamin D defici ency (E55.9) Active confirmed Problem 43367263 Essential hypertension (I10) Active confirmed Problem 475813060 Morbid obesity (E66.01) Active confirmed Problem 93563033 Anxiety (F41.9) Active confirmed Problem 694004102 Adjustment disor joselito with mixed anxiety and depressed mood (F43.23) Active confirmed Problem 14604081 Other chronic pa in (G89.29) Active confirmed Problem 113277217 BMI 40.0-44.9, a dult (Z68.41) Active confirmed Problem 1783029613775 Testosterone deficiency in male (E29.1) Active confirmed Problem 891432169 Gastroesophageal reflux disease, unspecified whether esophagitis present (K21.9) Active confirmed Problem 50397581 Primary hyperten becki (I10) Active confirmed Vital Signs Heart Rate 115 /min 01/08/2025 Blood pressure diastolic 84 mm Hg 01/08/2025 Height 75 in 01/08/2025 Blood pressure systolic 138 mm Hg 01/08/2025 Weight 345 lbs 01/08/2025 BMI 43.12 kg/m2 01/08/2025 Encounters Encounter Location Date Provider Diagnosis [facility] [address] [place], [place] [id number] 02/10/2024 Karsten Bryant Primary hypertension I10 ; Heartburn R12 ; Anxiety F41.9 ; Morbid obesity E66.01 ; Vitamin D deficiency E55.9 and Testosterone deficiency in male E29.1 [facility] [address] [place], [place] [id number] 11/30/2024 Karsten Bryant Morbid obesity E66.0 1 ; Essential hypertension I10 ; Gastroesophageal reflux disease, unspecified whether esophagitis present K21.9 and BMI 40.0-44.9, adult Z68.41 [facility] [address] [place], [place] [id number] 01/01/2025 Karsten Bryant Acute midline low ba ck pain, unspecified whether sciatica present M54.50 [facility] [address] [place], [place] [id number] 01/08/2025 Karsten Bryant Acute midline low ba ck pain, unspecified whether sciatica present M54.50 [facility] [address] [place], [place] [id number] 02/12/2024 Karsten Bryant Testosterone deficie ncy in male E29.1 [facility] [address] [place], [place] [id number] 05/07/2024 Karsten Bryant Generalized abdomina l pain R10.84 and History of IBS Z87.19 [facility] [address] [place], [place] [id number] 12/01/2024 Karsten Bryant [facility] [address] [place], [place] [id number] 12/18/2024 Karsten Bryant Anxiety F41.9 Assessments Encounter Date Diagnosis (ICD Code) Assessment Notes Treatment Notes Treatment Clinical Notes Section Notes 02/10/2024 Primary hypertension (ICD-10 - I10) Not at goal today 02/12/2024 Testosterone deficiency in male (ICD-10 - E29.1) 05/07/2024 Generalized abdominal pain (ICD-10 - R10.84) 05/07/2024 History of IBS (ICD-10 - Z87.19) 11/30/2024 Essential hypertension (ICD-10 - I10) 11/30/2024 Morbid obesity (ICD-10 - E66.01) Discussed starting Wegovy 02/10/2024 Heartburn (ICD-10 - R12) 12/18/2024 Anxiety (ICD-10 - F41.9) 01/01/2025 Acute midline low back pain, unspecified whether sciatica present (ICD-10 - M54.50) heating pad to affected areas 2 to 3 times a day TENS unit OTC recommended 01/08/2025 Acute midline low back pain, unspecified whether sciatica present (ICD-10 - M54.50) 02/10/2024 Anxiety (ICD-10 - F41.9) 11/30/2024 Gastroesophageal reflux disease, unspecified whether esophagitis present (ICD-10 - K21.9) 02/10/2024 Morbid obesity (ICD-10 - E66.01) 11/30/2024 BMI 40.0-44.9, adult (ICD-10 - Z68.41) 02/10/2024 Vitamin D deficiency (ICD-10 - E55.9) 02/10/2024 Testosterone deficiency in male (ICD-10 - E29.1) Plan Of Treatment Pending Test Test Name Order Date X ray : Spine, lumbosacral 01/08/2025 Next Appt Details Provider Name:Karsten potts, 01/08/2025 04:00:00 PM, [address] [facility] [address] [facility], [address], [place], [place], [id number], Provider Name:Karsten potts, 02/02/2025 09:00:00 AM, [address] [facility] [address] [facility], [address], [place], [place], [id number], Insurance Providers Payer Name Payer Address Payer Phone Subscriber Number Group Number Insured Name Patient Relationship to Insured Coverage Start Date Coverage End Date [facility] [address] [place] [address] [id number] KASIA SANFORD Self - patient is the insured Medical (General) History 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 History ICD Code Irritable Bowel Syndrome Hypertension Vitamin D deficiency Surgical History Surgery Date(Month/Year) Hospitalization History Reason Date(Month/Year) [facility] ER - Abdominal Pain w/ Vomiting 01/2023
--- OUTSIDE RECORDS SUMMARY | 2025-01-08 16:20 | XMS_ITS | Clinical Summary ---
Author Organization Healthcare Address [address] [place] [address] Care Team Providers Care Business Reporter Name Role Phone Unavailable Primary Care Provider Unavailabl e Allergies No known active allergies Family History 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 Relation Name Comments Hyperlipidemia Father Hypertension Father Stroke Father Hyperlipidemia Maternal Grandmother Hypertension Maternal Grandmother Stroke Maternal Grandmother Thyroid disease Maternal Grandmother Thyroid disease Mother Diabetes Other 1 Brain cancer Other 2 Relation Name Status Comments Father Maternal Grandmother Mother Other 1 Other 2 Social History Tobacco Use Types Packs/Day Years Used Date Smoking Tobacco: Every Day Alcohol Use Standard Drinks/Week Comments Yes 0 (1 standard drink = 0.6 oz pur e alcohol) CAGE ASSESSMENT Answer Date Recorded Cage unable to access Not on file 05/08/2024 Maximum number of drinks you had on a given occasion in the last month? 2 drinks 05/08/2024 How many alcoholic Beverages do you typically drink in a week? 0 - 7 per week 05/08/2024 Have you ever felt you should CUT down on your d rinking? 0 05/08/2024 Have you been ANNOYED by peo ple criticizing your drinking? 0 05/08/2024 Have you felt GUILTY about your drinking? 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 0 05/08/2024 CAGE Questionnaire Score 0 024 Sex and Gender Information Value Date Recorded Sex Assigned at Not on file Legal Sex Male 6:05 PM EDT Gender Identity Not on file Sexual Orientation Not on file Last Filed Vital Signs Vital Sign Reading Time Taken Comments Blood Pressure 156/101 05/08/2024 11:14 AM EDT Pulse 100 05/08/2024 11:14 AM EDT Temperature 36.8 C (98.3 F) 05/08/2024 11:14 AM EDT Respiratory Rate 18 05/08/2024 11:14 AM EDT Oxygen Saturation 97% 05/08/2024 11:14 AM EDT Inhaled Oxygen Concentration - - Weight 154 kg (340 lb) 05/08/2024 8:59 AM EDT Height 190.5 cm (6' 3 ) 05/08/2024 8:59 AM EDT Body Mass Index 42.5 05/08/2024 8:59 AM EDT Plan of Treatment Health Maintenance Due Date Last Done Comments [facility]-Depression Screening 1997 [facility]-/Child/Adol SDOH Screenings 1997 [facility]-Obesity Intervention 2003 [facility]-Varicella Vaccines (2 of 2 - 2-dose childhood series) 05/25/2009 03/02/2009 UKY-Hepatitis A Vaccines (2 of 2 - 2-dose series) 09/02/2009 03/02/2009 HPV Vaccines (1 - Male 3-dos e series) 2012 [facility]Y- SDOH Screenings 2015 UKY-Adult SDOH Screenings 2015 [facility]Y-Hepatitis B Vaccines (1 of 3 - 19+ 3-dose series) 2016 [facility]Y-DTaP,Tdap,and Td Vaccine s (2 - Td or Tdap) 03/02/2019 03/02/2009 [id number] Vaccine (1 - 2023- season) 2024 [facility]Y-Influenza Vaccine (Seas[place] n Ended) 2025 UKY-Zoster Vaccines (1 of 2) 2047 03/02/2009 UKY-HIV Screening Completed 05/08/2024, 04/28/2020 [facility]Y-Hepatitis C Screening Completed 2023, 04/28/2020 UKY-HIB Vaccines Aged Out No longer e ligible based on patient's age to complete this topic UKY-IPV Vaccines Aged Out No longer e ligible based on patient's age to complete this topic UKY-Pneumococcal Vaccine: Pediatrics (0 to 5 Years) and At-Risk Patients (6 to 49 Years) Aged Out No longer eligible b ased on patient's age to complete this topic UKY-Rotavirus Vaccines Aged Out No lo nger eligible based on patient's age to complete this topic Procedures Procedure Name Priority Date/Time Associated Diagnosis Comments HEPATITIS C ANTIBODY - ED W/REFLEX TO HCV QUANT PCR STAT 05/08/2024 9:25 AM EDT ED HIV 1/2 ANTIBODY/ANTIGEN SCREEN WITH REFLEX TO HIV I/II DIFFERENTIATION STAT 05/08/2024 9:25 AM EDT from Last 3 Months or Most Recently Relevant to Health Maintenance Results * ED HIV 1/2 Antibody/Antigen Screen w/Reflex to HIV 1/2 Differentiation (05/08/2024 9:25 AM EDT) HIV 1 & 2 Antibody/Antigen Screen Non Reactive Non Reactive 05/08/2024 10:[address] [facility] Comment:Screening for HIV 1 & 2 antibodies, and P24 antigen is NONREACTIVE. No confirmatory testing is required. Blood Venous blood specimen / Unknown Venipuncture / Unknown 05/08/2024 9:25 AM EDT 05/08/2024 9:46 AM EDT us Emily Perales MD LAB BLOOD ORDERABLES Final Res ult Performing Organization Address City/[facility]/ZIP Co de Phone Number [facility] [address] [place] [address] * Hepatitis C Antibody - ED (05/08/2024 9:25 AM EDT) Hepatitis C Antibody Negative Negative 05/08/2024 10:[address] [facility] Blood Venous blood specimen / Unknown Venipuncture / Unknown 05/08/2024 9:25 AM EDT 05/08/2024 9:46 AM EDT Emily Perales MD LAB BLOOD ORDERABLES Final Res ult Performing Organization Address City/[facility]/ZIP Co de Phone Number [facility] [address] [place] [address] from Last 3 Months or Most Recently Relevant to Health Maintenance [facility] COUNTS INCLUDE [facility] BEDS AT THE [facility]
== END 2025-01-08 23:59 | disposition home or self-care (01) ==
LOC: RAD 16:18
PROVIDERS: PCP Family Medicine; Visit Provider Family Medicine
DX: M54.50 Low back pain, unspecified (principal)
CPT/HCPCS: 72110

== ENCOUNTER 2025-02-23 15:52 | Observation (INO) | payer BC, SELFPAY ==
--- OUTSIDE RECORDS SUMMARY | 2025-01-01 11:45 | XMS_ITS ---
Author Organization Jen Address [address] [facility] [address] [place] [id number] Care Team Providers Care Bleacher [employer] Name Role Phone Bonny Karsten Unavailable [phone] Allergies No Known Allergies REASON FOR VISIT back pain Medications Medication SIG (Take, Route, Frequency, Duration) Notes Start Date End Date Status dexAMETHasone 4 MG 1 tablet Orally twic a day; Duration: 5 days 01/01/2025 Active DULoxetine HCl 60 MG 2 capsule Orally On a day; Duration: 30 day(s) 10/14/2023 Active Wegovy 0.25 MG/0.5ML 0.5 mL Subcutaneous once a week; Duration: 30 days 12/02/2024 Active Irbesartan 300 MG 1 tablet Orally Once a day 02/10/2024 Active Cyclobenzaprine HCl 5 MG 1 or 2 tablets as needed Orally 3 times a day 01/01/2025 Active Pantoprazole Sodium 40 MG 1 tablet Orall y Once a day; Duration: 30 day(s) Active Vitamin D3 1.25 MG (86057 UT) 1 capsule Orally Once a week 02/12/2024 Active Vital Signs Weight 336.8 lbs 01/01/2025 Blood pressure systolic 150 mm Hg 01/02/20 25 Blood pressure diastolic 789 mm Hg 025 Heart Rate 99 /min 01/01/2025 Height 75 in 01/01/2025 BMI 42.09 kg/m2 01/01/2025 Encounters Encounter Location Date Provider Diagnosis Jen [address] [facility] [address] [place] [phone] 01/01/2025 Karsten Draper Acute midline low ba ck pain, unspecified whether sciatica present M54.50 Assessments Encounter Date Diagnosis (ICD Code) Assessment Notes Treatment Notes Treatment Clinical Notes Section Notes 01/01/2025 Acute midline low back pain, unspecified whether sciatica present (ICD-10 - M54.50) heating pad to affected areas 2 to 3 times a day TENS unit OTC recommended Plan Of Treatment Medication Medication Name Sig Start Date Stop Date Notes dexAMETHasone 4 MG 1 tablet Orally twic e a day; Duration: 5 days 01/01/2025 Cyclobenzaprine HCl 5 MG 1 or 2 tablets as needed Orally 3 times a day 01/01/2025 Treatment Notes Assessment Notes Acute midline low back pain, unspecified whether sciatica present heating pad to affected areas 2 to 3 zion es a day TENS unit OTC recommended Next Appt Details Follow Up: prn, Reason: Progress Notes * ESTEPHANIA KASIA ADOB:1995 (29 yo M)Acc No.[id number]:01/01/2025 Progress Notes Patient: KASIA STROUD Provider: Arina Draper M.D. :1995 A ge:29 Y S ex:Male Date:01/01/2025 Address:[address] [place] [address] Subjective: * Chief Complaints: * 1 . Back pain. * HPI: L ower back: 29 year old male presents with c/o Low Back Pain f or 1 week P t sts he has c/o lower back pain and sts it got worse yesterday. * ROS: D ERMATOLOGY: no R moira. n o H sergei. G ASTROENTEROLOGY: no N ausea. n o V omiting. U ROLOGY: no D ifficulty urinating. n o B lood in urine. * 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: I rritable Bowel Syndrome, Hypertension, Vitamin D deficiency. * Hospitalization/Major Diagno stic Procedure: H ER [...] Sexually active: yes. * Medications: T aking Vitamin D3 1.25 MG (17159 UT) Capsule 1 capsule Orally Once a week , Taking Pantoprazole Sodium 40 MG Tablet Delayed Release 1 tablet Orally Once a day , Taking Irbesartan 300 MG Tablet 1 tablet Orally Once a day , Taking Wegovy 0.25 MG/0.5ML Solution Auto-injector 0.5 mL Subcutaneous once a week , Taking DULoxetine HCl 60 MG Capsule Delayed Release Particles 2 capsule Orally Once a day , Medication List reviewed and reconciled with the patient * Allergies: N .K.D.A. Objective: * Vitals: W t: 336.8, Temp: 98.4, BP: 150/789, HR: 99, Nurse: nadia, Ht: 75, BMI:42.09. * Examination: G eneral Examination: General Appearance: N AD. L ower back: Inspection: n ormal curvature of spine. P alpation:?bilateral lower lumbar paraspinal spasms. S traight leg raising test: n egative bilaterally. G ait: s tands and moves slowly due to pain. Assessment: * Assessment: 1. A cute midline low back pain, unspecified whether sciatica present - M54.50 (Primary) ? Plan: * Treatment: * Follow Up: p rn * Images: Billing Information: * Visit Code: 95420 Office Visit, Est Pt., Level 3. * Procedure Codes: * Electronic signature of Michelle Draper MD on 02/23/2025 at 04:11 PM EDT Sign off status: Pending * Provider: Arina Draper M.D. Date: 0 01/01/2025 Generated for Nelson hunter/Héctor/Khalifitting on: 02/23/2025 04:11 PM EDT History and Physical Notes * HPI (History of Present Illness) Category Sub-Category Detail Notes Category Not es Lower back Low Back Pain Pt sts he has c/ o lower back pain and sts it got worse yesterday Examination Category Sub-Category Detail Notes Category Not es General Examination General Appearance: NAD Lower back Straight leg raising test: negative bilaterally Gait: stands and moves slo wly due to pain Inspection: normal curvature of spine Palpation: bilateral lower lumb ar paraspinal spasms
--- OUTSIDE RECORDS SUMMARY | 2025-01-08 12:00 | XMS_ITS ---
Author Organization Delicia Address 1210 [facility] [address] [place] [id number] Care Team Providers Care Pencil Inspector Name Role Phone Karsten Draper Unavailable [phone] Allergies No Known Allergies Results Component Value [...] days 01/08/2025 Active Vitamin D3 1.25 MG (84754 UT) 1 capsule Orally Once a week 02/12/2024 Active Vital Signs Weight 345 lbs 01/08/2025 Blood pressure systolic 138 mm Hg 01/09/20 25 Blood pressure diastolic 84 mm Hg 025 Heart Rate 115 /min 01/08/2025 Height 75 in 01/08/2025 BMI 43.12 kg/m2 01/08/2025 Encounters Encounter Location Date Provider Diagnosis Jen [address] [place] [id number] 01/08/2025 Karsten Draper Acute midline low ba [...] phone to repo rt test results, Reason: Progress Notes * KASIA BEST ADOB:1995 (29 yo M)Acc No.[id number]:01/08/2025 Progress Notes Patient: Desiree BASIMKASIA Provider: Arina Draper M.D. :1995 A ge:29 Y S ex:Male Date:01/08/2025 Address:[address] [place] [address], [id number] Subjective: * Chief Complaints: * 1 . Back still hurting. * HPI: L owsandro back: 29 year old male presents with [...] Medications: T aking Vitamin D3 1.25 MG (47364 UT) Capsule 1 capsule Orally Once a [...] * Images: Billing Information: * Visit Code: 35834 Office Visit, Est Pt., Level 3. * Procedure Codes: * Electronic signature of Michelle Draper MD on 02/23/2025 at 04:12 PM EDT Sign off status: Pending * Provider: Arina Draper M.D. Date: 0 01/08/2025 Generated for Nelson hunter/Héctor/Khalifitting on: 0 02/23/2025 04:12 PM EDT History and Physical Notes * [...]
--- OUTSIDE RECORDS SUMMARY | 2025-02-02 05:00 | XMS_ITS ---
Author Organization Jen Address [address] [facility] [address] [id number] Care Team Providers Care Lathe Turner Name Role Phone Karsten Draper [phone] Allergies No Known Allergies REASON FOR VISIT 2 months and fasting Encounters Encounter Location Date Provider Diagnosis Jen [address] [facility] [address] [place] [id number] 02/02/2025 Karsten Draper Plan Of Treatment No Information Progress Notes * ESTEPHANIAFANTAKASIA ADOB:1995 (29 yo M)Acc No.[id number]:02/02/2025 Progress Notes Patient: KASIA STROUD Provider: Arina Draper M.D. :1995 A ge:29 Y S ex:Male Date:02/02/2025 Address:[address] [place], [place] [phone] Subjective: * Chief Complaints: * 1 . [...] Pending * Provider: Arina Draper M.D. Date: 02/02/2025 Generated for Nelson hunter/Héctor/Rusty on: 02/23/2025 04:12 PM EDT
[2025-02-23] VITALS (24 sets, daily range): BP systolic 112–157; BP diastolic 60–90; PULSE 94–121; RESP 14–19; TEMP 36.8; O2SAT 92–99; BMI 40.6; BMI 41.3
--- NOTE | 2025-02-23 16:09 | CT_ITS ---
PROCEDURE INFORMATION: Exam: CT Abdomen And Pelvis With Contrast Exam date and time: 02/23/2025 4:51 PM Age: 29 years old Clinical indication: Abdominal pain; Additional info: Abdominal pain, diarrhea, nausea TECHNIQUE: Imaging protocol: Computed tomography of the abdomen and pelvis with contrast. Radiation optimization: All CT scans at this facility use at least one of these dose optimization techniques: automated exposure control; mA and/or kV adjustment per patient size (includes targeted exams where dose is matched to clinical indication); or iterative reconstruction. Contrast material: ISOVUE; Contrast volume: 75 ml; Contrast route: IV; COMPARISON: CR XR LUMBAR SPINE MIN 4V 01/08/2025 4:26 PM FINDINGS: Lungs: Lung bases are clear. Liver: Fatty liver changes with associated hepatomegaly measuring 25 cm. A 18 mm round hyperdense lesion noted in the inferior right lobe of liver on image 66 of series 3 not clearly seen on prior CT of 05/06/2024. Liver otherwise unremarkable. Gallbladder and biliary ducts: Normal. No calcified stones. No ductal dilation. Pancreas: Normal. No ductal dilation. Spleen: Normal. No splenomegaly. Adrenal glands: Normal. No mass. Kidneys and ureters: Normal. No hydronephrosis. Stomach and bowel: Mildly fluid distended small bowel loops in the pelvis and midabdomen without significant dilatation and no evident transition zone. Mild fluid scattered throughout the colon more pronounced in the proximal colon and distal colon. GI tract structures otherwise unremarkable with no evident wall thickening allowing for incomplete distention. Appendix: No evidence of appendicitis. Intraperitoneal space: Unremarkable. No free air. No significant fluid collection. Vasculature: Unremarkable. No abdominal aortic aneurysm. Lymph nodes: Unremarkable. No enlarged lymph nodes. Urinary bladder: Unremarkable as visualized. Reproductive: Unremarkable as visualized. Bones/joints: Unremarkable. No acute fracture. Soft tissues: Unremarkable. IMPRESSION: 1. Mildly fluid distended small bowel loops and mild fluid scattered throughout the colon more pronounced in the proximal colon and distal colon. Findings suggest possible gastroenteritis with associated diarrheal component. 2. A 18 mm round hyperdense lesion noted in the inferior right lobe of liver not seen on prior CT of 05/06/2024. Further evaluation with non-emergent liver MRI is recommended. (Reference: Key) REFERENCES: Key THORNTON, et al. Management of Incidental Liver Lesions on CT: A White Paper of the ACR Incidental Findings Committee. J Am Rosalie Radiol. 2017;14(11):7103-7473.
--- OUTSIDE RECORDS SUMMARY | 2025-02-23 16:12 | XMS_ITS | Clinical Summary ---
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 No confirmatory testing is required. Blood Venous blood specimen / Unknown Venipuncture / Unknown 05/08/2024 9:25 AM EDT 05/08/2024 9:46 AM EDT Emily Perales MD LAB BLOOD ORDERABLES Final Res ult Performing Organization Address City/[facility]/ZIP Co de Phone Number [facility] [address] [place] [address] * Hepatitis C Antibody - ED (05/08/2024 9:25 AM EDT) Hepatitis C Antibody Negative Negative 05/08/2024 10:27 AM EDT [facility] Blood Venous blood specimen / Unknown Venipuncture / Unknown 05/08/2024 9:25 AM EDT 05/08/2024 9:46 AM EDT Emily Perales MD LAB BLOOD ORDERABLES Final Res ult Performing Organization Address [facility]/ZIP Co de Phone Number [facility] [address] [place] [address] from Last 3 Months or Most Recently Relevant to [place] [address] [facility] MEDICAID [facility]
--- OUTSIDE RECORDS SUMMARY | 2025-02-23 16:12 | XMS_ITS | Patient Health Record ---
Author Organization Delicia Address [address] [id number] Care Team Providers Care Foundation Drill Operator Helper Name Role Phone Bonny Karsten Unavailable [phone] Allergies No Known Allergies Results Component Value Reference Range Notes X ray : Spine, lumbosacral Reviewed date:01/12/2025 02:27:10 PM Interpretation:Negative Performing Lab: Notes/Report: Negative Reason For Referral Reason patient requests to be seen at [facility] Gastroenterology Diagnosis 1 Generalized abdomina l pain (R10.84) Diagnosis 2 History of IBS (Z87. 19) [facility] Referring Provider First Name Karsten Referring Provider Last Name Bonny Referring Provider Speciality Family Pra ctice Referred Provider Specialty Gastroentero logy General Notes Alice aMlik 024 4:03:53 PM > faxed referral to [facility] Gastroenterology Referral Priority Routine Medications Medication SIG [...] days 01/08/2025 Active Vitamin D3 1.25 MG (15132 UT) 1 capsule Orally Once a week 02/12/2024 Active DULoxetine HCl 60 MG 2 capsule Orally On ce a day; Duration: 30 day(s) 10/14/2023 Active Wegovy 0.25 MG/0.5ML 0.5 mL Subcutaneous once a week; Duration: 30 days 12/02/2024 Active Immunizations Vaccine Route Administration Date Status Comme nts Varivax Unknown 03/02/2009 Administered Tetanus Tdap-Adacel (over 7yrs) Unknown 03/02/2009 Admi nistered Hep A- Pediatric Unknown 03/02/2009 Administered Problems Problem Type SNOMED Code ICD Code Onset Dates Problem Status W/U Status Risk Notes Problem Vitamin D deficiency (24422664) Vitamin D deficiency (E55.9) Active confirmed Problem Essential hypertension (47038208) Essential hypertension (I10) Active confirmed Problem Morbid obesity (357141302) Morbid obesity (E66.01) Active confirmed Problem Anxiety (59157753) Anxiety (F41.9) Active confi rmed Problem Adjustment disorder with mixed anxiety and depressed mood (583659884) Adjustment disorder with mixed anxiety and depressed mood (F43.23) Active confirmed Problem Chronic pain (22946814) Other chronic pain (G89.29) Active confirmed Problem Body mass index 40+ - morbidly obese (063736236) BMI 40.0-44.9, adult (Z68.41) Active confirmed Problem Testicular hypofunction (841207633) Testosterone deficiency in male (E29.1) Active confirmed Problem Gastroesophageal reflux disease (634148521) Gastroesophageal reflux disease, unspecified whether esophagitis present (K21.9) Active confirmed Problem Primary hypertension (31310996) Primary hypertension (I10) Active confirmed Vital Signs Heart Rate 115 /min 01/08/2025 Blood pressure diastolic 84 mm Hg 01/08/2025 Height 75 in 01/08/2025 Blood pressure systolic 138 mm Hg 01/08/2025 Weight 345 lbs 01/08/2025 BMI 43.12 kg/m2 01/08/2025 Encounters Encounter Location Date Provider Diagnosis [facility] [address] [place], [place] [id number] 11/30/2024 Karsten [place] Morbid obesity E66.0 1 ; Essential hypertension I10 ; Gastroesophageal reflux disease, unspecified whether esophagitis present K21.9 and BMI 40.0-44.9, adult Z68.41 [facility] [address] [place], [place] [id number] 01/01/2025 Karsten [place] Acute midline low ba ck pain, unspecified whether sciatica present M54.50 [facility] [address] [place] [id number] 01/08/2025 Karsten [place] Acute midline low ba ck pain, unspecified whether sciatica present M54.50 [facility] [address] [place], [place] [id number] 05/07/2024 Karsten [place] Generalized abdomina l pain R10.84 and History of IBS Z87.19 [facility] [address] [place], [place] [id number] 12/01/2024 Karsten [place] [facility] [address] [place] [id number] 12/18/2024 Karsten [place] Anxiety F41.9 Assessments Encounter Date Diagnosis (ICD Code) Assessment Notes Treatment Notes Treatment Clinical Notes Section Notes 05/07/2024 Generalized abdominal pain (ICD-10 - R10.84) 05/07/2024 History of IBS (ICD-10 - Z87.19) 11/30/2024 Essential hypertension (ICD-10 - I10) 11/30/2024 Morbid obesity (ICD-10 - E66.01) Discussed starting Wegovy 12/18/2024 Anxiety (ICD-10 - F41.9) 01/01/2025 Acute midline low back pain, unspecified whether sciatica present (ICD-10 - M54.50) heating pad to affected areas 2 to 3 times a day TENS unit OTC recommended 01/08/2025 Acute midline low back pain, unspecified whether sciatica present (ICD-10 - M54.50) 11/30/2024 Gastroesophageal reflux disease, unspecified whether esophagitis present (ICD-10 - K21.9) 11/30/2024 BMI 40.0-44.9, adult (ICD-10 - Z68.41) Plan Of Treatment No Information Insurance Providers Payer Name Payer Address Payer Phone Subscriber Number Group Number Insured Name Patient Relationship to Insured Coverage Start Date Coverage End Date [employer] [address] [place] [address] [id number] KASIA SANFORD Self - patient is the insured Medical (General) History 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 History ICD Code Irritable Bowel Syndrome Hypertension Vitamin D deficiency Surgical History Surgery Date(Month/Year) Hospitalization History Reason Date(Month/Year) [facility] ER - Abdominal Pain w/ Vomiting 01/2023
--- OUTSIDE RECORDS SUMMARY | 2025-02-23 16:12 | XMS_ITS | Data Portability ---
Author Organization [place] [facility] [place] [facility] AD[facility] Address [address] [place] [phone] Care Team Providers Care Fire Prevention Captain Name Role Phone ASHLEYWILL LEIGH ANN Primary Care Provider Assessment Encounter Date Assessment [...] tobacco and alcohol Follow up after EGD [email or web address] Not available 08/30/2023 17:31:39 Plan of Treatment Reminders Order Date Submit Date Provider Last Modified By Organization Details Last Modified Time Details Appointments None recorded. Lab None recorded. Referral None recorded. Procedures None recorded. Surgeries None recorded. Imaging None recorded. Medication Orders pantoprazol e 40 mg tablet,rossana yed release 2023 024 [place]MEN [place] [facility], [address] [address] [place], [id number], 15:37:26 Patient TargetsNo targets recorded. Patient InstructionsNo [...] Pulse oximetry Heart rate Heart rate Systolic And Diastolic Provider Name and Address Organization Details Last Updated DateTime 051875. 88 g 41.9 kg/m2 190.5 cm 99 [degF] 98 % 98 % 96 /min 105 /min 155/83 mm[Hg] Sania Wilson [facility] [place] 14:40:57 Social History Question Answer Notes LastModified by [employer] Details LastModified Time Tobacco Smoking Status Never Smoker Sania [facility] 08/29/2023 14:41:50 What Is Your Level Of Caffeine Consumption? Moderate [email or web address] Information not available 08/29/2023 Sex: Unknown Functional Status Question Answer Note LastModified by [employer] Details LastModified Time Do you use any illicit or recreational drugs? No [email or web address] Information not available 08/29/2023 Do you or have you ever used any other forms of tobacco or nicotine? No [email or web address] Information not available 08/29/2023 What is your level of alcohol consumption? None [email or web address] Information not available 08/29/2023 Mental Status None recorded. Family History Nothing Reported. 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 No medical history recorded. Past Encounters Encounter ID Performer Location Encounter Start Date Encounter Closed Date Diagnosis/Indication Diagnosis SNOMED-CT Code Diagnosis ICD10 Code Diagnosis Note [id number] Manuel Guerrero MD [facility] [address] [phone] 08/29/2023 14:22:08 08/29/2023 16:15:19 Epigastric pain 81613381 R10.13 Health Concerns Section Related Observation LastModified by Organization Detai ls LastModified Time None Recorded Concern Status LastModified by Organization Details LastModified Time None Recorded Advance Directives Directive None Recorded Payers Insurance Date Sequence Insurance Name Policy Number Policy Mills Covered Member ID Mills Member ID Guarantor Name 09/20/2023 1 [place] [id number] Justin Lopez [id number] Justin Lopez
[2025-02-23 16:15] LABS: Microscopic, Urine URINE MICROSCOPIC (MICROSCOPIC)
[2025-02-23 16:16] LABS: Bilirubin,Urine Negative (Negative); Color,Urine YELLOW (Yellow); Glucose,Urine (UA) Negative (Negative); Ketones,Urine Negative (Negative); Leukocyte Esterase,Urine Negative (Negative); PH,Urine 5.5 (5.0-8.5); Protein,Urine Negative (Negative); Specific Gravity, Urine >= 1.030 (1.005-1.030); Urobilinogen,Urine 0.2 EU/dl (0.2)
[2025-02-23 16:23] LABS: Hematocrit 45.7 % (42.0-52.0); Hemoglobin 15.3 g/dL (14.1-18.0); Immature Granulocytes % 0.3 %; Mean Corpuscular HGB Conc 33.5 g/dL (31.8-35.4); Mean Corpuscular Hemoglobin 26.8 pg (27.0-31.2); Mean Corpuscular Volume 80.2 fl (80-94); Nucleated Red Blood Cells % 0 %; Platelet Count 387 K/mm3 (142-424); Red Blood Count 5.70 M/mm3 (4.60-6.20); Red Cell Distribution Width-SD 39.6 fL; White Blood Count 15.3 K/mm3 (4.8-10.8)
[2025-02-23] MEDS: LACTATED RINGERS 1000ML 500 ML 999 ML IV (16:23)
[2025-02-23] MEDS: ONDANSETRON 4MG/2ML VIAL 4 MG IV (16:24)
[2025-02-23 16:31] LABS: Adenovirus F 40/41, stool Not Detected (NotDetected); Clostridium Difficile A/B, PCR Not Detected (NotDetected); Cyclospora Cayetanesis Not Detected (NotDetected); Plesimonas Shigalloides, PCR Not Detected (NotDetected); Salmonella, PCR Not Detected (NotDetected); Shiga-like toxin E coli Not Detected (NotDetected); Shigella Enterovasive E coli Not Detected (NotDetected); Vibrio, PCR Not Detected (NotDetected); Yersinia Entercolitica, PCR Not Detected (NotDetected)
[2025-02-23 16:37] LABS: Alanine Aminotransferase 44 U/L (12-78); Albumin Level 4.7 g/dl (3.5-5.0); Albumin/Globulin Ratio 1.4 (1.1-1.8); Alkaline Phosphatase 93 U/L (38-126); Anion Gap 13.6 mEq/L (5-15); Aspartate Amino Transferase 36 U/L (17-59); Bilirubin,Total 1.2 mg/dl (0.2-1.3); Blood Urea Nitrogen 13 mg/dl (9-20); Calcium 9.6 mg/dl (8.4-10.2); Carbon Dioxide 23 mmol/L (22.0-30.0); Chloride 105 mmol/L (98-107); Creatinine Clearance Estimated 331 mL/min (50-200); Creatinine,Serum 0.70 mg/dl (0.66-1.25); Estimated Glomerular Filt Rate 135 ml/min (>60); GFR (African American) 164 ML/MIN (>60); Globulin 3.4 g/dL (1.3-3.2); Glucose 134 mg/dl (74-100); Lipase 56 U/L (23-300); Potassium 3.6 mmoL/L (3.5-5.1); Sodium 138 mmol/L (136-145); Total Protein,Serum 8.1 g/dl (6.3-8.2)
--- NOTE | 2025-02-23 16:40 | HMH.EDGENADL ---
Discharge Plan Disposition Patient Disposition: Admitted Condition: Good Clinical Impressions Clinical Impression: Abdominal pain, Gastroenteritis Discharge ED Provider: Omar Chanel General Adult HPI General Chief complaint: Abdominal Pain Stated complaint: V/D,Abdominal Pain Time Seen by Provider: 02/23/25 15:57 Mode of Arrival: Ambulatory Source of Information: Patient Description of Symptoms (Recalled from ER Triage Doc. by RN): pt presents to the ED with generalized abdominal pain that started this morning at 05:00. pt reports having nausea, vomiting and diarrhea. Per pt his PCP has told the pt that his gut makes to much bacteria. pt states that when he has the abdominal pain it feels like his insides are twisting . History of Present Illness HPI narrative: This is a 29-year-old male patient, with past medical history of GERD and anxiety, who is presenting to the emergency department today for evaluation of abdominal pain, vomiting, and diarrhea. Patient states that he has had similar symptoms like this in the past he was diagnosed with enteropathogenic E. coli. He tells me that he had June's for dinner last night and when he woke up this morning at around 5 AM he was having profuse diarrhea. Since that time he has begun experiencing diffuse abdominal pain and cramping. He has also had numerous episodes of vomiting. He is not having hematochezia, bright red blood per rectum, or melena. No hematemesis. No chest pain or shortness of breath. Related Data Home Medications ?Medication ?Instructions ?Recorded ?Confirmed duloxetine 60 mg capsule,delayed 60 mg PO BID 01/09/24 10/08/24 release pantoprazole 40 mg tablet,delayed 40 mg PO DAILY 01/09/24 10/08/24 release dicyclomine 20 mg tablet 20 mg PO QID 05/09/24 10/08/24 Previous Rx's ?Medication ?Instructions ?Recorded benzonatate 100 mg capsule 100 mg PO TID PRN cough #30 caps 10/08/24 Allergies Allergy/AdvReac Type Severity Reaction Status Date / Time No Known Allergies Allergy Verified 10/08/24 17:20 [facility] Disclaimer: The information contained in this section may have been updated after the patient was seen, as this information can be updated by other users. 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 (Updated 02/24/25 @ 02:17 by Omar Chanel DO) Viral syndrome Sinusitis Libido, decreased Fatigue Hypogonadism Acute streptococcal pharyngitis URI (upper respiratory infection) Sore throat Bilateral otitis media Vitamin D deficiency GERD (gastroesophageal reflux disease) Hypertension Depression Anxiety Post-concussional syndrome Head injury due to trauma Strep throat Abdominal pain Sprain of right foot Exposure to COVID-19 virus Surgical History No significant past surgical history Family History Other No significant family history Social History (Updated 02/23/25 @ 23:28 by Hansa Christie RN) Smoking Status: Never smoker alcohol intake: never current occupational status: employed Travel in the last 8 weeks?: None Have you lived/traveled outside US in past 30 days?: No Contact w/someone who lives/traveled outside US past 30 days?: No Exposure to someone with infectious disease in past 14 days?: No Do you have a fever (greater than 100.4 F or 38 C)?: No Have you tested positive for COVID-19?: No Exposed to someone with COVID-19 in past 14 days?: No Do you have a sore throat?: No Do you have a cough?: No Do you have any weakness?: No Do you have any diarrhea?: No Are you experiencing any unusual bleeding?: No Do you have any muscle aches/pain?: No Do you have any abdominal pain?: No Are you experiencing loss of taste or smell?: No Other 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 Have you received the Flu Vaccine for this season: No Have you received the Pneumonia Vaccine: No ROS Obtained: Yes Systems reviewed as appropriate & no additional complaints except as documented Physical Exam General General appearance: alert and in no apparent distress Head Head exam: atraumatic and normocephalic Eye Eye exam: Present PERRL and EOMI ENT ENT exam: Present normal oropharynx Neck Neck exam: Present full ROM and trachea midline Respiratory Respiratory exam: Present normal lung sounds bilaterally; Absent respiratory distress Cardiovascular Cardiovascular exam: Present regular rate and normal rhythm Abdominal Exam Abdominal exam: Present soft and tenderness Extremities Exam Extremities exam: Present normal inspection; Absent tenderness Back Exam Back exam: Absent vertebral tenderness Neurological Exam Neurological exam: Present alert and oriented X3 Skin Skin exam: Present warm and dry Medical Decision Making Medical Records Medical records reviewed: Yes I reviewed the patient's medical records. Screening: Per USPSTF and CDC recommendations, given the prevalence of disease in our region, it is our hospital?s policy to screen for HIV and viral Hepatitis for all patients aged 18 and over and those with ongoing risk factors. Reginald Inquiry Pt receiving controlled substance: No Reginald was queried for this patient: No Vital Signs: 02/23/25 16:01 02/23/25 16:07 02/23/25 16:13 Temperature 98.2 F 98.2 F Temperature Source Oral Oral Pulse Rate 121 H 114 H Pulse Rate [Right] 114 H Respiratory Rate 14 14 Blood Pressure 157/90 H 157/90 H Blood Pressure [Right Arm] 157/90 H Blood Pressure Mean Blood Pressure Mean [Right Arm] 112 Blood Pressure Source Automatic Cuff Blood Pressure Source [Right Arm] Automatic Cuff Blood Pressure Position Supine Blood Pressure Position [Right Arm] Supine 02 Sat by Pulse Oximetry 97 96 96 Oxygen Delivery Method Room Air Room Air 02/23/25 16:41 02/23/25 17:00 02/23/25 17:20 Temperature Temperature Source Pulse Rate 108 H 108 H 99 H Pulse Rate [Right] Respiratory Rate Blood Pressure 140/81 142/73 H 143/79 H Blood Pressure [Right Arm] Blood Pressure Mean Blood Pressure Mean [Right Arm] Blood Pressure Source Blood Pressure Source [Right Arm] Blood Pressure Position Blood Pressure Position [Right Arm] 02 Sat by Pulse Oximetry 98 97 97 Oxygen Delivery Method 02/23/25 17:41 02/23/25 18:00 02/23/25 19:00 Temperature Temperature Source Pulse Rate 96 H 96 H Pulse Rate [Right] Respiratory Rate Blood Pressure 123/60 121/70 127/70 Blood Pressure [Right Arm] Blood Pressure Mean 81 Blood Pressure Mean [Right Arm] Blood Pressure Source Blood Pressure Source [Right Arm] Blood Pressure Position Blood Pressure Position [Right Arm] 02 Sat by Pulse Oximetry 92 L 98 Oxygen Delivery Method 02/23/25 19:15 02/23/25 19:20 02/23/25 19:40 Temperature Temperature Source Pulse Rate 94 H 97 H Pulse Rate [Right] Respiratory Rate Blood Pressure 127/74 Blood Pressure [Right Arm] Blood Pressure Mean 85 Blood Pressure Mean [Right Arm] Blood Pressure Source Blood Pressure Source [Right Arm] Blood Pressure Position Blood Pressure Position [Right Arm] 02 Sat by Pulse Oximetry 98 99 Oxygen Delivery Method 02/23/25 19:45 02/23/25 20:00 02/23/25 20:00 Temperature Temperature Source Pulse Rate 99 H 99 H Pulse Rate [Right] Respiratory Rate Blood Pressure 118/72 Blood Pressure [Right Arm] Blood Pressure Mean 83 Blood Pressure Mean [Right Arm] Blood Pressure Source Blood Pressure Source [Right Arm] Blood Pressure Position Blood Pressure Position [Right Arm] 02 Sat by Pulse Oximetry 99 98 Oxygen Delivery Method 02/23/25 20:15 02/23/25 20:20 02/23/25 20:20 Temperature Temperature Source Pulse Rate 105 H 102 H Pulse Rate [Right] Respiratory Rate Blood Pressure 112/63 Blood Pressure [Right Arm] Blood Pressure Mean 76 Blood Pressure Mean [Right Arm] Blood Pressure Source Blood Pressure Source [Right Arm] Blood Pressure Position Blood Pressure Position [Right Arm] 02 Sat by Pulse Oximetry 99 99 Oxygen Delivery Method 02/23/25 20:30 02/23/25 20:40 02/23/25 20:40 Temperature Temperature Source Pulse Rate 104 H 103 H Pulse Rate [Right] Respiratory Rate Blood Pressure 113/67 Blood Pressure [Right Arm] Blood Pressure Mean 78 Blood Pressure Mean [Right Arm] Blood Pressure Source Blood Pressure Source [Right Arm] Blood Pressure Position Blood Pressure Position [Right Arm] 02 Sat by Pulse Oximetry 99 98 Oxygen Delivery Method 02/23/25 20:45 02/23/25 21:00 02/23/25 21:00 Temperature Temperature Source Pulse Rate 107 H 107 H Pulse Rate [Right] Respiratory Rate Blood Pressure 112/63 Blood Pressure [Right Arm] Blood Pressure Mean 70 Blood Pressure Mean [Right Arm] Blood Pressure Source Blood Pressure Source [Right Arm] Blood Pressure Position Blood Pressure Position [Right Arm] 02 Sat by Pulse Oximetry 98 97 Oxygen Delivery Method 02/23/25 21:15 02/23/25 21:20 02/23/25 21:20 Temperature Temperature Source Pulse Rate 106 H 98 H Pulse Rate [Right] Respiratory Rate Blood Pressure 121/65 Blood Pressure [Right Arm] Blood Pressure Mean 72 Blood Pressure Mean [Right Arm] Blood Pressure Source Blood Pressure Source [Right Arm] Blood Pressure Position Blood Pressure Position [Right Arm] 02 Sat by Pulse Oximetry 96 96 Oxygen Delivery Method 02/23/25 22:04 Temperature 98.2 F Temperature Source Oral Pulse Rate 98 H Pulse Rate [Right] Respiratory Rate 16 Blood Pressure 121/65 Blood Pressure [Right Arm] Blood Pressure Mean Blood Pressure Mean [Right Arm] Blood Pressure Source Automatic Cuff Blood Pressure Source [Right Arm] Blood Pressure Position Sitting Blood Pressure Position [Right Arm] 02 Sat by Pulse Oximetry Oxygen Delivery Method Room Air Lab Data Lab Results 02/23/25 16:00: Urine Color Yellow, Urine Appearance Clear, Urine pH 5.5, Ur Specific [place] >= 1.030, Urine Protein Negative, Urine Glucose (UA) Negative, Urine Ketones Negative, Urine Blood Negative, Urine Nitrate Negative, Urine Bilirubin Negative, Urine Urobilinogen 0.2, Ur Leukocyte Esterase Negative, Urine RBC None, Urine WBC 3-5, Ur Squamous Epith Cells 3-5, Urine Bacteria Trace, Urine Mucus 3+ 02/23/25 16:15: WBC 15.3 H, RBC 5.70, Hgb 15.3, Hct 45.7, MCV 80.2, MCH 26.8 L, MCHC 33.5, RDW 13.7, Plt Count 387, MPV 8.7, Neut % (Auto) 74.0, Lymph % (Auto) 18.8, [place] % (Auto) 5.4, Eos % (Auto) 1.0, Baso % (Auto) 0.5, Neut # (Auto) 11.3 H, Lymph # (Auto) 2.9, [place] # (Auto) 0.8, Eos # (Auto) 0.2, Baso # (Auto) 0.1, Sodium 138, Potassium 3.6, Chloride 105, Carbon Dioxide 23, Anion Gap 13.6, BUN 13, Creatinine 0.70, Estimated Creat Clear 331 H, Estimated GFR 135, Est GFR ( Amer) 164, Glucose 134 H, Calcium 9.6, Total Bilirubin 1.2, AST 36, ALT 44, Alkaline Phosphatase 93, Total Protein 8.1, Albumin 4.7, Globulin 3.4 H, Albumin/Globulin Ratio 1.4, Lipase 56, Stl C. cayetanensis PCR Not detected, Stool Rotavirus (PCR) Not detected, Stl Adenov F 40/41 PCR Not detected, Stool Astrovirus (PCR) Not detected, Stool Campylobacter PCR Not detected, Stl C.difficile Tox PCR Not detected, Stool Cryptosporidium PCR Not detected, Stl E.coli Shiga Tox PCR Not detected, Stool E coli O157 PCR Not detected, Stl Enterotoxigenic E PCR Not detected, Stool EPEC (PCR) Not detected, Stool EAEC (PCR) Not detected, Stl E. histolytica PCR Not detected, Stool Giardia Lamblia PCR Not detected, Stool Salmonella PCR Not detected, Stool Sapovirus (PCR) Not detected, Stl P. shigelloides PCR Not detected, Stl Shigella/EIEC PCR Not detected, St Y.enterocolitica PCR Not detected, Stool Vibrio (PCR) Not detected, Stl Vibrio cholerae PCR Not detected, Stl Norovirus GI/GII PCR Not detected 02/23/25 16:15 02/23/25 16:15 Orders (Tests/Meds): ED MEDICATIONS Generic Name Dose Route Start Last Admin Trade Name Freq PRN Reason Stop Dose Admin Acetaminophen 650 mg 02/23/25 21:42 Acetaminophen 325mg Tab PO 03/25/25 21:41 Q6HP PRN Fever or Mild Pain (1-3) Lactated Ringer's 1,000 mls @ 50 mls/hr 02/23/25 21:42 02/23/25 22:10 Lactated Ringer's 1000 Ml Bag IV 03/25/25 21:41 50 mls/hr .Q20H ARISTEO Administration Morphine Sulfate 4 mg 02/23/25 22:34 02/23/25 22:46 Morphine 4mg/Ml Syringe IV 03/25/25 22:33 4 mg Q4HP PRN Administration PAIN 7-10 Oxycodone HCl 10 mg 02/24/25 05:00 Oxycodone 5mg Immediate Release Tablet PO 03/25/25 18:29 5XDAY ARISTEO Promethazine HCl 25 mg 02/23/25 22:34 02/23/25 22:46 Promethazine Hcl 25mg/Ml 1ml Vial IV 03/25/25 22:33 25 mg Q6HP PRN Administration Nausea And Vomiting Discontinued Medications Generic Name Dose Route Start Last Admin Trade Name Freq PRN Reason Stop Dose Admin Dicyclomine HCl 10 mg 02/23/25 18:35 02/23/25 18:37 Dicyclomine 10mg Capsule PO 02/23/25 18:36 10 mg ONCE ONE Administration Lactated Ringer's 500 mls @ 999 mls/hr 02/23/25 16:12 02/23/25 16:23 Lactated Ringer's 1000 Ml Bag IV 02/23/25 16:42 999 mls/hr .Q31M ONE Administration Iopamidol 75 ml 02/23/25 16:50 02/23/25 16:52 Iopamidol-370 (76%);100ml Bottle IV 02/23/25 16:51 75 ml ONCE ONE Administration Morphine Sulfate 4 mg 02/23/25 16:38 02/23/25 16:46 Morphine 4mg/Ml Syringe IV 02/23/25 16:39 4 mg ONCE ONE Administration Morphine Sulfate 4 mg 02/23/25 16:58 02/23/25 17:00 Morphine 4mg/Ml Syringe IV 02/23/25 16:59 4 mg ONCE ONE Administration Ondansetron HCl 4 mg 02/23/25 16:12 02/23/25 16:24 Ondansetron 4mg/2ml Vial IV 02/23/25 16:13 4 mg ONCE ONE Administration Oxycodone HCl 10 mg 02/23/25 18:30 02/23/25 22:25 Oxycodone 5mg Immediate Release Tablet PO 03/25/25 18:29 Not Given 5XDAY ARISTEO Sodium Chloride 10 ml 02/23/25 16:50 02/23/25 16:52 Sodium Chloride 0.9% 10ml Syr (Rad Only) IV 02/23/25 16:51 10 ml ONCE ONE Administration ORDERS Category Date Time Status CT abdomen pelvis w con Stat Cat Scan 02/23/25 16:09 Completed CBC w/Auto Diff [Complete Blood Count Auto Diff] Stat Lab 02/23/25 16:15 Completed CMP [Comprehensive Metabolic Panel] Stat Lab 02/23/25 16:15 Completed Diarrhea 23 Panel, PCR Stat Lab 02/23/25 16:15 Completed Lipase Stat Lab 02/23/25 16:15 Completed UA [Urinalysis and Microscopic] Stat Lab 02/23/25 16:00 Completed Medical Decision Narrative: This is a 29-year-old male patient, with past medical history of anxiety and GERD, who is presenting to the emergency department today for evaluation of abdominal pain, nausea, vomiting, and diarrhea. Vomit and diarrhea are nonbloody in nature. No melena. He does have a history of enteropathogenic E. coli. On initial evaluation the patient he was sitting upright no acute distress and was nontoxic appearance. He is hemodynamically stable, saturating well on room air, and is neurologically intact. On physical examination of the patient he does have diffuse abdominal pain which is most tender in the right lower quadrant. There is no rebound or guarding. His mucous membranes do appear dry. His heart and lungs are clear to auscultation bilaterally. Differential diagnosis to include enteritis, gastroenteritis, colitis, intra-abdominal abscess, appendicitis, diverticulitis, pancreatitis, urinary tract infection, among others. Initial workup to include hematologic labs as well as a CT scan of the abdomen and pelvis. Initial interventions to include 4 mg of morphine, 4 mg of Zofran, and 1 L of lactated Ringer's.' Labs personally interpreted by me demonstrate a white blood cell count of 15.3. There is a neutrophilic predominance of 11.3. There is no evidence of acute kidney injury or electrolyte derangement. Lipase is within normal limits. No evidence of urinary tract infection. CT scan of the abdomen and pelvis was personally interpreted by me and demonstrates no evidence of pneumoperitoneum. Official radiology read is in agreement states that there is findings consistent with gastroenteritis and a diarrheal component. On repeat assessment of the patient he is still experiencing significant pain. I have administered 4 mg of morphine additionally. After a while I did reevaluate the patient he was still experiencing intractable pain so I tried to transition him to oral medications with 10 mg of oxycodone and 10 mg of Bentyl. Following administration of these medications the patient did experience vomiting and was unable to keep these medications down. I discussed the patient's disposition with him further and he feels as if he necessitates admission due to intractable symptoms and he does not feel comfortable going home at this time. Therefore I did have an interactive discussion with the hospitalist service who agreed to evaluate the patient. After our discussion their evaluation they have agreed to admit the patient to their service and accept primary responsibility of the patient moving forward. Critical Care Critical Care Time Critical Care Time: No
[2025-02-23] MEDS: MORPHINE 4MG/ML SYRINGE 4 MG IV ×3 (16:46→22:46)
[2025-02-23] MEDS: SODIUM CHLORIDE 0.9% 10ML SYR (RAD ONLY) 10 ML IV (16:52)
[2025-02-23] MEDS: IOPAMIDOL-370 (76%);100ML BOTTLE 75 ML IV (16:52)
[2025-02-23 17:16] LABS: Bacteria,Urine Trace /lpf
[2025-02-23 17:17] LABS: Mucus,Urine 3+ /lpf
[2025-02-23] MEDS: OXYCODONE 5MG IMMEDIATE RELEASE TABLET 10 MG PO (18:37)
[2025-02-23] MEDS: LACTATED RINGERS 1000ML 1,000 ML 50 ML IV (22:10)
--- NOTE | 2025-02-23 22:10 | PC.NURSE ---
Patient arrived to floor via wheelchair from ED 22:00.
[2025-02-23] MEDS: PROMETHAZINE HCL 25MG/ML 1ML VIAL 25 MG IV (22:46)
--- NOTE | 2025-02-24 00:08 | PC.NURSE ---
Patient complained of abdominal pain and nausea. Contacted regarding patients' complaints. New orders received, see MAR.
[2025-02-24 04:00] VITALS: BP 133/75; PULSE 74; RESP 16; TEMP 36.6; O2SAT 98; BMI 41.1
--- NOTE | 2025-02-24 06:17 | PC.NURSE ---
Patient is alert and oriented x4. Patient ambulates independently. Patient complained of abdominal pain and nausea during shift. Patient received PRN ordered medications, Morphine and Phenergan, to address symptoms. Patient hasn't had any further complaints of nausea or abdominal pain during shift. Patients' call light is within reach. Patient is currently resting with no needs or concerns voiced at this time.
[2025-02-24 08:00] VITALS: BP 109/55; PULSE 90; RESP 14; TEMP 36.6; O2SAT 97
--- NOTE | 2025-02-24 08:37 | EXP.HP ---
History of Present Illness *Admission Date: 02/23/25 *Reason for visit:: Abd pain *History of present illness: Mr. Lopez is 29 year old patient of [facility] who reports awakening from sleep yesterday morning being sick with nausea , vomiting and diarrhea. He states emesis contained ingested food, no blood. He also denies blood in his bowel movements. He also reports decreased amount of urine output. He was unable to get relief from his symptoms and his abdominal pain worsened so he came to the ER for an evaluation. [facility] Disclaimer: The information contained in this section may have been updated after the patient was seen, as this information can be updated by other users. 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 Viral syndrome Sinusitis Libido, decreased Fatigue Hypogonadism Acute streptococcal pharyngitis URI (upper respiratory infection) Sore throat Bilateral otitis media Vitamin D deficiency GERD (gastroesophageal reflux disease) Hypertension Depression Anxiety Post-concussional syndrome Head injury due to trauma Strep throat Abdominal pain Sprain of right foot Exposure to COVID-19 virus Surgical History No significant past surgical history Family History No significant family history Social History Smoking Status: Never smoker alcohol intake: never current occupational status: employed Travel in the last 8 weeks?: None Have you lived/traveled outside US in past 30 days?: No Contact w/someone who lives/traveled outside US past 30 days?: No Exposure to someone with infectious disease in past 14 days?: No Do you have a fever (greater than 100.4 F or 38 C)?: No Have you tested positive for COVID-19?: No Exposed to someone with COVID-19 in past 14 days?: No Do you have a sore throat?: No Do you have a cough?: No Do you have any weakness?: No Do you have any diarrhea?: No Are you experiencing any unusual bleeding?: No Do you have any muscle aches/pain?: No Do you have any abdominal pain?: No Are you experiencing loss of taste or smell?: No Other 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 Have you received the Flu Vaccine for this season: No Have you received the Pneumonia Vaccine: No Review of Systems Constitutional Constitutional: Denies chills and Denies fever(s) ENT Ears, Nose, Mouth, and Throat: Denies dizziness *Cardiovascular Cardiovascular: Denies chest pain and Denies dyspnea *Respiratory Respiratory: Denies dyspnea *Gastrointestinal Gastrointestinal: Reports as per HPI *Genitourinary Genitourinary: Denies difficulty urinating *Musculoskeletal Musculoskeletal: Denies back pain *Neurologic Neurologic: Denies dizziness Meds Home Medications and Allergies Home Medications ?Medication ?Instructions ?Recorded ?Confirmed ?Type duloxetine 60 mg capsule,delayed 60 mg PO BID 01/09/24 02/24/25 History release pantoprazole 40 mg tablet,delayed 40 mg PO DAILY 01/09/24 02/24/25 History release New Prescriptions to Start Prescriptions: Allergies Allergy/AdvReac Type Severity Reaction Status Date / Time No Known Allergies Allergy Verified 10/08/24 17:20 Exam Data for Last 24 hours Vital signs and Labs for Last 24 Hours: Temp Pulse Resp BP Pulse Ox O2 Del Method 97.8 F 74 16 133/75 98 Room Air 02/24/25 04:00 02/24/25 04:00 02/24/25 04:00 02/24/25 04:00 02/24/25 04:00 02/24/25 06:54 Laboratory Results - last 24 hr 02/23/25 16:00: Urine Color Yellow, Urine Appearance Clear, Urine pH 5.5, Ur Specific [place] >= 1.030, Urine Protein Negative, Urine Glucose (UA) Negative, Urine Ketones Negative, Urine Blood Negative, Urine Nitrate Negative, Urine Bilirubin Negative, Urine Urobilinogen 0.2, Ur Leukocyte Esterase Negative, Urine RBC None, Urine WBC 3-5, Ur Squamous Epith Cells 3-5, Urine Bacteria Trace, Urine Mucus 3+ 02/23/25 16:15: WBC 15.3 H, RBC 5.70, Hgb 15.3, Hct 45.7, MCV 80.2, MCH 26.8 L, MCHC 33.5, RDW 13.7, Plt Count 387, MPV 8.7, Neut % (Auto) 74.0, Lymph % (Auto) 18.8, [place] % (Auto) 5.4, Eos % (Auto) 1.0, Baso % (Auto) 0.5, Neut # (Auto) 11.3 H, Lymph # (Auto) 2.9, [place] # (Auto) 0.8, Eos # (Auto) 0.2, Baso # (Auto) 0.1, Sodium 138, Potassium 3.6, Chloride 105, Carbon Dioxide 23, Anion Gap 13.6, BUN 13, Creatinine 0.70, Estimated Creat Clear 331 H, Estimated GFR 135, Est GFR ( Amer) 164, Glucose 134 H, Calcium 9.6, Total Bilirubin 1.2, AST 36, ALT 44, Alkaline Phosphatase 93, Total Protein 8.1, Albumin 4.7, Globulin 3.4 H, Albumin/Globulin Ratio 1.4, Lipase 56, Stl C. cayetanensis PCR Not detected, Stool Rotavirus (PCR) Not detected, Stl Adenov F 40/41 PCR Not detected, Stool Astrovirus (PCR) Not detected, Stool Campylobacter PCR Not detected, Stl C.difficile Tox PCR Not detected, Stool Cryptosporidium PCR Not detected, Stl E.coli Shiga Tox PCR Not detected, Stool E coli O157 PCR Not detected, Stl Enterotoxigenic E PCR Not detected, Stool EPEC (PCR) Not detected, Stool EAEC (PCR) Not detected, Stl E. histolytica PCR Not detected, Stool Giardia Lamblia PCR Not detected, Stool Salmonella PCR Not detected, Stool Sapovirus (PCR) Not detected, Stl P. shigelloides PCR Not detected, Stl Shigella/EIEC PCR Not detected, St Y.enterocolitica PCR Not detected, Stool Vibrio (PCR) Not detected, Stl Vibrio cholerae PCR Not detected, Stl Norovirus GI/GII PCR Not detected I & O for Last 24 hours: Intake & Output 02/21/25 02/22/25 02/23/25 02/24/25 23:59 23:59 23:59 23:59 Intake Total 100 / 100 Output Total 0 / 0 Balance 100 / 100 Weight 331 lb 3 oz 331 lb 2.995 oz Constitutional Constitutional: no acute distress *Routine HEENT Exam Head: Present normocephalic Eye: Present EOMI and PERRL ENT: Present mucous membranes moist *Routine Neck Exam Neck: Present supple; Absent lymphadenopathy *Routine Respiratory Exam Respiratory: Present CTA bilaterally *Routine Cardiovascular Exam Cardiovascular: Present RRR *Routine Abdominal Exam Abdominal: Present soft, normoactive bowel sounds and tenderness (diffuse tenderness to deep palpation); Absent distended, rebound or guarding *Routine Rectal Exam Rectal:: deferred *Routine Genitalia Exam Genitalia:: deferred *Routine Extremities Exam Extremities: Absent cyanosis, clubbing or edema *Routine Skin Exam Skin: Present warm; Absent rash *Routine Neurological Exam Neurological: Present alert and oriented X3 Assessment and Plan *Assessment and plan (1) Gastroenteritis: Status: Acute Category: Medical Code(s): K52.9 - Noninfective gastroenteritis and colitis, unspecified (2) Abdominal pain: Status: Acute Qualifiers: Abdominal location: generalized Qualified Code(s): R10.84 - Generalized abdominal pain Category: Medical Code(s): R10.9 - Unspecified abdominal pain (3) Nausea vomiting and diarrhea: Status: Acute Category: Medical Code(s): R11.2 - Nausea with vomiting, unspecified; R19.7 - Diarrhea, unspecified Plan Patient admitted for further evaluation and management. Plan to start antibiotics today and decrease to a full liquid diet, will stop the Oxycodone that was ordered.
[2025-02-24] MEDS: PROMETHAZINE HCL 25MG/ML 1ML VIAL 25 MG IV ×2 (09:23→21:13)
--- NOTE | 2025-02-24 09:33 | HMH.PHAINT1 ---
Pharmacy Intervention Comments: MEDICATION RECONCILIATION COMPLETED ON PATIENT USING EXTERNAL FILL HISTORY FROM PHARMACY. -CRISTIAN BROCK, HERNAND
[2025-02-24] MEDS: CEFTRIAXONE 1 GM 1 GM in 0.9 % SODIUM CHLORIDE 50 ML IV (10:21)
[2025-02-24] MEDS: 0.9 % SODIUM CHLORIDE 1000ML 1,000 ML 100 ML IV ×2 (10:21→21:14)
[2025-02-24 13:54] VITALS: BP 127/60; PULSE 83; RESP 16; TEMP 36.5; O2SAT 16
[2025-02-24 16:00] VITALS: BP 146/64; PULSE 79; RESP 16; TEMP 36.8; O2SAT 96
--- NOTE | 2025-02-24 19:43 | PC.NURSE ---
Pt is A&Ox4. Vital signs stable tolerating room air. IV abx and fluids infusing. Pt complains of nausea. PRN nausea medication given. Pt continues to report having diarrhea. Tolerating full liquids. Pt resting comfortably in bed with no further needs voiced at this time. Call light within reach
[2025-02-24 20:00] VITALS: BP 125/66; PULSE 88; RESP 17; TEMP 37; O2SAT 99
[2025-02-25] MEDS: PROMETHAZINE HCL 25MG/ML 1ML VIAL 25 MG IV (03:55)
[2025-02-25] MEDS: MORPHINE 4MG/ML SYRINGE 4 MG IV (03:55)
[2025-02-25 04:00] VITALS: BP 137/65; PULSE 93; RESP 17; TEMP 36.8; O2SAT 98; BMI 41.3
--- NOTE | 2025-02-25 04:06 | PC.NURSE ---
0409 Blue bags have been emptied, table wiped and ice filled. Patient does not need anything at this time.
--- NOTE | 2025-02-25 04:30 | PC.NURSE ---
Patient is alert and oriented x 4. Patient is independent and up ad toñito. Patient is on room air. Patient complained of nausea near the beginning of the shift. Patient had a PRN order for Phenergan, which was administered. Patient was resting with no other complaints for a few hours. Patient later awoken to abdominal pain and nausea. Patient was given PRN medications, Morphine and Phenergan, to address symptoms. Went back to assess patient after PRN medications were adminstered and patient states abdominal pain is now tolerable and nausea has ceased. Patiently is currently resting in bed with no other complaints. Patients' call light is within reach and no other needs or concerns voiced at this time.
[2025-02-25 06:21] LABS: Hematocrit 40.6 % (42.0-52.0); Hemoglobin 12.8 g/dL (14.1-18.0); Immature Granulocytes % 0.3 %; Mean Corpuscular HGB Conc 31.5 g/dL (31.8-35.4); Mean Corpuscular Hemoglobin 25.7 pg (27.0-31.2); Mean Corpuscular Volume 81.5 fl (80-94); Nucleated Red Blood Cells % 0 %; Platelet Count 286 K/mm3 (142-424); Red Blood Count 4.98 M/mm3 (4.60-6.20); Red Cell Distribution Width-SD 40.3 fL; White Blood Count 10.1 K/mm3 (4.8-10.8)
[2025-02-25 06:39] LABS: Alanine Aminotransferase 35 U/L (12-78); Albumin Level 3.8 g/dl (3.5-5.0); Albumin/Globulin Ratio 1.5 (1.1-1.8); Alkaline Phosphatase 75 U/L (38-126); Anion Gap 8.9 mEq/L (5-15); Aspartate Amino Transferase 30 U/L (17-59); Bilirubin,Total 1.2 mg/dl (0.2-1.3); Blood Urea Nitrogen 10 mg/dl (9-20); Calcium 9.1 mg/dl (8.4-10.2); Carbon Dioxide 26 mmol/L (22.0-30.0); Chloride 106 mmol/L (98-107); Creatinine Clearance Estimated 166 mL/min (50-200); Creatinine,Serum 0.80 mg/dl (0.66-1.25); Estimated Glomerular Filt Rate 116 ml/min (>60); GFR (African American) 140 ML/MIN (>60); Globulin 2.5 g/dL (1.3-3.2); Glucose 112 mg/dl (74-100); Potassium 3.9 mmoL/L (3.5-5.1); Sodium 137 mmol/L (136-145); Total Protein,Serum 6.3 g/dl (6.3-8.2)
[2025-02-25 08:00] VITALS: BP 127/85; PULSE 85; RESP 14; TEMP 36.5; O2SAT 97
[2025-02-25] MEDS: CEFTRIAXONE 1 GM 1 GM in 0.9 % SODIUM CHLORIDE 50 ML IV (08:32)
--- NOTE | 2025-02-25 08:33 | EXP.ACUTE.PN ---
Subjective *Date: 02/25/25 *Time: 08:33 Interval history: Patient feels better today, tolerating full liquid diet. Medical Exam Vital signs and Labs for Last 24 Hours: Vital Signs Temp Pulse Resp BP Pulse Ox O2 Del Method 02/25/25 06:41 Room Air 02/25/25 05:00 Room Air 02/25/25 04:00 98.2 F 93 H 17 137/65 98 02/25/25 03:00 Room Air 02/25/25 01:00 Room Air 02/24/25 23:00 Room Air 02/24/25 21:00 Room Air 02/24/25 20:00 99 Room Air 02/24/25 20:00 98.6 F 88 17 125/66 99 Room Air 02/24/25 19:00 Room Air 02/24/25 17:00 Room Air 02/24/25 16:00 98.3 F 79 16 146/64 H 96 Room Air 02/24/25 15:00 Room Air 02/24/25 13:54 97.7 F 83 16 127/60 16 L Room Air 02/24/25 13:00 Room Air 02/24/25 11:00 Room Air 02/24/25 09:00 Room Air Intake and Output 02/24/25 02/25/25 02/25/25 23:59 07:59 15:59 Intake Total 480 / 1440 500 / 500 Balance 480 / 1140 500 / 500 Intake: Intake, Oral Amount 480 / 1090 250 / 250 Intake, Total IV Amount 250 / 250 Lactated Ringers 1000ML 1,000 250 / 250 ml @ 50 mls/hr IV .Q20H [facility] Rx# :[id number] Other: Number of Unmeasured Voids 1 1 Number of Bowel Movements 3 Weight 332 lb 6.4 oz Patient Weight 02/25/25 23:59 Weight 332 lb 6.4 oz Laboratory Results - last 24 hr 02/25/25 05:41: WBC 10.1 D, RBC 4.98, Hgb 12.8 L, Hct 40.6 L, MCV 81.5, MCH 25.7 L, MCHC 31.5 L, RDW 13.7, Plt Count 286 D, MPV 9.0, Neut % (Auto) 59.5, Lymph % (Auto) 29.6, [place] % (Auto) 6.1, Eos % (Auto) 4.1, Baso % (Auto) 0.4, Neut # (Auto) 6.0, Lymph # (Auto) 3.0, [place] # (Auto) 0.6, Eos # (Auto) 0.4, Baso # (Auto) 0.0, Sodium 137, Potassium 3.9, Chloride 106, Carbon Dioxide 26, Anion Gap 8.9, BUN 10, Creatinine 0.80, Estimated Creat Clear 166, Estimated GFR 116, Est GFR ( Amer) 140, Glucose 112 H, Calcium 9.1, Total Bilirubin 1.2, AST 30, ALT 35, Alkaline Phosphatase 75, Total Protein 6.3, Albumin 3.8, Globulin 2.5, Albumin/Globulin Ratio 1.5 I & O for Labs for Last 24 Hours: Intake & Output 02/22/25 02/23/25 02/24/25 02/25/25 23:59 23:59 23:59 23:59 Intake Total 940 / 1440 500 / 500 Output Total 300 / 300 Balance 640 / 1140 500 / 500 Weight 331 lb 3 oz 331 lb 2.995 oz 332 lb 6.4 oz Constitutional: Present no acute distress Respiratory: Present normal respiratory effort Cardiac: Present Reg Rate and Rhythm GI: Present tenderness (minimal) and normal bowel sounds Extremities: Present normal inspection and full ROM Skin: Present intact; Absent erythema Neuro: Present Grossly Intact and moves all extremities Assessment and Plan *Assessment and plan (1) Gastroenteritis: Status: Acute Category: Medical Code(s): K52.9 - Noninfective gastroenteritis and colitis, unspecified (2) Abdominal pain: Status: Acute Qualifiers: Abdominal location: generalized Qualified Code(s): R10.84 - Generalized abdominal pain Category: Medical Code(s): R10.9 - Unspecified abdominal pain (3) Nausea vomiting and diarrhea: Status: Acute Category: Medical Code(s): R11.2 - Nausea with vomiting, unspecified; R19.7 - Diarrhea, unspecified Plan Improved, probable discharge home after dose of Rocephin this morning, saline lock IVF.
--- NOTE | 2025-02-28 19:39 | P.DS_ITS ---
General Admission date:: 02/23/25 Discharge date: 02/25/25 HPI HPI HPI: Mr. Lopez is 29 year old patient of [facility] who reports awakening from sleep yesterday morning being sick with nausea , vomiting and diarrhea. He states emesis contained ingested food, no blood. He also denies blood in his bowel movements. He also reports decreased amount of urine output. He was unable to get relief from his symptoms and his abdominal pain worsened so he came to the ER for an evaluation. Hospital Course Hospital Course Hospital Course: Patient was started on IV fluids and IV antibiotics. Diet was decreased to full liquid diet for better GI rest. Oxycodone for abdominal pain was discontinued as it seemed to cause more nausea and vomiting. He received IV morphine for his abdominal pain and Zofran for his nausea. He felt better the following day. White count did decrease from 15,000 down to 10,000. He received another dose of IV Rocephin and by the afternoon he was better. He was able to be discharged home. Discharged home on Ceftin, dicyclomine and Zofran. He was to follow-up with Kim Draper on 03/11/2025. Exam Data for Last 24 hours Vital signs and Labs for Last 24 Hours: Temp Pulse Resp BP Pulse Ox O2 Del Method 97.7 F 85 14 127/85 97 Room Air 02/25/25 08:00 02/25/25 08:00 02/25/25 08:00 02/25/25 08:00 02/25/25 08:00 02/25/25 13:00 I & O for Last 24 hours: Intake & Output 02/26/25 02/27/25 02/28/25 03/01/25 11:59 11:59 11:59 11:59 Intake Total 600 / 600 Balance 600 / 600 Narrative: PE at [facility] 02/25/2025 Constitutional: Present no acute distress Respiratory: Present normal respiratory effort Cardiac: Present Reg Rate and Rhythm GI: Present tenderness (minimal) and normal bowel sounds Extremities: Present normal inspection and full ROM Skin: Present intact; Absent erythema Neuro: Present Grossly Intact and moves all extremities Results Data Completed and Pending Completed studies during hospitalization [Text1]: 02/23/2025 CT of Abd/pelvis IMPRESSION: 1. Mildly fluid distended small bowel loops and mild fluid scattered throughout the colon more pronounced in the proximal colon and distal colon. Findings suggest possible gastroenteritis with associated diarrheal component. 2. A 18 mm round hyperdense lesion noted in the inferior right lobe of liver not seen on prior CT of 05/06/2024. Further evaluation with non-emergent liver MRI is recommended. (Reference: Key) 02/25/25 05:41: WBC 10.1 D, RBC 4.98, Hgb 12.8 L, Hct 40.6 L, MCV 81.5, MCH 25.7 L, MCHC 31.5 L, RDW 13.7, Plt Count 286 D, MPV 9.0, Neut % (Auto) 59.5, Lymph % (Auto) 29.6, [place]pp % (Auto) 6.1, Eos % (Auto) 4.1, Baso % (Auto) 0.4, Neut # (Auto) 6.0, Lymph # (Auto) 3.0, Tripp # (Auto) 0.6, Eos # (Auto) 0.4, Baso # (Auto) 0.0, Sodium 137, Potassium 3.9, Chloride 106, Carbon Dioxide 26, Anion Gap 8.9, BUN 10, Creatinine 0.80, Estimated Creat Clear 166, Estimated GFR 116, Est GFR ( Amer) 140, Glucose 112 H, Calcium 9.1, Total Bilirubin 1.2, AST 30, ALT 35, Alkaline Phosphatase 75, Total Protein 6.3, Albumin 3.8, Globulin 2.5, Albumin/Globulin Ratio 1.5 02/23/25 16:00: Urine Color Yellow, Urine Appearance Clear, Urine pH 5.5, Ur Specific [place] >= 1.030, Urine Protein Negative, Urine Glucose (UA) Negative, Urine Ketones Negative, Urine Blood Negative, Urine Nitrate Negative, Urine Bilirubin Negative, Urine Urobilinogen 0.2, Ur Leukocyte Esterase Negative, Urine RBC None, Urine WBC 3-5, Ur Squamous Epith Cells 3-5, Urine Bacteria Trace, Urine Mucus 3+ 02/23/25 16:15: WBC 15.3 H, RBC 5.70, Hgb 15.3, Hct 45.7, MCV 80.2, MCH 26.8 L, MCHC 33.5, RDW 13.7, Plt Count 387, MPV 8.7, Neut % (Auto) 74.0, Lymph % (Auto) 18.8, [place]pp % (Auto) 5.4, Eos % (Auto) 1.0, Baso % (Auto) 0.5, Neut # (Auto) 11.3 H, Lymph # (Auto) 2.9, Tripp # (Auto) 0.8, Eos # (Auto) 0.2, Baso # (Auto) 0.1, Sodium 138, Potassium 3.6, Chloride 105, Carbon Dioxide 23, Anion Gap 13.6, BUN 13, Creatinine 0.70, Estimated Creat Clear 331 H, Estimated GFR 135, Est GFR ( Amer) 164, Glucose 134 H, Calcium 9.6, Total Bilirubin 1.2, AST 36, ALT 44, Alkaline Phosphatase 93, Total Protein 8.1, Albumin 4.7, Globulin 3.4 H, Albumin/Globulin Ratio 1.4, Lipase 56, Stl C. cayetanensis PCR Not detected, Stool Rotavirus (PCR) Not detected, Stl Adenov F 40/41 PCR Not detected, Stool Astrovirus (PCR) Not detected, Stool Campylobacter PCR Not detected, Stl C.difficile Tox PCR Not detected, Stool Cryptosporidium PCR Not detected, Stl E.coli Shiga Tox PCR Not detected, Stool E coli O157 PCR Not detected, Stl Enterotoxigenic E PCR Not detected, Stool EPEC (PCR) Not detected, Stool EAEC (PCR) Not detected, Stl E. histolytica PCR Not detected, Stool Giardia Lamblia PCR Not detected, Stool Salmonella PCR Not detected, Stool Sapovirus (PCR) Not detected, Stl P. shigelloides PCR Not detected, Stl Shigella/EIEC PCR Not detected, St Y.enterocolitica PCR Not detected, Stool Vibrio (PCR) Not detected, Stl Vibrio cholerae PCR Not detected, Stl Norovirus GI/GII PCR Not detected DS: Diagnosis Discharge Diagnosis (1) Gastroenteritis: Status: Acute Code(s): K52.9 - Noninfective gastroenteritis and colitis, unspecified (2) Abdominal pain: Status: Acute Code(s): R10.9 - Unspecified abdominal pain Qualifiers: Abdominal location: generalized Qualified Code(s): R10.84 - Generalized abdominal pain (3) Nausea vomiting and diarrhea: Status: Acute Code(s): R11.2 - Nausea with vomiting, unspecified; R19.7 - Diarrhea, unspecified Meds Home Medications and Allergies Home Medications ?Medication ?Instructions ?Recorded ?Confirmed ?Type duloxetine 60 mg capsule,delayed 120 mg PO DAILY 01/0802/24/25 History release pantoprazole 40 mg tablet,delayed 40 mg PO DAILY 01/0802/24/25 History release cefuroxime axetil 500 mg tablet 500 mg PO BID #6 tabs 02/25/25 Rx dicyclomine 10 mg capsule 10 mg PO TIDP PRN abdominal pain 02/25/25 Rx #30 caps ondansetron HCl 4 mg tablet 4 mg PO Q8H PRN nausea and 02/25/25 Rx vomiting #12 tabs New Prescriptions to Start Prescriptions: cefuroxime axetil Karsten Draper dicyclomine Karsten Draper ondansetron HCl Karsten Draper Allergies Allergy/AdvReac Type Severity Reaction Status Date / Time No Known Allergies Allergy Verified 10/08/24 17:20 Discharge Plan Disposition Patient Disposition: Home, Self-Care Condition: Good Follow up Plan Follow up with: Karsten Draper MD [Primary Care Provider, Medical] - 03/11/25 10:15 am Prescriptions/Medication Reconciliation: New cefuroxime axetil 500 mg tablet 500 mg PO BID Qty: 6 0RF ondansetron HCl 4 mg tablet 4 mg PO Q8H PRN (Reason: nausea and vomiting) Qty: 12 0RF dicyclomine 10 mg capsule 10 mg PO TIDP PRN (Reason: abdominal pain) Qty: 30 0RF Continued pantoprazole 40 mg tablet,delayed release (DR/EC) 40 mg PO DAILY duloxetine 60 mg capsule,delayed release(DR/EC) 120 mg PO DAILY Problem Reconciliation Problems Reviewed?: Yes Patient Discharge Instructions ACTIVITY: Continue current activity DIET: advance to your usual diet Patient Instructions: DI for Abdominal Pain-Adult Print Language: Palestinian Providers Primary Care Provider: Karsten Draper Admit Provider: Karsten Draper Attending Provider: Karsten Draper
--- NOTE | 2025-03-01 11:50 | SW/DCPLANNER ---
Spoke with patient on the phone. Patient stated that he is doing good. Patient stated that he was able to get his new medicine picked up at [facility]. Patient stated that he is aware of his upcoming appointment. Patient stated that he has no concerns or questions at this time. Stan Lepe
== END 2025-02-25 13:39 | disposition home or self-care (01) ==
LOC: ER 16:09 → 2ND 21:55
PROVIDERS: Admitting Provider Family Medicine; Emergency Provider Student in an Organized Health Care Education/Training Program; PCP Family Medicine; Visit Provider Family Medicine
DX: K52.9 Noninfective gastroenteritis and colitis, unspecified (principal); K21.9 Gastro-esophageal reflux disease without esophagitis; F41.9 Anxiety disorder, unspecified; K76.9 Liver disease, unspecified; F32.A Depression, unspecified; Z79.899 Other long term (current) drug therapy
CPT/HCPCS: 96361 ×3; 96365; 96375 ×2; 96376 ×2; 36415; 74177; 80053; 81001; 83690; 85025; 87507; G0378; J0696; J1650; J2270; J2405; J2550; J7030; J7120; Q9967

== ENCOUNTER 2025-03-26 08:12 | Outpatient (CLI) | payer BC, SELFPAY ==
--- NOTE | 2025-03-26 08:16 | MR_ITS ---
PROCEDURE INFORMATION: Exam: MR Abdomen Without and With Contrast; Liver Exam date and time: 03/26/2025 8:36 AM Age: 29 years old Clinical indication: Abnormal findings; Abnormal radiologic finding of the abdomen; Radiologic exam and body structure: CT abdomen with contrast; Prior CT scan 02/23/25; Additional info: Neoplasm of uncertain behavior TECHNIQUE: Imaging protocol: MR Abdomen with and without intravenous contrast. Exam focused on the liver. Contrast material: PROHANCE; Contrast volume: 30 ml; Contrast route: IV; COMPARISON: CT ABDOMEN PELVIS W CON 02/23/2025 4:51 PM FINDINGS: Liver: Moderately fatty liver with a hepatic fat fraction of approximately 25%. Hepatomegaly, measuring 24 cm in craniocaudal axis. Focal liver lesion in the right hepatic lobe exhibits mildly hyperintense intrinsic signal on T1FS relative to the surrounding liver parenchyma and isointense signal on T2 weighted sequence. No significant signal dropout is demonstrated within the lesion on in-and-out of phase imaging. Post-contrast imaging demonstrates flash peripheral arterial filling that progresses to homogeneous hyperenhancement on portal venous phase with sustained enhancement on hepatobiliary phase. DWI/ADC demonstrates no significant restricted diffusion. Focal fatty sparing is also noted along the gallbladder fossa. No suspicious liver lesions. Gallbladder and biliary ducts: Unremarkable. Pancreas: Unremarkable. Spleen: No splenomegaly. Kidneys: No solid renal mass. No hydronephrosis. Intraperitoneal space: No free fluid or focal fluid collection. Lymph nodes: No pathologically enlarged lymph nodes by imaging criteria. Bones/joints: Unremarkable as visualized. IMPRESSION: Moderately fatty liver and hepatomegaly. Findings pose significantly increased risk for developing cirrhosis and/or hepatocellular carcinoma. Recommend non-emergent referral to Hepatology.
[2025-03-26] MEDS: GADOTERIDOL INJ 10ML SYRINGE 10 ML IV (09:10)
[2025-03-26] MEDS: GADOTERIDOL INJ 20ML SYRINGE 20 ML IV (09:10)
== END 2025-03-26 23:59 | disposition home or self-care (01) ==
LOC: RAD 08:13
PROVIDERS: PCP Family Medicine; Visit Provider Family Medicine
DX: K76.0 Fatty (change of) liver, not elsewhere classified (principal); R16.0 Hepatomegaly, not elsewhere classified
CPT/HCPCS: 74183; A9576

== ENCOUNTER 2025-03-31 05:55 | Emergency (ER) | payer BC, SELFPAY ==
--- OUTSIDE RECORDS SUMMARY | 2024-11-30 13:00 | XMS_ITS ---
Author Organization Delicia Address [facility] [address] [place] [id number] Care Team Providers Care Claims Adjuster Name Role Phone Karsten Draper Unavailable [phone] Allergies No Known Allergies REASON FOR VISIT weight loss Medications Medication SIG (Take, Route, Frequency, Duration) Notes Start Date End Date Status Pantoprazole Sodium 40 MG 1 tablet Orall y Once a day; Duration: 30 day(s) Active Vitamin D3 1.25 MG (04151 UT) 1 capsule Orally Once a week 02/12/2024 Active DULoxetine HCl 60 MG 2 capsule Orally On ce a day; Duration: 30 day(s) 10/14/2023 Active Irbesartan 300 MG 1 tablet Orally Once a day 02/10/2024 Active Problems Problem Type SNOMED Code ICD Code Onset Dates Problem Status W/U Status Risk Notes Problem Essential hypertension (58498602) Essential hypertension (I10) Active confirmed Problem Gastroesophageal reflux disease (929695869) Gastroesophageal reflux disease, unspecified whether esophagitis present (K21.9) Active confirmed Problem Body mass index 40+ - morbidly obese (461750389) BMI 40.0-44.9, adult (Z68.41) Active confirmed Vital Signs Weight 348.2 lbs 11/30/2024 Blood pressure systolic 160 mm Hg 12/01/19 25 Blood pressure diastolic 84 mm Hg 025 Heart Rate 104 /min 11/30/2024 Height 75 in 11/30/2024 BMI 43.52 kg/m2 11/30/2024 Encounters Encounter Location Date Provider Diagnosis [facility] [address] [place] [phone] 11/30/2024 Karsten Draper Morbid obesity E66.0 1 [...] MG 1 tablet Orall y Once a day; Duration: 30 day(s) Irbesartan 300 MG 1 tablet Orally Once a day 02/10/2024 Treatment Notes Assessment Notes Morbid obesity Discussed starting W egovy Next Appt Details Follow Up: 2 Months fasting, Reason: Provider Name:Karsten Mccurdy ry, 04/26/2025 05:00:00 PM, [address] [facility] 36 [facility], [address], [phone], Progress Notes * ESTEPHANIAFANTAKASIA ADOB:1995 (29 yo M)Acc No.[id number]:11/30/2024 Progress Notes Patient: KASIA STROUD Provider: Arina Draper M.D. :1995 A ge:29 Y S ex:Male Date:11/30/2024 Address:[address] [place], [place] [phone] Subjective: * Chief Complaints: * 1 . [...] History. * Hospitalization/Major Diagno stic Procedure: H [facility] ER - Abdominal Pain w/ Vomiting 06/04/2023. [...] day , Taking Vitamin D3 1.25 MG (85268 UT) Capsule 1 capsule Orally Once a week , Not-Taking Pantoprazole Sodium 40 MG Tablet Delayed Release 1 tablet Orally Once a day , Medication List reviewed and reconciled with the patient * Allergies: N .K.D.A. Objective: * Vitals: W t: 348.2, Temp: 97.8, BP: 160/84, HR: 104, Nurse: kiara, Ht: 75, BMI:43.52. * Examination: C ardiology: General Appearance: p leasant, NAD. H EENT: u nremarkable. H eart sounds: R RR, normal S1, S2. L ungs: c lear, no rales or wheezes.?Extremities: n o leg edema. P eripheral pulses: 2 plus bilateral. ? Assessment: * Assessment: 1. M orbid obesity - E66.01 (Primary) 2 . E ssential hypertension - I10? 3. G astroesophageal reflux disease, unspecified whether esophagitis present - K21.9 4 . B ID 40.0-44.9, adult - Z68.41 Plan: * Treatment: [...] * Follow Up: 2 Months fasting * Images: Billing Information: * Visit Code: 36920 Office Visit, Est Pt., Level 4. * Procedure Codes: 3077F SYST BP = 140 MM HG6 IT. 3079F DIAST BP 80-89 MM HG. * Electronic signature of Michelle Draper MD on 03/31/2025 at 06:02 AM EDT Sign off status: Pending * Provider: Arina Draper M.D. Date: 0 11/30/2024 Generated for Nelson hunter/Héctor/Rusty on: 03/31/2025 06:02 AM EDT History and Physical Notes * HPI [...]
--- OUTSIDE RECORDS SUMMARY | 2025-01-01 11:45 | XMS_ITS ---
Author Organization Jen Address [address] [facility] [address] [place] [id number] Care Team Providers Care Printer Machine Name Role Phone Bonny Karsten Unavailable [phone] Allergies No Known Allergies REASON FOR VISIT [...] 30 day(s) Active Vitamin D3 1.25 MG (36208 UT) 1 capsule Orally Once a week 02/12/2024 Active Vital Signs Weight 336.8 lbs 01/01/2025 Blood pressure systolic 150 mm Hg 01/02/20 25 Blood pressure diastolic 789 mm Hg 025 Heart Rate 99 /min 01/01/2025 Height 75 in 01/01/2025 BMI 42.09 kg/m2 01/01/2025 Encounters Encounter Location Date Provider Diagnosis Jen [address] [facility] [address] [place] [phone] 01/01/2025 Karsten Draper Acute midline low ba [...] Mccurdy ry, 04/26/2025 05:00:00 PM, [address] [place] [facility] 36 [facility], [address], [place], [place], [phone], Progress Notes * ESTEPHANIA KASIA ADOB:1995 (29 yo M)Acc No.[id number]:01/01/2025 Progress Notes Patient: KASIA STROUD Provider: Arina Draper M.D. :1995 A ge:29 Y S ex:Male Date:01/01/2025 Address:[address] [place], [place] [phone] Subjective: * Chief Complaints: * 1 . [...] Medications: T aking Vitamin D3 1.25 MG (17344 UT) Capsule 1 capsule Orally Once a [...] * Images: Billing Information: * Visit Code: 25499 Office Visit, Est Pt., Level 3. * Procedure Codes: * Electronic signature of Michelle Draper MD on 03/31/2025 at 06:01 AM EDT Sign off status: Pending * Provider: Arina Draper M.D. Date: 0 01/01/2025 Generated for Nelson hunter/Héctor/Khalifitting on: 0 03/31/2025 06:01 AM EDT History and Physical Notes * [...]
--- OUTSIDE RECORDS SUMMARY | 2025-01-08 12:00 | XMS_ITS ---
Author Organization [place]icia Address 1210 [facility] [address] [place] [id number] Care Team Providers Care Tile Layer Helper Name Role Phone Karsten Draper Unavailable [phone] Allergies No Known Allergies Results Component Value [...] days 01/08/2025 Active Vitamin D3 1.25 MG (64676 UT) 1 capsule Orally Once a week 02/12/2024 Active Vital Signs Weight 345 lbs 01/08/2025 Blood pressure systolic 138 mm Hg 01/09/20 25 Blood pressure diastolic 84 mm Hg 025 Heart Rate 115 /min 01/08/2025 Height 75 in 01/08/2025 BMI 43.12 kg/m2 01/08/2025 Encounters Encounter Location Date Provider Diagnosis Jen 1210 [facility] 36 [facility] [address] [place] [id number] 01/08/2025 Karsten Draper Acute midline low ba [...] Name:Karsten Mccurdy ry, 04/26/2025 05:00:00 PM, 1210 [facility] 36 [facility], [address], [place], [place], [id number], Progress Notes * KASIA BEST ADOB:1995 (29 yo M)Acc No.[id number]:01/08/2025 Progress Notes Patient: KASIA STROUD Provider: Arina Draper M.D. :1995 A ge:29 Y S ex:Male Date:01/08/2025 Address:[address] [place] [address], [facility] Subjective: * Chief Complaints: * 1 . [...] Medications: T aking Vitamin D3 1.25 MG (49970 UT) Capsule 1 capsule Orally Once a [...] * Images: Billing Information: * Visit Code: 10045 Office Visit, Est Pt., Level 3. * Procedure Codes: * Electronic signature of Michelle Draper MD on 03/31/2025 at 06:02 AM EDT Sign off status: Pending * Provider: Arina Draper M.D. Date: 0 01/08/2025 Generated for Nelson hunter/Héctor/Rusty on: 0 03/31/2025 06:02 AM EDT History and Physical [...]
--- OUTSIDE RECORDS SUMMARY | 2025-02-02 05:00 | XMS_ITS ---
Author Organization Jen Address [address] [facility] 36 [facility] [address] [place] [id number] Care Team Providers Care Cap Blocker Name Role Phone Bonny Karsten Jewel [phone] Allergies No Known Allergies REASON FOR VISIT 2 months and fasting Encounters Encounter Location Date Provider Diagnosis Jen [facility] [address] [facility] [address] [place] [id number] 02/02/2025 Karsten Draper Plan Of Treatment Next Appt Details Provider Name:Karsten Mccurdy ry, 04/26/2025 05:00:00 PM, [facility] [address] [facility], [address], [place], [phone], Progress Notes * KASIA BEST ADOB:1995 (29 yo M)Acc No.[id number]:02/02/2025 Progress Notes Patient: KASIA STROUD Provider: Arina Draper M.D. :1995 A ge:29 Y S ex:Male Date:02/02/2025 Address:[address] [place] [address], [facility] Subjective: * Chief Complaints: * 1 . [...] M.D. Date: 0 02/02/2025 Generated for Nelson hunter/Héctor/Rusty on: 0 03/31/2025 06:02 AM EDT
--- OUTSIDE RECORDS SUMMARY | 2025-03-15 13:30 | XMS_ITS ---
Author Organization [facility] Address [address] [facility] [address] [place] [id number] Care Team Providers Care Feed Mixer Name Role Phone Karsten Draper Unavailable [phone] Allergies No Known Allergies Results Component Value Reference Range Notes MRI : Liver, with and withou t contrast Reviewed date:03/30/2025 08:30:40 AM Interpretation: Performing Lab: Notes/Report: REASON FOR VISIT [facility] D/C Medications Medication SIG (Take, Route, Frequency, Duration) Notes Start Date End Date Status DULoxetine HCl 60 MG 2 capsule Orally On ce a day; Duration: 30 day(s) 10/14/2023 Active Vitamin D3 1.25 MG (95855 UT) 1 capsule Orally Once a week [...] Provider Diagnosis [facility] [address] [facility] [address] [place] [id number] 03/15/2025 Karsten Draper Gastroenteritis K52. 9 and [...] [address], [address], [place], [place], [id number], Progress Notes * KASIA BEST ADOB:1995 (29 yo M)Acc No.[id number]:03/15/2025 Patient: Desiree BASIMKASIA Provider: Arina Draper M.D. :1995 A ge:29 Y S ex:Male Date:03/15/2025 Address:[address] [place] [address], [id number] Subjective: * Chief Complaints: * 1 . [...] Medications: T aking Vitamin D3 1.25 MG (46952 UT) Capsule 1 capsule Orally Once a [...] * Images: Billing Information: * Visit Code: 61363 Office Visit, Est Pt., Level 3. * Procedure Codes: 1036F TOBACCO NON-USER. 3075F SYST BP GE 130 - 139MM HG. 3079F DIAST BP 80-89 MM HG. * Electronic signature of Michelle Draper MD on 03/31/2025 at 06:02 AM EDT Sign off status: Pending * Provider: Arina Draper M.D. Date: 0 03/15/2025 Generated for Pushpai elsa/Héctor/eTransmitting on: 0 03/31/2025 06:02 AM EDT History and Physical Notes * HPI (History of Present Illness) Category Sub-Category Detail Notes Category Not es HPI Here for follow up on: [facility] hospi talization> Pt was seen at [...]
[2025-03-31] VITALS (8 sets, daily range): BP systolic 113–168; BP diastolic 51–95; PULSE 86–111; RESP 16–23; TEMP 36.7–36.8; O2SAT 94–98; BMI 29.9; BMI 42.5
--- OUTSIDE RECORDS SUMMARY | 2025-03-31 06:02 | XMS_ITS | Clinical Summary ---
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 or to get [...] Date Last Done Comments [facility]-Depression Screening 1997 [facility]-Infant/Child/Adol SDOH Screenings 1997 [facility]-Obesity Intervention 2003 [facility]-Varicella Vaccines (2 of 2 - 2-dose childhood series) 05/25/2009 03/02/2009 [facility]-Hepatitis A Vaccines (2 of 2 - 2-dose series) 09/02/2009 03/02/2009 [facility]- SDOH Screenings 2015 [facility]-Adult SDOH Screenings 2015 [facility]-Hepatitis B Vaccines (1 of 3 - 19+ 3-dose series) 2016 [facility]-DTaP,Tdap,and Td Vaccine s (2 - Td or Tdap) 03/02/2019 03/02/2009 [id number]-25 Vaccine (1 - season) 2024 HPV Vaccines (1 - 3-dose SCD M series) 2024 [facility]-Influenza Vaccine (#1) 2025 [facility]-Zoster Vaccines [...] Reactive Non Reactive 05/08/2024 10:28 AM EDT [facility] Comment:Screening for HIV 1 & 2 antibodies, and P24 antigen is NONREACTIVE. No confirmatory testing is required. Blood Venous blood specimen / Unknown Venipuncture / Unknown 05/08/2024 9:25 AM EDT 05/08/2024 9:46 AM EDT us Emily Perales MD LAB BLOOD ORDERABLES Final Res ult Performing Organization Address City/[facility]/ZIP Co de Phone Number [facility] [address] [place] [address] * Hepatitis C Antibody - ED (05/08/2024 9:25 AM EDT) Hepatitis C Antibody Negative Negative 05/08/2024 10:27 AM EDT [facility] Blood Venous blood specimen / Unknown Venipuncture / Unknown 05/08/2024 9:25 AM EDT 05/08/2024 9:46 AM EDT Emily Perales MD LAB BLOOD ORDERABLES Final Res ult [facility] [address] [place] [address] from Last 3 Months or Most Recently Relevant to [place] [address] [facility]
--- OUTSIDE RECORDS SUMMARY | 2025-03-31 06:02 | XMS_ITS | Patient Health Record ---
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 Name Role Phone Karsten Draper Unavailable [phone] Allergies No Known Allergies Results Component Value Reference Range Notes X ray : Spine, lumbosacral Reviewed date:01/12/2025 02:27:10 PM Interpretation:Negative Performing Lab: Notes/Report: Negative H-CBC Reviewed date:02/25/2025 08:07:41 AM Interpretation: Performing Lab: Notes/Report: WBC 10.1 4.8-10.8 K/mm3 Delta: 15.3 o n 02/23/25-1614 RBC 4.98 4.60-6.20 M/mm3 HGB 12.8 14.1-18.0 g/dL HCT 40.6 42.0-52.0 % MCV 81.5 80-94 fl MCH 25.7 27.0-31.2 pg MCHC 31.5 31.8-35.4 g/dL RDW-SD 40.3 RDW 13.7 11.5-17.5 % PLT 286 142-424 K/mm3 Delta: 387 on 02/23/25-1614 MPV 9.0 7.4-10.4 fl NE% 59.5 37.0-80.0 % LY% 29.6 10-50 % MO% 6.1 1.7-9.3 % EO% 4.1 0.1-12.0 % BA% 0.4 0.1-2.0 % NRBC% 0 IG% 0.3 NE# 6.0 1.8-7.8 K/mm3 LY# 3.0 0.7-4.5 K/mm3 MO# 0.6 0.1-1.0 K/mm3 EO# 0.4 0.0-0.4 Kmm3 BA# 0.0 0-0.2 K/mm3 NRBC# 0 IG# 0.03 H-CMP Reviewed date:02/25/2025 08:07:41 AM Interpretation: Performing Lab: Notes/Report: NA 137 136-145 mmol/L K 3.9 3.5-5.1 mmoL/L CL 106 98-107 mmol/L CO2 26 22.0-30.0 mmol/L GAP 8.9 5-15 mEq/L BUN 10 9-20 mg/dl CREATT 0.80 0.66-1.25 mg/dl CRCLE 166 50-200 mL/min GFRAA 140 >60 ML/MIN EGFR 116 >60 ml/min GLU 112 74-100 mg/dl CA 9.1 8.4-10.2 mg/dl BILIT 1.2 0.2-1.3 mg/dl AST 30 17-59 U/L ALT 35 12-78 U/L TP 6.3 6.3-8.2 g/dl ALB 3.8 3.5-5.0 g/dl GLOB 2.5 1.3-3.2 g/dL AGRATIO 1.5 1.1-1.8 ALP 75 38-126 U/L MRI : Liver, with and withou t contrast Reviewed date:03/30/2025 08:30:40 AM Interpretation: Performing Lab: Notes/Report: Reason For Referral Reason patient requests to be seen at [facility] Gastroenterology Diagnosis 1 Generalized abdomina l pain (R10.84) Diagnosis 2 History of IBS (Z87. 19) Referral Organization [facility] Referring Provider First Name Karsten Referring Provider Last Name Bonny Referring Provider Speciality Family [facility] ctice Referred Provider Specialty Gastroentero logy General Notes Alice Malik 024 4:03:53 PM > faxed referral to [facility] Gastroenterology Referral Priority Routine Medications Medication SIG (Take, Route, Frequency, Duration) Notes Start Date End Date Status DULoxetine HCl 60 MG 2 capsule Orally On ce a day; Duration: 30 day(s) 10/14/2023 Active Vitamin D3 1.25 MG (87238 UT) 1 capsule Orally Once a week [...] a day; Duration: 30 days 01/08/2025 Active Immunizations Vaccine Route Administration Date Status Comme nts Varivax Unknown 03/02/2009 Administered Tetanus Tdap-Adacel (over 7yrs) Unknown 03/02/2009 Admi nistered Hep A- Pediatric Unknown 03/02/2009 Administered Problems Problem Type SNOMED Code ICD Code Onset Dates Problem Status W/U Status Risk Notes Problem Vitamin D deficiency (56947374) Vitamin D deficiency (E55.9) Active confirmed Problem Essential hypertension (15263254) Essential hypertension (I10) Active confirmed Problem Morbid obesity (983133789) Morbid obesity (E66.01) Active confirmed Problem Anxiety (53720976) Anxiety (F41.9) Active confi rmed Problem Adjustment disorder with mixed anxiety and depressed mood (918405691) Adjustment disorder with mixed anxiety and depressed mood (F43.23) Active confirmed Problem Chronic pain (99687554) Other chronic pain (G89.29) Active confirmed Problem Body mass index 40+ - morbidly obese (593408769) BMI 40.0-44.9, adult (Z68.41) Active confirmed Problem Testicular hypofunction (597864851) Testosterone deficiency in male (E29.1) Active confirmed Problem Gastroesophageal reflux disease (642486320) Gastroesophageal reflux disease, unspecified whether esophagitis present (K21.9) Active confirmed Problem Primary hypertension (34708413) Primary hypertension (I10) Active confirmed Vital Signs Heart Rate 106 /min 03/15/2025 Blood pressure diastolic 80 mm Hg 03/15/2025 Height 75 in 03/15/2025 Blood pressure systolic 130 mm Hg 03/15/2025 Weight 338.0 lbs 03/15/2025 BMI 42.24 kg/m2 03/15/2025 Encounters Encounter Location Date Provider Diagnosis [facility] [address] [place] [id number] 11/30/2024 Karsten Cosby Morbid obesity E66.0 1 ; Essential hypertension I10 ; Gastroesophageal reflux disease, unspecified whether esophagitis present K21.9 and BMI 40.0-44.9, adult Z68.41 [facility] [address] [place], [place] [id number] 01/01/2025 Karsten Cosby Acute midline low ba ck pain, unspecified whether sciatica present M54.50 [facility] [address] [place], [place] [id number] 01/08/2025 Karsten Cosby Acute midline low ba ck pain, unspecified whether sciatica present M54.50 [facility] [address] [place], [place] [id number] 03/15/2025 Karsten Cosby Gastroenteritis K52. 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 [facility] [address] [place], [place] [id number] 03/30/2025 Karsten Cosby [facility] [address] [place], [place] [id number] 05/07/2024 Karsten Cosby Generalized abdomina l pain R10.84 and History of IBS Z87.19 [facility] [address] [place], [place] [id number] 12/01/2024 Karsten Cosby [facility] [address] [place], [place] [id number] 12/18/2024 Karsten Cosby Anxiety F41.9 Assessments Encounter Date Diagnosis (ICD [...] unspecified whether sciatica present (ICD-10 - M54.50) 03/15/2025 Gastroenteritis (ICD-10 - K52.9) Resolved 03/15/2025 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) Check MRI per radiology recommendations 11/30/2024 Gastroesophageal reflux disease, unspecified whether esophagitis present (ICD-10 - K21.9) 11/30/2024 BMI 40.0-44.9, adult (ICD-10 - Z68.41) Plan Of Treatment Next Appt Details Provider Name:Karsten potts, 04/26/2025 05:00:00 PM, [address], [place], [place], [id number], Insurance Providers Payer Name Payer Address Payer Phone Subscriber Number Group Number Insured Name Patient Relationship to Insured Coverage Start Date Coverage End Date [employer] [facility] [address] [place] [address] [id number] KASIA BEST Self - patient is the insured Medical (General) History 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 History ICD Code Irritable Bowel Syndrome Hypertension Vitamin D deficiency Surgical History Surgery Date(Month/Year) Hospitalization History Reason Date(Month/Year) [facility] ER - Abdominal Pain w/ Vomiting 01/2023
--- NOTE | 2025-03-31 06:08 | ECG_ITS ---
APPROVED REPORT Exam: Resting ECG HR:114 bpm ECG Measurements Heart Rate 114 AXES [place] 116 P 47 QRSd 101 QRS 41 QT 325 T 2 QTc 392 Conclusion SINUS TACHYCARDIA WITH SHORT NY INTERVAL NONSPECIFIC T-WAVE ABNORMALITY No STEMI Electronically signed by : MADELEINE WATSON, 04/01/2025 04:35:29
[2025-03-31] MEDS: MORPHINE 4MG/ML SYRINGE 4 MG IV (06:19)
[2025-03-31] MEDS: ONDANSETRON 4MG/2ML VIAL 4 MG IV (06:19)
[2025-03-31 06:21] LABS: Hematocrit 46.4 % (42.0-52.0); Hemoglobin 15.4 g/dL (14.1-18.0); Immature Granulocytes % 0.4 %; Mean Corpuscular HGB Conc 33.2 g/dL (31.8-35.4); Mean Corpuscular Hemoglobin 26.5 pg (27.0-31.2); Mean Corpuscular Volume 79.9 fl (80-94); Nucleated Red Blood Cells % 0 %; Platelet Count 418 K/mm3 (142-424); Red Blood Count 5.81 M/mm3 (4.60-6.20); Red Cell Distribution Width-SD 37.3 fL; White Blood Count 15.3 K/mm3 (4.8-10.8)
--- NOTE | 2025-03-31 06:23 | HMH.EDGENADL ---
Discharge Plan Disposition Patient Disposition: Home, Self-Care Prescriptions Prescriptions: No Action pantoprazole 40 mg tablet,delayed release (DR/EC) 40 mg PO DAILY duloxetine 60 mg capsule,delayed release(DR/EC) 120 mg PO DAILY cefuroxime axetil 500 mg tablet 500 mg PO BID Qty: 6 0RF ondansetron HCl 4 mg tablet 4 mg PO Q8H PRN (Reason: nausea and vomiting) Qty: 12 0RF dicyclomine 10 mg capsule 10 mg PO TIDP PRN (Reason: abdominal pain) Qty: 30 0RF Referrals Follow up/Referrals: Karsten Draper MD [Primary Care Provider, Medical] - See instructions Aroldo Dawkins II, MD [Staff Physician, Gastroenterology] - See instructions Activity Restrictions/Add. Instructions Additional Instructions/Restrictions: At this time it was felt you are safe to be discharged home. If new or worsening symptoms please do not hesitate to return the emergency department. Please call and schedule appoint with Dr. Dawkins as soon as you are able as discussed. Clinical Impressions Clinical Impression: Abdominal pain Instructions Patient Instructions: DI for Acute Abdominal Pain Print Language Print Language: Hungarian Discharge ED Provider: Raghav Lobo General Adult HPI <Raghav Lobo MD - Last Filed: 03/31/25 06:51> General Chief complaint: Abdominal Pain Stated complaint: abd pain, vomting, diarrhea Time Seen by Provider: 03/31/25 06:05 Mode of Arrival: Ambulatory Source of Information: Patient Description of Symptoms (Recalled from ER Triage Doc. by RN): pt to ED with c/o abd pain, N/V/D since last night. no medications taken at home History of Present Illness HPI narrative: 29-year-old male presents to the ER with abdominal pain, nausea, vomiting, diarrhea since last night. Patient reports he gets episodes of this periodically. He states for the last 15 years he has had episodes like this that often result in him being hospitalized. At the end of 2023 he had EPEC and was hospitalized for antibiotics. He was hospitalized again at the end of January for these exact symptoms. The hospitalist at that time put the patient on empiric antibiotics though he had negative stool studies and unremarkable labs. Review of records demonstrates his CT only showed findings of gastroenteritis. Patient reports that he has previously been seen by a specialist and that his intestines produce too much of something that makes them cramp and spasm . He does not report a specific name of a diagnosis. Patient did not take any medications prior to arrival. When he arrives he is sweating and obviously uncomfortable appearing. He denies bloody or bilious vomitus, denies bloody or melanotic stool. He denies knowing of any specific foods that cause his symptoms. He denies any alcohol or illicit drug use. No other complaints or concerns Related Data Home Medications ?Medication ?Instructions ?Recorded ?Confirmed duloxetine 60 mg capsule,delayed 120 mg PO DAILY 01/09/24 02/24/25 release pantoprazole 40 mg tablet,delayed 40 mg PO DAILY 01/09/24 02/24/25 release Previous Rx's ?Medication ?Instructions ?Recorded cefuroxime axetil 500 mg tablet 500 mg PO BID #6 tabs 02/25/25 dicyclomine 10 mg capsule 10 mg PO TIDP PRN abdominal pain 02/25/25 #30 caps ondansetron HCl 4 mg tablet 4 mg PO Q8H PRN nausea and 02/25/25 vomiting #12 tabs Allergies Allergy/AdvReac Type Severity Reaction Status Date / Time No Known Allergies Allergy Verified 10/08/24 17:20 [facility] <Raghav Lobo MD - Last Filed: 03/31/25 06:51> [facility] Disclaimer: The information contained in this section may have been updated after the patient was seen, as this information can be updated by other users. 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 Viral syndrome Sinusitis Libido, decreased Fatigue Hypogonadism Acute streptococcal pharyngitis URI (upper respiratory infection) Sore throat Bilateral otitis media Vitamin D deficiency GERD (gastroesophageal reflux disease) Hypertension Depression Anxiety Post-concussional syndrome Head injury due to trauma Strep throat Abdominal pain Sprain of right foot Exposure to COVID-19 virus Surgical History No significant past surgical history Family History No significant family history Social History Smoking Status: Never smoker alcohol intake: never current occupational status: employed Travel in the last 8 weeks?: None Have you lived/traveled outside US in past 30 days?: No Contact w/someone who lives/traveled outside US past 30 days?: No Exposure to someone with infectious disease in past 14 days?: No Do you have a fever (greater than 100.4 F or 38 C)?: No Have you tested positive for COVID-19?: No Exposed to someone with COVID-19 in past 14 days?: No Do you have a sore throat?: No Do you have a cough?: No Do you have any weakness?: No Do you have any diarrhea?: Yes Are you experiencing any unusual bleeding?: No Do you have any muscle aches/pain?: No Do you have any abdominal pain?: Yes Are you experiencing loss of taste or smell?: No Other 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 Have you received the Flu Vaccine for this season: No Have you received the Pneumonia Vaccine: No <Raghav Lobo MD - Last Filed: 03/31/25 06:51> ROS Obtained: Yes Systems reviewed as appropriate & no additional complaints except as documented Per HPI Physical Exam <Raghav Lobo MD - Last Filed: 03/31/25 06:51> General General appearance: alert Comment: Sweaty and uncomfortable appearing Head Head exam: atraumatic and normocephalic Eye Eye exam: Present PERRL and EOMI ENT ENT exam: Present mucous membranes moist Neck Neck exam: Present normal inspection and full ROM Chest Chest inspection: Present symmetric chest wall rise Respiratory Respiratory exam: Present normal lung sounds bilaterally; Absent respiratory distress, wheezes or stridor Cardiovascular Cardiovascular exam: Present regular rate and normal rhythm Abdominal Exam Abdominal exam: Present soft and tenderness (Diffuse, generalized, moderate); Absent distention, guarding or rebound Extremities Exam Extremities exam: Present full ROM; Absent edema Neurological Exam Neurological exam: Present alert and oriented X3; Absent motor sensory deficit Psychiatric Psychiatric exam: Present normal affect and normal mood Skin Skin exam: Present warm and other (Damp and diaphoretic) Medical Decision Making <Raghav Lobo MD - Last Filed: 03/31/25 06:51> Medical Records Medical records reviewed: Yes I reviewed the patient's medical records. Screening: Per USPSTF and CDC recommendations, given the prevalence of disease in our region, it is our hospital?s policy to screen for HIV and viral Hepatitis for all patients aged 18 and over and those with ongoing risk factors. MR Comment: See HPI Reginald Inquiry Pt receiving controlled substance: No Vital Signs: 03/31/25 06:06 03/31/25 06:45 03/31/25 07:01 Temperature 98.1 F Temperature Source Oral Pulse Rate 108 H 105 H Pulse Rate [Left Radial] 111 H Respiratory Rate 16 Blood Pressure 114/90 127/79 Blood Pressure [Right Arm] 168/95 H Blood Pressure Mean [Right Arm] 119 Blood Pressure Source [Right Arm] Automatic Cuff Blood Pressure Position [Right Arm] Sitting 02 Sat by Pulse Oximetry 97 95 98 Oxygen Delivery Method Room Air 03/31/25 07:30 03/31/25 08:00 03/31/25 08:30 Temperature Temperature Source Pulse Rate 97 H 86 98 H Pulse Rate [Left Radial] Respiratory Rate 23 19 20 Blood Pressure 133/69 127/68 123/67 Blood Pressure [Right Arm] Blood Pressure Mean [Right Arm] Blood Pressure Source [Right Arm] Blood Pressure Position [Right Arm] 02 Sat by Pulse Oximetry 95 94 L 94 L Oxygen Delivery Method 03/31/25 09:01 Temperature Temperature Source Pulse Rate 92 H Pulse Rate [Left Radial] Respiratory Rate 16 Blood Pressure 113/51 L Blood Pressure [Right Arm] Blood Pressure Mean [Right Arm] Blood Pressure Source [Right Arm] Blood Pressure Position [Right Arm] 02 Sat by Pulse Oximetry 94 L Oxygen Delivery Method Lab Data Lab Results 03/31/25 06:06: WBC 15.3 H, RBC 5.81, Hgb 15.4, Hct 46.4, MCV 79.9 L, MCH 26.5 L, MCHC 33.2, RDW 13.2, Plt Count 418, MPV 8.8, Neut % (Auto) 74.2, Lymph % (Auto) 18.8, Andrews % (Auto) 5.2, Eos % (Auto) 0.8, Baso % (Auto) 0.6, Neut # (Auto) 11.4 H, Lymph # (Auto) 2.9, Andrews # (Auto) 0.8, Eos # (Auto) 0.1, Baso # (Auto) 0.1, PT 10.7, INR 0.96, Sodium 138, Potassium 3.9, Chloride 105, Carbon Dioxide 21 L, Anion Gap 15.9 H, BUN 13, Creatinine 0.70, Estimated Creat Clear 244, Estimated GFR 135, Est GFR ( Amer) 164, Glucose 141 H, Lactate 1.8, Calcium 9.8, Total Bilirubin 1.1, AST 41, ALT 43, Alkaline Phosphatase 85, Troponin I < 0.01, Total Protein 8.3 H D, Albumin 4.7, Globulin 3.6 H, Albumin/Globulin Ratio 1.3, Lipase 50 03/31/25 06:37: Urine Color Yellow, Urine Appearance Clear, Urine pH 6.0, Ur Specific [place] 1.030, Urine Protein 2+ A, Urine Glucose (UA) Negative, Urine Ketones Negative, Urine Blood Trace-i, Urine Nitrate Negative, Urine Bilirubin Negative, Urine Urobilinogen 0.2, Ur Leukocyte Esterase Negative, Urine RBC Occasional, Urine WBC Occasional, Ur Squamous Epith Cells 3-5, Calcium Oxalate Crystal 2+, Urine Bacteria 1+, Urine Mucus Trace, Stl C. cayetanensis PCR Not detected, Stool Rotavirus (PCR) Not detected, Stl Adenov F 40/41 PCR Not detected, Stool Astrovirus (PCR) Not detected, Stool Campylobacter PCR Not detected, Stl C.difficile Tox PCR Not detected, Stool Cryptosporidium PCR Not detected, Stl E.coli Shiga Tox PCR Not detected, Stool E coli O157 PCR Not detected, Stl Enterotoxigenic E PCR Not detected, Stool EPEC (PCR) Not detected, Stool EAEC (PCR) Not detected, Stl E. histolytica PCR Not detected, Stool Giardia Lamblia PCR Not detected, Stool Salmonella PCR Not detected, Stool Sapovirus (PCR) Not detected, Stl P. shigelloides PCR Not detected, Stl Shigella/EIEC PCR Not detected, St Y.enterocolitica PCR Not detected, Stool Vibrio (PCR) Not detected, Stl Vibrio cholerae PCR Not detected, Stl Norovirus GI/GII PCR Not detected 03/31/25 06:06 03/31/25 06:06 Orders (Tests/Meds): ED MEDICATIONS Generic Name Dose Route Start Last Admin Trade Name Freq PRN Reason Stop Dose Admin Sodium Chloride 10 ml 03/31/25 07:26 03/31/25 07:27 Sodium Chloride 0.9% 10ml Syr (Rad Only) IV 04/30/25 07:25 10 ml NEEDED PRN Administration Maintain IV Site Discontinued Medications Generic Name Dose Route Start Last Admin Trade Name Freq PRN Reason Stop Dose Admin Acetaminophen 1,000 mg 03/31/25 06:39 03/31/25 06:46 Acetaminophen 1,000mg/100ml Vial IV 03/31/25 06:40 1,000 mg ONCE ONE Administration Dicyclomine HCl 20 mg 03/31/25 06:18 03/31/25 06:46 Dicyclomine 10mg Capsule PO 03/31/25 06:19 20 mg ONCE ONE Administration Droperidol 2.5 mg 03/31/25 06:35 03/31/25 06:46 Droperidol 5mg/2ml Vial IV 03/31/25 06:36 2.5 mg ONCE ONE Administration Lactated Ringer's 1,000 mls @ 999 mls/hr 03/31/25 06:18 03/31/25 06:47 Lactated Ringer's 1000 Ml Bag IV 03/31/25 07:18 999 mls/hr .Q1H1M ONE Administration Iopamidol 75 ml 03/31/25 07:26 03/31/25 07:27 Iopamidol-370 (76%);100ml Bottle IV 03/31/25 07:27 75 ml ONCE ONE Administration Ketorolac Tromethamine 15 mg 03/31/25 06:39 03/31/25 06:47 Ketorolac 15mg/Ml Vial IV 03/31/25 06:40 15 mg ONCE ONE Administration Morphine Sulfate 4 mg 03/31/25 06:08 03/31/25 06:19 Morphine 4mg/Ml Syringe IV 03/31/25 06:09 4 mg ONCE ONE Administration Ondansetron HCl 4 mg 03/31/25 06:08 03/31/25 06:19 Ondansetron 4mg/2ml Vial IV 03/31/25 06:09 4 mg ONCE ONE Administration ORDERS Category Date Time Status CT angio abdomen pelvis Stat Cat Scan 03/31/25 06:34 Completed Complete Blood Count Auto Diff Stat Lab 03/31/25 06:06 Completed Comprehensive Metabolic Panel Stat Lab 03/31/25 06:06 Completed Diarrhea 23 Panel, PCR Stat Lab 03/31/25 06:37 Completed Lactic Acid Stat Lab 03/31/25 06:06 Completed Lipase Stat Lab 03/31/25 06:06 Completed Prothrombin Time INR Stat Lab 03/31/25 06:06 Completed Trop I [Troponin I] Stat Lab 03/31/25 06:06 Completed Urinalysis and Microscopic Stat Lab 03/31/25 06:37 Completed Medical Decision Narrative: In summary, this 29-year-old male with comorbidities described in the HPI presents to the emergency department today with abdominal pain, nausea, vomiting, diarrhea. On initial evaluation patient is mildly tachycardic but otherwise hemodynamically stable, afebrile, appears uncomfortable and diaphoretic, cardiopulmonary exam aside from tachycardia is benign, patient has diffuse abdominal tenderness with no rebound or guarding, not peritonitic. Differential diagnosis includes but is not limited to viral syndrome, gastroenteritis, IBS, bowel obstruction, infectious diarrhea, pancreatitis, cyclic vomiting syndrome, mesenteric ischemia, celiac artery compression, SMA syndrome, also considered the possibility of autoimmune pathology though I am not likely to identify this tonight, among others. Based on these concerns, I ordered hematologic and serum labs, CT imaging with angiography, urinalysis, stool study. Patient received Toradol, acetaminophen, morphine, Zofran initially for treatment. IV fluids and Bentyl are also being administered. ECG was performed, no prolonged QTc, and droperidol administered. Labs personally reviewed demonstrate mild leukocytosis WBC 15.3, no anemia, normal platelets, mildly elevated anion gap consistent with vomiting and diarrheal illness, lactate normal at 1.8. ECG personally interpreted demonstrates sinus tachycardia at, rate 114, normal axis, SC short at 160 ms but there is no delta wave, no WPW, normal QTc, no STEMI. Patient handed off to Dr. Martinez in stable condition pending urine, stool, and imaging workup. <Tha Martinez MD - Last Filed: 03/31/25 10:03> Vital Signs: 03/31/25 06:06 03/31/25 06:45 03/31/25 07:01 Temperature 98.1 F Temperature Source Oral Pulse Rate 108 H 105 H Pulse Rate [Left Radial] 111 H Respiratory Rate 16 Blood Pressure 114/90 127/79 Blood Pressure [Right Arm] 168/95 H Blood Pressure Mean [Right Arm] 119 Blood Pressure Source [Right Arm] Automatic Cuff Blood Pressure Position [Right Arm] Sitting 02 Sat by Pulse Oximetry 97 95 98 Oxygen Delivery Method Room Air 03/31/25 07:30 03/31/25 08:00 03/31/25 08:30 Temperature Temperature Source Pulse Rate 97 H 86 98 H Pulse Rate [Left Radial] Respiratory Rate 23 19 20 Blood Pressure 133/69 127/68 123/67 Blood Pressure [Right Arm] Blood Pressure Mean [Right Arm] Blood Pressure Source [Right Arm] Blood Pressure Position [Right Arm] 02 Sat by Pulse Oximetry 95 94 L 94 L Oxygen Delivery Method 03/31/25 09:01 Temperature Temperature Source Pulse Rate 92 H Pulse Rate [Left Radial] Respiratory Rate 16 Blood Pressure 113/51 L Blood Pressure [Right Arm] Blood Pressure Mean [Right Arm] Blood Pressure Source [Right Arm] Blood Pressure Position [Right Arm] 02 Sat by Pulse Oximetry 94 L Oxygen Delivery Method Lab Data Lab Results 03/31/25 06:06: WBC 15.3 H, RBC 5.81, Hgb 15.4, Hct 46.4, MCV 79.9 L, MCH 26.5 L, MCHC 33.2, RDW 13.2, Plt Count 418, MPV 8.8, Neut % (Auto) 74.2, Lymph % (Auto) 18.8, Andrews % (Auto) 5.2, Eos % (Auto) 0.8, Baso % (Auto) 0.6, Neut # (Auto) 11.4 H, Lymph # (Auto) 2.9, Andrews # (Auto) 0.8, Eos # (Auto) 0.1, Baso # (Auto) 0.1, PT 10.7, INR 0.96, Sodium 138, Potassium 3.9, Chloride 105, Carbon Dioxide 21 L, Anion Gap 15.9 H, BUN 13, Creatinine 0.70, Estimated Creat Clear 244, Estimated GFR 135, Est GFR ( Amer) 164, Glucose 141 H, Lactate 1.8, Calcium 9.8, Total Bilirubin 1.1, AST 41, ALT 43, Alkaline Phosphatase 85, Troponin I < 0.01, Total Protein 8.3 H D, Albumin 4.7, Globulin 3.6 H, Albumin/Globulin Ratio 1.3, Lipase 50 03/31/25 06:37: Urine Color Yellow, Urine Appearance Clear, Urine pH 6.0, Ur Specific [place] 1.030, Urine Protein 2+ A, Urine Glucose (UA) Negative, Urine Ketones Negative, Urine Blood Trace-i, Urine Nitrate Negative, Urine Bilirubin Negative, Urine Urobilinogen 0.2, Ur Leukocyte Esterase Negative, Urine RBC Occasional, Urine WBC Occasional, Ur Squamous Epith Cells 3-5, Calcium Oxalate Crystal 2+, Urine Bacteria 1+, Urine Mucus Trace, Stl C. cayetanensis PCR Not detected, Stool Rotavirus (PCR) Not detected, Stl Adenov F 40/41 PCR Not detected, Stool Astrovirus (PCR) Not detected, Stool Campylobacter PCR Not detected, Stl C.difficile Tox PCR Not detected, Stool Cryptosporidium PCR Not detected, Stl E.coli Shiga Tox PCR Not detected, Stool E coli O157 PCR Not detected, Stl Enterotoxigenic E PCR Not detected, Stool EPEC (PCR) Not detected, Stool EAEC (PCR) Not detected, Stl E. histolytica PCR Not detected, Stool Giardia Lamblia PCR Not detected, Stool Salmonella PCR Not detected, Stool Sapovirus (PCR) Not detected, Stl P. shigelloides PCR Not detected, Stl Shigella/EIEC PCR Not detected, St Y.enterocolitica PCR Not detected, Stool Vibrio (PCR) Not detected, Stl Vibrio cholerae PCR Not detected, Stl Norovirus GI/GII PCR Not detected Orders (Tests/Meds): ED MEDICATIONS Generic Name Dose Route Start Last Admin Trade Name Freq PRN Reason Stop Dose Admin Sodium Chloride 10 ml 03/31/25 07:26 03/31/25 07:27 Sodium Chloride 0.9% 10ml Syr (Rad Only) IV 04/30/25 07:25 10 ml NEEDED PRN Administration Maintain IV Site Discontinued Medications Generic Name Dose Route Start Last Admin Trade Name Freq PRN Reason Stop Dose Admin Acetaminophen 1,000 mg 03/31/25 06:39 03/31/25 06:46 Acetaminophen 1,000mg/100ml Vial IV 03/31/25 06:40 1,000 mg ONCE ONE Administration Dicyclomine HCl 20 mg 03/31/25 06:18 03/31/25 06:46 Dicyclomine 10mg Capsule PO 03/31/25 06:19 20 mg ONCE ONE Administration Droperidol 2.5 mg 03/31/25 06:35 03/31/25 06:46 Droperidol 5mg/2ml Vial IV 03/31/25 06:36 2.5 mg ONCE ONE Administration Lactated Ringer's 1,000 mls @ 999 mls/hr 03/31/25 06:18 03/31/25 06:47 Lactated Ringer's 1000 Ml Bag IV 03/31/25 07:18 999 mls/hr .Q1H1M ONE Administration Iopamidol 75 ml 03/31/25 07:26 03/31/25 07:27 Iopamidol-370 (76%);100ml Bottle IV 03/31/25 07:27 75 ml ONCE ONE Administration Ketorolac Tromethamine 15 mg 03/31/25 06:39 03/31/25 06:47 Ketorolac 15mg/Ml Vial IV 03/31/25 06:40 15 mg ONCE ONE Administration Morphine Sulfate 4 mg 03/31/25 06:08 03/31/25 06:19 Morphine 4mg/Ml Syringe IV 03/31/25 06:09 4 mg ONCE ONE Administration Ondansetron HCl 4 mg 03/31/25 06:08 03/31/25 06:19 Ondansetron 4mg/2ml Vial IV 03/31/25 06:09 4 mg ONCE ONE Administration ORDERS Category Date Time Status CT angio abdomen pelvis Stat Cat Scan 03/31/25 06:34 Completed Complete Blood Count Auto Diff Stat Lab 03/31/25 06:06 Completed Comprehensive Metabolic Panel Stat Lab 03/31/25 06:06 Completed Diarrhea 23 Panel, PCR Stat Lab 03/31/25 06:37 Completed Lactic Acid Stat Lab 03/31/25 06:06 Completed Lipase Stat Lab 03/31/25 06:06 Completed Prothrombin Time INR Stat Lab 03/31/25 06:06 Completed Trop I [Troponin I] Stat Lab 03/31/25 06:06 Completed Urinalysis and Microscopic Stat Lab 03/31/25 06:37 Completed ECG Data Tracing #1: Independently interpreted by me rate is 114, rhythm is regular, axis is normal, no ST elevation in anatomical contiguous leads, QTc 392. Medical Decision Narrative: In summary, this 29-year-old male with comorbidities described in the HPI presents to the emergency department today with abdominal pain, nausea, vomiting, diarrhea. On initial evaluation patient is mildly tachycardic but otherwise hemodynamically stable, afebrile, appears uncomfortable and diaphoretic, cardiopulmonary exam aside from tachycardia is benign, patient has diffuse abdominal tenderness with no rebound or guarding, not peritonitic. Differential diagnosis includes but is not limited to viral syndrome, gastroenteritis, IBS, bowel obstruction, infectious diarrhea, pancreatitis, cyclic vomiting syndrome, mesenteric ischemia, celiac artery compression, SMA syndrome, also considered the possibility of autoimmune pathology though I am not likely to identify this tonight, among others. Based on these concerns, I ordered hematologic and serum labs, CT imaging with angiography, urinalysis, stool study. Patient received Toradol, acetaminophen, morphine, Zofran initially for treatment. IV fluids and Bentyl are also being administered. ECG was performed, no prolonged QTc, and droperidol administered. Labs personally reviewed demonstrate mild leukocytosis WBC 15.3, no anemia, normal platelets, mildly elevated anion gap consistent with vomiting and diarrheal illness, lactate normal at 1.8. ECG personally interpreted demonstrates sinus tachycardia at, rate 114, normal axis, SC short at 160 ms but there is no delta wave, no WPW, normal QTc, no STEMI. Patient handed off to Dr. Martinez in stable condition pending urine, stool, and imaging workup. Tha Martinez: Upon assumption of care patient is hemodynamically stable. Workup thus far reviewed by me hematologic labs largely nonactionable there is a nonspecific leukocytosis of 15.3, no transfusable anemia no significant thrombocytopenia synthetic function of the liver with PT/INR normal no LANETTE or critical electrolyte abnormality mild elevation of the anion gap. Lipase normal patient is undergoing crystalloid resuscitation. Urinalysis interpreted by me and not consistent with infection on the dip. Diarrhea panel pending CT angio abdomen pelvis pending. Recent MRI of the liver less than 1 week ago has moderately fatty liver and hepatomegaly, normal pancreas, normal gallbladder and biliary ducts, no lymphadenopathy. CT imaging of the abdomen pelvis no evidence of aneurysm dissection stable hypodense liver lesion, no critical stenosis with patent intra-abdominal arteries. Stool studies negative. On repeat evaluation patient had large acceptable resolution of his current pain. Given this patient is appropriate for outpatient management at this time will be referred to Dr. Dawkins for continued evaluation. Critical Care <Raghav Lobo MD - Last Filed: 03/31/25 06:51> Critical Care Time Critical Care Time: No
[2025-03-31 06:26] LABS: Alanine Aminotransferase 43 U/L (12-78); Albumin Level 4.7 g/dl (3.5-5.0); Albumin/Globulin Ratio 1.3 (1.1-1.8); Alkaline Phosphatase 85 U/L (38-126); Anion Gap 15.9 mEq/L (5-15); Aspartate Amino Transferase 41 U/L (17-59); Bilirubin,Total 1.1 mg/dl (0.2-1.3); Blood Urea Nitrogen 13 mg/dl (9-20); Calcium 9.8 mg/dl (8.4-10.2); Carbon Dioxide 21 mmol/L (22.0-30.0); Chloride 105 mmol/L (98-107); Creatinine Clearance Estimated 244 mL/min (50-200); Creatinine,Serum 0.70 mg/dl (0.66-1.25); Estimated Glomerular Filt Rate 135 ml/min (>60); GFR (African American) 164 ML/MIN (>60); Globulin 3.6 g/dL (1.3-3.2); Glucose 141 mg/dl (74-100); Lipase 50 U/L (23-300); Potassium 3.9 mmoL/L (3.5-5.1); Sodium 138 mmol/L (136-145); Total Protein,Serum 8.3 g/dl (6.3-8.2)
[2025-03-31 06:28] LABS: INR 0.96 (0.9-1.1); Prothrombin Time 10.7 seconds (10.1-12.5)
--- NOTE | 2025-03-31 06:34 | CT_ITS ---
FINAL REPORT TECHNIQUE: Pre-and postcontrast images of the abdomen through the pelvis were performed by computed tomography. Extensive 3-D reconstruction images were performed. A CTA was performed. This study was performed with techniques to keep radiation doses as low as reasonably achievable (ALARA). Individualized dose reduction techniques using automated exposure control or adjustment of mA and/or kV according to the patient's size were employed. CLINICAL HISTORY: sudden abd pain, n/v/d COMPARISON: 02/23/2025 FINDINGS: ABDOMEN: The lung bases are clear. Precontrast images demonstrate no evidence of nephrolithiasis. There is mild fatty infiltration of the liver. A hypodense lesion is again identified in the inferior right lobe of the liver measuring 2.2 cm in greatest dimension, unchanged in size. The spleen, pancreas, adrenal glands, and kidneys are unremarkable. PELVIS: The appendix is not identified. The small bowel is unremarkable. No evidence of stranding. The urinary bladder is decompressed. There is no pelvic free fluid. A few small lymph nodes in the right lower quadrant are stable. The bony pelvis is unremarkable. CTA: The abdominal aorta is proper caliber. The SMA, celiac axis, and HEDY are patent. There is no significant stenosis or calcification. The renal arteries are patent bilaterally. The iliac arteries are patent bilaterally. IMPRESSION: No evidence of aneurysm or dissection. Stable hypodense liver lesion. MRI could better evaluate. Reviewed, Interpreted and Dictated by Joseph Lorenzana MD Transcribed by Maia Johnson Authenticated and [facility]
[2025-03-31 06:45] LABS: Adenovirus F 40/41, stool Not Detected (NotDetected); Clostridium Difficile A/B, PCR Not Detected (NotDetected); Cyclospora Cayetanesis Not Detected (NotDetected); Microscopic, Urine URINE MICROSCOPIC (MICROSCOPIC); Plesimonas Shigalloides, PCR Not Detected (NotDetected); Salmonella, PCR Not Detected (NotDetected); Shiga-like toxin E coli Not Detected (NotDetected); Shigella Enterovasive E coli Not Detected (NotDetected); Vibrio, PCR Not Detected (NotDetected); Yersinia Entercolitica, PCR Not Detected (NotDetected)
[2025-03-31 06:46] LABS: Bilirubin,Urine Negative (Negative); Color,Urine YELLOW (Yellow); Glucose,Urine (UA) Negative (Negative); Ketones,Urine Negative (Negative); Leukocyte Esterase,Urine Negative (Negative); PH,Urine 6.0 (5.0-8.5); Protein,Urine 2+ (Negative); Urobilinogen,Urine 0.2 EU/dl (0.2)
[2025-03-31] MEDS: ACETAMINOPHEN 1,000MG/100ML VIAL 1000 MG IV (06:46)
[2025-03-31] MEDS: droPERidol 5MG/2ML VIAL 2.5 MG IV (06:46)
[2025-03-31] MEDS: KETOROLAC 15MG/ML VIAL 15 MG IV (06:47)
[2025-03-31] MEDS: LACTATED RINGERS 1000ML 1,000 ML 999 ML IV (06:47)
[2025-03-31 06:50] LABS: Specific Gravity, Urine 1.030 (1.005-1.030)
--- NOTE | 2025-03-31 06:53 | HMH.ITSTN ---
Went to get patient at 6:40am, nurse stated his iv came out so they were gonna get a new one and get an ekg, then call us when he's ready.
[2025-03-31 07:04] LABS: Troponin I < 0.01 ng/ml (0.00-0.034)
[2025-03-31 07:23] LABS: RBC,Urine Occasional #/hpf (0-3); WBC,Urine Occasional #/hpf (0-3)
[2025-03-31 07:24] LABS: Bacteria,Urine 1+ /lpf; Calcium Oxalate Crystals,Urine 2+ /lpf; Mucus,Urine Trace /lpf
[2025-03-31] MEDS: IOPAMIDOL-370 (76%);100ML BOTTLE 75 ML IV (07:27)
[2025-03-31] MEDS: SODIUM CHLORIDE 0.9% 10ML SYR (RAD ONLY) 10 ML IV (07:27)
== END 2025-03-31 10:13 | disposition home or self-care (01) ==
PROVIDERS: Emergency Provider Emergency Medicine; PCP Family Medicine
DX: R10.84 Generalized abdominal pain (principal); R11.2 Nausea with vomiting, unspecified; R19.7 Diarrhea, unspecified; R00.0 Tachycardia, unspecified
CPT/HCPCS: 74174; 80053; 81001; 83605; 83690; 84484; 85025; 85610; 87507; 93005; 96361; 96374; 96375; 99285; J0131; J1790; J1885; J2270; J2405; J7120; Q9967

== ENCOUNTER 2025-04-12 11:08 | Outpatient (CLI) | payer BC, SELFPAY ==
--- OUTSIDE RECORDS SUMMARY | 2025-01-01 11:45 | XMS_ITS ---
Author Organization Jen Address [address] [facility] [address] [place] [id number] Care Team Providers Care Cyber Operator Name Role Phone Bonny Karsten Unavailable [phone] Allergies No Known Allergies REASON FOR VISIT [...] 30 day(s) Active Vitamin D3 1.25 MG (03764 UT) 1 capsule Orally Once a week 02/12/2024 Active Vital Signs Weight 336.8 lbs 01/01/2025 Blood pressure systolic 150 mm Hg 01/02/20 25 Blood pressure diastolic 789 mm Hg 025 Heart Rate 99 /min 01/01/2025 Height 75 in 01/01/2025 BMI 42.09 kg/m2 01/01/2025 Encounters Encounter Location Date Provider Diagnosis Jen [address] [facility] [address] [place] [phone] 01/01/2025 Karsten Draper Acute midline low ba [...] Next Appt Details Follow Up: prn, Reason: Provider Name:Karsten Mccurdy ry, 04/26/2025 05:00:00 PM, [address] [facility] 36 [facility], [address], [place], [place], [phone], Progress Notes * ESTEPHANIA KASIA ADOB:1995 (29 yo M)Acc No.[id number]:01/01/2025 Progress Notes Patient: KASIA STROUD Provider: Arina Draper M.D. :1995 A ge:29 Y S ex:Male Date:01/01/2025 Address:[address] [place], [place] [phone] Subjective: * Chief Complaints: * 1 . [...] Medications: T aking Vitamin D3 1.25 MG (31446 UT) Capsule 1 capsule Orally Once a [...] * Images: Billing Information: * Visit Code: 99803 Office Visit, Est Pt., Level 3. * Procedure Codes: * Electronic signature of Michelle Draper MD on 04/12/2025 at 11:10 AM EDT Sign off status: Pending * Provider: Arina Draper M.D. Date: 0 01/01/2025 Generated for Nelson hunter/Héctor/Khalifitting on: 0 04/12/2025 11:10 AM EDT History and Physical Notes * [...]
--- OUTSIDE RECORDS SUMMARY | 2025-01-08 12:00 | XMS_ITS ---
Author Organization Delicia Address 1210 [facility] [address] [place] [id number] Care Team Providers Care Automatic Fancy Machine Operator Name Role Phone Karsten Draper Unavailable [phone] Allergies No Known Allergies Results Component Value Reference Range Notes X ray : Spine, lumbosacral Reviewed date:01/12/2025 02:27:10 PM Interpretation:Negative Performing Lab: Notes/Report: Negative REASON FOR VISIT back still hurting Medications Medication SIG (Take, Route, Frequency, Duration) Notes Start Date End Date Status Irbesartan 300 MG 1 tablet Orally Once a day 02/09 Active DULoxetine HCl 60 MG 2 capsule Orally On ce a day; Duration: 30 day(s) 10/14/2023 Active Wegovy 0.25 MG/0.5ML 0.5 mL Subcutaneous once a week; Duration: 30 days 12/02/2024 Active tiZANidine HCl 2 MG 1 or 2 tablets as ne eded Orally 3 times a day 01/08/2025 Active Pantoprazole Sodium 40 MG 1 tablet Orall y Once a day; Duration: 30 day(s) Active Meloxicam 15 MG 1 tablet Orally Once a day; Duration: 30 days 01/08/2025 Active Vitamin D3 1.25 MG (11308 UT) 1 capsule Orally Once a week 02/12/2024 Active Vital Signs Weight 345 lbs 01/08/2025 Blood pressure systolic 138 mm Hg 01/09/20 25 Blood pressure diastolic 84 mm Hg 025 Heart Rate 115 /min 01/08/2025 Height 75 in 01/08/2025 BMI 43.12 kg/m2 01/08/2025 Encounters Encounter Location Date Provider Diagnosis Jen [address]10 [facility] 36 [facility] [address] [place] [id number] 01/08/2025 Karsten Draper Acute midline low ba ck pain, unspecified whether sciatica present M54.50 Assessments Encounter Date Diagnosis (ICD Code) Assessment Notes Treatment Notes Treatment Clinical Notes Section Notes 01/08/2025 Acute midline low back pain, unspecified whether sciatica present (ICD-10 - M54.50) Plan Of Treatment Medication Medication Name Sig Start Date Stop Date Notes tiZANidine HCl 2 MG 1 or 2 tablets as ne eded Orally 3 times a day 01/08/2025 Meloxicam 15 MG 1 tablet Orally Once a day; Duration: 30 days 01/08/2025 Next Appt Details Follow Up: via phone to repo rt test results, Reason: Provider Name:Karsten Mccurdy ry, 04/26/2025 05:00:00 PM, [address] [facility] 36 [facility], [address], [place], [place], [id number], Progress Notes * KASIA BEST ADOB:1995 (29 yo M)Acc No.[id number]:01/08/2025 Progress Notes Patient: KASIA STROUD Provider: Arina Draper M.D. :1995 A ge:29 Y S ex:Male Date:01/08/2025 Address:[address] [place] [address], [facility] Subjective: * Chief Complaints: * 1 . Back still hurting. * HPI: Misa mclaughlin back: 29 year old male presents with c/o Low Back Pain P t complains of ongoing lower back pain. Pt was seen 01/01 and rx'd Dexamethasone 4mg and Cyclobenzaprine 5mg. Pt states that pain did start to improve while taking steroid but pain came right back . Pt states he does not take Flexiril because he does not like the way they make him feel. * ROS: D ERMATOLOGY: no R moira. [...] Medications: T aking Vitamin D3 1.25 MG (64167 UT) Capsule 1 capsule Orally Once a [...] 2 capsule Orally Once a day , Discontinued dexAMETHasone 4 MG Tablet 1 tablet Orally twice a day , Discontinued Cyclobenzaprine HCl 5 MG Tablet 1 or 2 tablets as needed Orally 3 times a day , Medication List reviewed and reconciled with the patient * Allergies: N .K.D.A. Objective: * Vitals: W t: 345, Temp: 98.1, BP: 138/84, HR: 115, Nurse: kiara, Ht: 75, BMI:43.12. * Examination: G eneral Examination: General Appearance: [...] ? Plan: * Treatment: * Follow Up: v ia phone to report test results * Images: Billing Information: * Visit Code: 51393 Office Visit, Est Pt., Level 3. * Procedure Codes: * Electronic signature of Michelle Draper MD on 04/12/2025 at 11:10 AM EDT Sign off status: Pending * Provider: Arina Draper M.D. Date: 0 01/08/2025 Generated for Nelson hunter/Héctor/Rusty on: 0 04/12/2025 11:10 AM EDT History and Physical Notes * HPI (History of Present Illness) Category Sub-Category Detail Notes Category Not es Lower back Low Back Pain Pt complains of ongoing lower back pain. Pt was seen 01/01 and rx'd Dexamethasone 4mg and Cyclobenzaprine 5mg. Pt states that pain did start to improve while taking steroid but pain came right back . Pt states he does not take Flexiril because he does not like the way they make him feel Examination Category Sub-Category Detail Notes Category Not es General Examination General Appearance: NAD Lower back Straight leg raising test: negative bilaterally Gait: stands and moves slo wly due to pain Inspection: normal curvature of spine Palpation: bilateral lower lumb ar paraspinal spasms
--- OUTSIDE RECORDS SUMMARY | 2025-02-02 05:00 | XMS_ITS ---
Author Organization Jen Address [address] [facility] 36 [facility] [address] [place] [id number] Care Team Providers Care Retail Parts Professional Name Role Phone Bonny Karsten Jewel [phone] Allergies No Known Allergies REASON FOR VISIT 2 months and fasting Encounters Encounter Location Date Provider Diagnosis Jen [facility] [address] [facility] [address] [place] [phone] 02/02/2025 Karsten Draper Plan Of Treatment Next Appt Details Provider Name:Karsten Mccurdy ry, 04/26/2025 05:00:00 PM, [facility] [facility] [address] [facility], [address], [place], [id number], Progress Notes * KASIA BEST ADOB:1995 (29 yo M)Acc No.[id number]:02/02/2025 Progress Notes Patient: KASIA STROUD Provider: Arina Draper M.D. :1995 A ge:29 Y S ex:Male Date:02/02/2025 Address:[address] [place] [address], [facility] Subjective: * Chief Complaints: * 1 . 2 months and fasting. * ROS: D ERMATOLOGY: no R moira. [...] . Alcohol: no. Sexually active: yes. * Allergies: N .K.D.A. Objective: * Vitals: Assessment: Plan: * Treatment: * Images: Billing Information: * Visit Code: * Procedure Codes: * Electronic signature of Michelle Draper MD on 04/12/2025 at 11:10 AM EDT Sign off status: Pending * Provider: Arina Draper M.D. Date: 0 02/02/2025 Generated for Nelson hunter/Héctor/Khalifitting on: 0 04/12/2025 11:10 AM EDT
--- OUTSIDE RECORDS SUMMARY | 2025-03-15 13:30 | XMS_ITS ---
Author Organization [facility] Address [address] [facility] [address] [place] [id number] Care Team Providers Care Tool Crib Clerk Name Role Phone Karsten Draper Unavailable [phone] Allergies No Known Allergies Results Component Value Reference Range Notes MRI : Liver, with and withou t contrast Reviewed date:03/30/2025 08:30:40 AM Interpretation: Performing Lab: Notes/Report: REASON FOR VISIT [facility] D/C Medications Medication SIG (Take, Route, Frequency, Duration) Notes Start Date End Date Status DULoxetine HCl 60 MG 2 capsule Orally On ce a day; Duration: 30 day(s) 10/14/2023 Active Vitamin D3 1.25 MG (15742 UT) 1 capsule Orally Once a week 02/12/2024 Active Pantoprazole Sodium 40 MG 1 tablet Orall y Once a day; Duration: 30 day(s) Active Irbesartan 300 MG 1 tablet Orally Once a day 02/10/2024 Active tiZANidine HCl 2 MG 1 or 2 tablets as ne eded Orally 3 times a day 01/08/2025 Active Meloxicam 15 MG 1 tablet Orally Once a day; Duration: 30 days 01/08/2025 Active Vital Signs Weight 338.0 lbs 03/15/2025 Blood pressure systolic 130 mm Hg 03/15/20 25 Blood pressure diastolic 80 mm Hg 025 Heart Rate 106 /min 03/15/2025 Height 75 in 03/15/2025 BMI 42.24 kg/m2 03/15/2025 Encounters Encounter Location Date Provider Diagnosis [facility] [address] [facility] [address] [place] [id number] 03/15/2025 Karsten Draper Gastroenteritis K52. 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 :1995 A ge:29 Y S ex:Male Date:03/15/2025 Address:[address] [place] [address], [facility] Subjective: * Chief Complaints: * 1 . H D/C. * HPI: H PI: 29 year old male presents with c/o Here for follow up on: H hospitalization> Pt was seen at the ER on 02/23 for c/o waking up that morning with nausea, vomiting, and diarrhea. Pt denied any blood in his stool and stated his emesis contained ingested food, with no blood. Pt had also c/o decreased amount of urine output. Pt was given Oxycodone which was then discontinued for causing more nausea and vomiting. Pt recieved morphine in his IV and Zofran for the nausea, and sts he felt better the following day. Pt sts he is still doing well. * ROS: D ERMATOLOGY: no R moira. [...] Medications: T aking Vitamin D3 1.25 MG (28485 UT) Capsule 1 capsule Orally Once a week , Taking Pantoprazole Sodium 40 MG Tablet Delayed Release 1 tablet Orally Once a day , Taking Irbesartan 300 MG Tablet 1 tablet Orally Once a day , Taking DULoxetine HCl 60 MG Capsule Delayed Release Particles 2 capsule Orally Once a day , Taking Meloxicam 15 MG Tablet 1 tablet Orally Once a day , Taking tiZANidine HCl 2 MG Tablet 1 or 2 tablets as needed Orally 3 times a day , Discontinued Wegovy 0.25 MG/0.5ML Solution Auto-injector 0.5 mL Subcutaneous once a week , Medication List reviewed and reconciled with the patient * Allergies: N .K.D.A. Objective: * Vitals: W t: 338.0, Temp: 98.2, BP: 130/80, HR: 106, Nurse: JERRY, Ht: 75, BMI:42.24. * Examination: G eneral Examination: General Appearance: N AD. H eart: R SR. L ungs:?clear to auscultation. Assessment: * Assessment: 1. G astroenteritis - K52.9 (Primary) 2 . 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 N eoplasm of uncertain behavior of liver I maging: MRI : Liver, with and without contrast (Performed Date - 03/26/2025) Notes: Check MRI per radiology recommendations?? * Procedure Codes: 1 036F TOBACCO NON-USER, 3075F SYST BP GE 130 - 139MM HG, 3079F DIAST BP 80-89 MM HG * Follow Up: 4 to 6 Weeks fasting * Images: Billing Information: * Visit Code: 29741 Office Visit, Est Pt., Level 3. * Procedure Codes: 1036F TOBACCO NON-USER. 3075F SYST BP GE 130 - 139MM HG. 3079F DIAST BP 80-89 MM HG. * Electronic signature of Michelle Draper MD on 04/12/2025 at 11:10 AM EDT Sign off status: Pending * Provider: Arina Draper M.D. Date: 0 03/15/2025 Generated for Pushpai elsa/Héctor/eTransmitting on: 0 04/12/2025 11:10 AM EDT History and Physical Notes * HPI (History of Present Illness) Category Sub-Category Detail Notes Category Not es HPI Here for follow up on: [facility] hospi talization> Pt was seen at the ER on 02/23 for c/o waking up that morning with nausea, vomiting, and diarrhea. Pt denied any blood in his stool and stated his emesis contained ingested food, with no blood. Pt had also c/o decreased amount of urine output. Pt was given Oxycodone which was then discontinued for causing more nausea and vomiting. Pt recieved morphine in his IV and Zofran for the nausea, and sts he felt better the following day. Pt sts he is still doing well Examination Category Sub-Category Detail Notes Category Not es General Examination Heart: RSR Lungs: clear to auscultatio n General Appearance: NAD
--- OUTSIDE RECORDS SUMMARY | 2025-03-30 04:26 | XMS_ITS ---
Author Organization [facility] Address [address] [facility] [place] [address] [place] [id number] Care Team Providers Care Labor And Delivery Nurse Name Role Phone [place], Karsten Unavailable [phone] Reason For Referral Diagnosis 1 Fatty liver (K76.0) Diagnosis 2 Elevated LFTs (R79.8 9) Diagnosis 3 Abnormal MRI, liver (R93.2) Diagnosis 4 Frequent diarrhea (R 19.7) [facility] Referring Provider First Name Karsten Referring Provider Last Name Bonny Referring Provider Speciality Family Pra ctice Referred Organization [facility] Referred Provider TERESA DAWKINS Referred Address [address] [place],[id number], Referred Provider Specialty Gastroentero logy General Notes Alice Malik 2024 09:52:43 AM > faxed to Dr. Dawkins Referral Priority Routine REASON FOR VISIT Abnormal MRI Problems Problem Type SNOMED Code ICD Code Onset Dates Problem Status W/U Status Risk Notes Problem Fatty liver (005503399) Fatty liver (K76.0) Active confirmed Encounters Encounter Location Date Provider Diagnosis [facility] [address] [facility] [place] 36 [facility] [address] [place] [id number] 03/30/2025 Karsten Draper Elevated LFTs R79.89 ; Abnormal MRI, liver R93.2 and Fatty liver K76.0 Assessments Encounter Date Diagnosis (ICD Code) Assessment Notes Treatment Notes Treatment Clinical Notes Section Notes 03/30/2025 Elevated LFTs (ICD-10 - R79.89) 03/30/2025 Abnormal MRI, liver (ICD-10 - R93.2) 03/30/2025 Fatty liver (ICD-10 - K76.0) Plan Of Treatment Referrals Referral Date Details 04/01/2025 04/01/2025, TERESA FOLEY, [address], [place], [place], [id number], Next Appt Details Provider Name:Karsten Deion Kaz ry, 04/26/2025 05:00:00 PM, [address], [address], [place], [place], [id number], Progress Notes * KASIA BEST ADOB:1995 (29 yo M)Acc No.[id number]:03/30/2025 Patient: KASIA STROUD :1995 A ge:29 Y S ex:Male Address:[address] [place] [address], [place] [address] Subjective: * Chief Complaints: * A bnormal MRI * 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: * Surgical History: * Hospitalization/Major Diagno stic Procedure: * Medications: Objective: * Vitals: * Physical Examination: Assessment: * Assessment: 1. E levated LFTs - R79.89 (Primary) 2 . A bnormal MRI, liver - R93.2 ? 3 . F atty liver - K76.0 Plan: * Treatment: 2. A bnormal MRI, liver Referral To:[facility] Reason: 3. F atty liver Referral To:[facility] DAWK[facility] Reason: 4. O thers Referral To:[facility] DA[facility] Reason: * Procedure Codes: * true * Date: Generated for Pushpai elsa/Shalinig/eTransmitting on: 0 04/12/2025 11:10 AM EDT Consultation Request Notes Referral Date Referring Provider Referred Provider Not es 04/01/2025 Karsten Draper EARL
--- OUTSIDE RECORDS SUMMARY | 2025-04-12 11:10 | XMS_ITS | Clinical Summary ---
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 No confirmatory testing is required. Blood Venous blood specimen / Unknown Venipuncture / Unknown 05/08/2024 9:25 AM EDT 05/08/2024 9:46 AM EDT us Emily Perales MD LAB BLOOD ORDERABLES Final Res ult Performing Organization Address City/[facility]/ZIP Co de Phone Number [facility] [address] [place] [address] * Hepatitis C Antibody - ED (05/08/2024 9:25 AM EDT) Hepatitis C Antibody Negative Negative 05/08/2024 10:27 AM EDT [facility] Blood Venous blood specimen / Unknown Venipuncture / Unknown 05/08/2024 9:25 AM EDT 05/08/2024 9:46 AM EDT Emily Perales MD LAB BLOOD ORDERABLES Final Res ult [facility] [address] [place] [address] from Last 3 Months or Most Recently Relevant to Health [place] [address] [facility] MEDICAID [facility]
--- OUTSIDE RECORDS SUMMARY | 2025-04-12 11:10 | XMS_ITS | Patient Health Record ---
[facility] Address [address] [id number] Care Team Providers Care Civil Clerk Name Role Phone Karsten Draper Unavailable [phone] Allergies No Known Allergies Results Component Value Reference Range Notes X ray : Spine, lumbosacral Reviewed date:01/12/2025 02:27:10 PM Interpretation:Negative Performing Lab: Notes/Report: Negative MRI : Liver, with and withou t contrast Reviewed date:03/30/2025 08:30:40 AM Interpretation: Performing Lab: Notes/Report: H-CBC Reviewed date:02/25/2025 08:07:41 AM Interpretation: Performing [...] AGRATIO 1.5 1.1-1.8 ALP 75 38-126 U/L Reason For Referral Reason patient requests to be seen at [facility] Gastroenterology Diagnosis 1 Generalized abdomina l pain (R10.84) Diagnosis 2 History of IBS (Z87. 19) [facility] Referring Provider First Name Karsten Referring Provider Last Name Bonny [facility] Specialty Gastroentero logy General Notes Alice Malik 024 4:03:53 PM > faxed referral to [facility] G[facility] Referral Priority Routine Diagnosis 1 Fatty liver (K76.0) Diagnosis 2 Elevated LFTs (R79.8 9) Diagnosis 3 Abnormal MRI, liver (R93.2) Diagnosis 4 Frequent diarrhea (R 19.7) [facility] Referring Provider First Name Karsten Referring Provider Last Name Bonny Referring Provider Speciality Family Pat [place] Referred Organization [facility] OP Referred Provider TERESA DAWKINS Referred Address [address] [facility] [address] [id number] Referred Provider Specialty Gastroentero logy General Notes Alice Malik 2024 09:52:43 AM > faxed to Dr. Dawkins Referral Priority Routine Medications Medication SIG (Take, Route, Frequency, Duration) Notes Start Date End Date Status DULoxetine HCl 60 MG 2 capsule Orally On ce a day; Duration: 30 day(s) 10/14/2023 Active Vitamin D3 1.25 MG (29755 UT) 1 capsule Orally Once a week [...] Status Risk Notes Problem Vitamin D deficiency (31391716) Vitamin D deficiency (E55.9) Active confirmed Problem Essential hypertension (52638405) Essential hypertension (I10) Active confirmed Problem Morbid obesity (543474915) Morbid obesity (E66.01) Active confirmed Problem Anxiety (66829566) Anxiety (F41.9) Active confi rmed Problem Adjustment disorder with mixed anxiety and depressed mood (365612769) Adjustment disorder with mixed anxiety and depressed mood (F43.23) Active confirmed Problem Chronic pain (00465875) Other chronic pain (G89.29) Active confirmed Problem Fatty liver (755413289) Fatty liver (K76.0) Active confirmed Problem Body mass index 40+ - morbidly obese (101729993) BMI 40.0-44.9, adult (Z68.41) Active confirmed Problem Testicular hypofunction (924738904) Testosterone deficiency in male (E29.1) Active confirmed Problem Gastroesophageal reflux disease (545959487) Gastroesophageal reflux disease, unspecified whether esophagitis present (K21.9) Active confirmed Problem Primary hypertension (28745626) Primary hypertension (I10) Active confirmed Vital Signs Heart Rate 106 /min 03/15/2025 Blood pressure diastolic 80 mm Hg 03/15/2025 Height 75 in 03/15/2025 Blood pressure systolic 130 mm Hg 03/15/2025 Weight 338.0 lbs 03/15/2025 BMI 42.24 kg/m2 03/15/2025 Encounters Encounter Location Date Provider Diagnosis [facility] [address] [place], [place] [id number] 11/30/2024 Karsten [place] Morbid obesity E66.0 1 ; Essential hypertension I10 ; Gastroesophageal reflux disease, unspecified whether esophagitis present K21.9 and BMI 40.0-44.9, adult Z68.41 [facility] [address] [place], [place] [id number] 01/01/2025 Karsten [place] Acute midline low ba ck pain, unspecified whether sciatica present M54.50 [facility] [address] [place], [place] [id number] 01/08/2025 Karsten [place] Acute midline low ba ck pain, unspecified whether sciatica present M54.50 [facility] [address] [place], [place] [id number] 03/15/2025 Karsten [place] Gastroenteritis K52. 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 [facility] [address] [place], [place] [id number] 05/07/2024 Karsten [place] Generalized abdomina l pain R10.84 and History of IBS Z87.19 [facility] [address] [facility] [address] [place], [place] [id number] 12/01/2024 Karsten [place] [facility] [address] [place], [place] [id number] 12/18/2024 Karsten [place] Anxiety F41.9 [facility] [address] [place], [place] [id number] 03/30/20[place] Elevated LFTs R79.89 ; Abnormal MRI, liver [...] - D37.6) Check MRI per radiology recommendations 03/30/2025 Elevated LFTs (ICD-10 - R79.89) 03/30/2025 Abnormal MRI, liver (ICD-10 - R93.2) 03/30/2025 Fatty liver (ICD-10 - K76.0) 11/30/2024 Gastroesophageal reflux disease, unspecified whether esophagitis present (ICD-10 - K21.9) 11/30/2024 BMI 40.0-44.9, adult (ICD-10 - Z68.41) Plan Of Treatment Next Appt Details Provider Name:Karsten Mccurdy ry, 04/26/2025 05:00:00 PM, [address], [address], [place], [id number], Insurance Providers Payer Name Payer Address Payer Phone Subscriber Number Group Number Insured Name Patient Relationship to Insured Coverage Start Date Coverage End Date [facility] [address] [place] [address] [phone] [id number] KASIA SANFORD Self - patient is the insured Medical (General) History 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 History ICD Code Irritable Bowel Syndrome Hypertension Vitamin D deficiency Surgical History Surgery Date(Month/Year) Hospitalization History Reason Date(Month/Year) [facility] - Abdominal Pain w/ Vomiting 01/2023
[2025-04-14 06:21] LABS: Pancreatic Elastase, Fecal 609 (>200)
[2025-04-14 07:16] LABS: Calprotectin, Fecal 8 ug/g (0-120)
== END 2025-04-12 23:59 | disposition home or self-care (01) ==
LOC: LAB 11:08
PROVIDERS: PCP Family Medicine; Visit Provider Nurse Practitioner Family
DX: R19.7 Diarrhea, unspecified (principal)
CPT/HCPCS: 82653; 83993